=== PATIENT | female | born 1970 | race Caucasian/White ===

== ENCOUNTER 2018-07-26 13:31 | Emergency (ER) | payer MEDICARE, OTHER ==
[~2018-07-26] VITALS: Ht 154.9 cm; Wt 99.8 kg
[2018-07-26] MEDS ORDERED: FURO20TA4 (14:12)
[2018-07-26] MEDS ORDERED: DANT25CA (14:12)
[2018-07-26] MEDS ORDERED: GLYB2.5T4 (14:12)
[2018-07-26] MEDS ORDERED: CLOP75TA28 (14:12)
[2018-07-26] MEDS ORDERED: LEVO200T6 (14:12)
[2018-07-26] MEDS ORDERED: MIRA50TA (14:12)
[2018-07-26] MEDS ORDERED: AMIT25TA9 (14:12)
[2018-07-26] MEDS ORDERED: ATOR40TA70 (14:12)
[2018-07-26] MEDS ORDERED: DULO60CA58 (14:13)
[2018-07-26] MEDS ORDERED: METO-333 (14:13)
--- NOTE | 2018-07-26 14:15 | ED Cough/URI ---
General Chief Complaint: Cough/Cold/Flu Symptoms Stated Complaint: CONGESTION;COUGH Nursing Triage Note: ARRIVED VIA AMB TO ROOM 05. COMPLAINS OF COUGH AND CONGESTION X2 DAYS. STATES SHE HAS NOT TAKEN HER BP MEDS THIS AM. PT STATES SHE HAS THEM WITH HER ET VINCENT ENCOURAGED HER TO TAKE THEM. Source: patient Exam Limitations: no limitations History of Present Illness Date Seen by Provider: Jul 26, 2018 Time Seen by Provider: 14:13 Initial Comments Patient is a 48-year-old female who presents to the emergency room POV with complaints of cough and congestion for the past 2 days. She denies any fevers and reports only using Vicks vapor rub and cough drops for symptom treatment. She is also hypertensive on arrival to the emergency room and denies taking her blood pressure medications today but has been with her and I instructed her to take them. She reports that 2 of her roommates have also checked into the ER with her for similar complaints of URI. Timing/Duration: other (2 days) Severity/Quality: mild, dry cough Associated Symptoms: cough, nasal congestion Allergies and Home Medications Patient Home Medication List Home Medication List Reviewed: Yes Review of Systems Review of Systems Constitutional: see HPI; No chills, No fever EENTM: see HPI, nose congestion, other (sinus drainage) Respiratory: see HPI, cough Past Ywybzvd-Vsfoql-Lsnndu Hx Past Med/Social Hx: Reviewed Nursing Past Med/Soc Hx Patient Social History Alcohol Use: Rarely Uses Recreational Drug Use: No Smoking Status: Current Everyday Smoker Recent Foreign Travel: No Contact w/Someone Who Travel: No Recent Infectious Disease Expo: No Recent Hopitalizations: No Past Medical History Surgeries: Yes (TRIPPLE BYPASS) Gallbladder Respiratory: No Cardiac: Yes Hypertension Neurological: No Gastrointestinal: No Musculoskeletal: No Endocrine: No HEENT: No Cancer: No Integumentary: No Family Medical History Reviewed Nursing Family Hx Physical Exam Vital Signs - First Documented 07/26/18 13:48 Temp 98.0 Pulse 101 Resp 16 B/P (MAP) 222/113 (149) Pulse Ox 97 O2 Delivery Room Air Capillary Refill : Less Than 3 Seconds Height: 5'1.00" Weight: 220lbs. oz. 99.465670oh; BMI Method:Stated General Appearance: WD/WN, no apparent distress Eyes: Bilateral Eye Normal Inspection, Bilateral Eye PERRL, Bilateral Eye EOMI HEENT: normal ENT inspection, TMs normal, pharynx normal Neck: non-tender, full range of motion, supple, normal inspection Respiratory: chest non-tender, lungs clear, normal breath sounds, no respiratory distress, no accessory muscle use Cardiovascular: normal peripheral pulses, regular rate, rhythm, no edema, no gallop, no JVD, no murmur Neurologic/Psychiatric: alert, normal mood/affect, oriented x 3 Skin: normal color, warm/dry Lymphatic: no adenopathy Progress/Results/Core Measures Suspected Sepsis Recent Fever Within 48 Hours: No Infection Criteria Present: Suspected New Infection New/Unexplained Altered Menta: No Sepsis Screen: No Definite Risk SIRS Temperature:98.0 Pulse: 101 Respiratory Rate: 16 Blood Pressure 222 /113 Mean: 149 Results/Orders Vital Signs/I&O 07/26/18 07/26/18 13:48 14:34 Temp 98.0 Pulse 101 81 Resp 16 16 B/P (MAP) 222/113 (149) 194/95 Pulse Ox 97 98 O2 Delivery Room Air Room Air Capillary Refill : Less Than 3 Seconds Blood Pressure Mean: 149 Progress Note : Time: 14:19 Progress Note I have seen and evaluated the patient. I have instructed her to continue over the counter medications for URI symptoms and the use of prescription cough syrup if needed that was provided. She did take her own blood pressure medications as prescribed. She agrees with plan of care, return precautions were given. Departure Impression Primary Impression: Upper respiratory infection Additional Impression: Viral illness Disposition: 01 HOME, SELF-CARE Condition: Stable/Unchanged Departure-Patient Inst. Decision time for Depature: 14:19 Patient Instructions: LOCAL PHYSICIAN LIST, Cough, Runny Nose, and the Common Cold (DC) Add. Discharge Instructions: Practice good hand hygiene by using hand sanitizers and handwashing. Use over- the-counter cough and cold medicine remedies as necessary. Tylenol Motrin if you have fever or malaise or body aches. Follow-up with your primary doctor if your symptoms are not improving by 5-7 days. Return back to the emergency room for any worsening symptoms or concerns as needed. All discharge instructions reviewed with patient and/or family. Voiced understanding. VINCENT SANTANA Jul 26, 2018 14:15
--- OUTSIDE RECORDS SUMMARY | 2018-07-26 14:27 | XMS REPORT ---
Author Author [facility] Organization [facility] Address [address] [place], [place] [address] Phone [phone] Summary purpose TRANSITION OF CARE AUTO GENERATION Chief Complaint and Reason for Visit No authorized Reason for Visit (Admitting Diagnosis) is available for this visit. Problem list No authorized problems tracked for continuity of care are available for this visit. Encounters No authorized problems tracked for encounter diagnoses are available for this visit. Medications No medications recorded for this patient visit Allergies, adverse reactions, alerts Allergen Category Ingredient Status Reaction Severity Onset Penicillins Drug Allergy Penicillins Confirmed or Verified Immunizations No immunizations recorded for this patient visit Relevant diagnostic tests and/or laboratory data RESULTS Radiology Results [id number]:03:00 DUP ILA UNILATERAL PACs Image DATE OF EXAM: Feb 18 2016 [id number] VENOUS DUPLEX-UNILATERAL- RIGHT: RADIOLOGY REPORT DATE OF SERVICE: 02/18/16 HISTORY: Right lower extremity pain, evaluate for deep venous thrombosis, history of CVA. RIGHT LOWER EXTREMITY VENOUS DOPPLER 1420 HOURS The lower extremity veins were evaluated with high resolution real time imaging, pulsed and color flow Doppler. There is normal spontaneous phasic flow in the common femoral, femoral, popliteal, posterior tibial, and greater saphenous veins. All deep vein segments are fully compressible. There is normal augmentation of flow with distal compression. No thrombi are evident. IMPRESSION: Normal bilateral lower extremity venous Doppler. MD BRANDON Sultana/pr02/18/2016 14:30:00 / 02/18/2016 14:54:03 cc:Kati Brown PA-C This document has been electronically Signed by: On: DATE OF EXAM: Feb 18 2016 [id number] VENOUS DUPLEX-UNILATERAL- RIGHT: RADIOLOGY REPORT DATE OF SERVICE: 02/18/16 HISTORY: Right lower extremity pain, evaluate for deep venous thrombosis, history of CVA. RIGHT LOWER EXTREMITY VENOUS DOPPLER 1420 HOURS The lower extremity veins were evaluated with high resolution real time imaging, pulsed and color flow Doppler. There is normal spontaneous phasic flow in the common femoral, femoral, popliteal, posterior tibial, and greater saphenous veins. All deep vein segments are fully compressible. There is normal augmentation of flow with distal compression. No thrombi are evident. IMPRESSION: Normal bilateral lower extremity venous Doppler. Herb Bob MD MWD/nh02/18/2016 14:30:00 / 02/18/2016 14:54:03 cc:Kati Brown PA-C This document has been electronically Signed by: HERB BOB MD On: Feb 18 20164:03P Result Amended on 2016-02-18 at 16:03:17. Previous status was MD. History of procedures No procedures recorded for this patient visit. Functional status No functional or cognitive status observations are available for this visit. Vital signs No authorized vital signs are available for this visit. Social history No Social History or smoking status observations were recorded for this visit. ( Unknown if ever smoked.) Treatment Plan No treatment plan text is available for this visit. Hospital discharge instructions No discharge instruction text is available for this visit.
--- OUTSIDE RECORDS SUMMARY | 2018-07-26 14:27 | XMS REPORT ---
Author Author [facility] [employer] [facility] Medical Staff Organization [facility] Address [address] [place], [place] [address] Phone [phone] Summary purpose TRANSITION OF CARE AUTO GENERATION [...] Relevant diagnostic tests and/or laboratory data RESULTS Chemistry [id number]:00:00 Result Normal Range Units Sodium 134 134-145 mEq/l Potassium 4.5 3.5-5.1 mEq/l Chloride L 97 98-107 mEq/l CO2 27.5 22-28 mEq/l Glucose H 199 70-105 mg/dl BUN H 29 7-18 mg/dl Creatinine H 1.33 0.6-1.0 mg/dl Calcium 8.9 8.4-10.2 mg/dl Magnesium L 1.5 1.7-2.8 mg/dl Osmolality L 279.7 280-300 mOsm/L Anion GAP 9.5 8-16 BUN/Creatinine Ratio H 21.8 10-20 Estimated GFR L 43 >=60 mL/min/1.7 History of procedures No procedures recorded for [...]
--- OUTSIDE RECORDS SUMMARY | 2018-07-26 14:28 | XMS REPORT ---
Author Author [facility] Organization [facility] Address [address] [place], [place] [address] Phone [phone] Care Team Providers Care Poundmaster Name Role Phone FAN SALCEDO PP [phone] Summary purpose TRANSITION OF CARE AUTO GENERATION [...] visit Relevant diagnostic tests and/or laboratory data No authorized results are available for this patient visit History of procedures Procedure Code Code Type Description Date Performed Performing Physician 20442 CPT-4 EMERGENCY DEPT VISIT 05-04-2016 NIMESH ANTONY 74906 CPT-4 EMERGENCY DEPT VISIT 05-04-2016 NIMESH ANTONY Functional status Functional Status Finding Observation Time Abdomen Appearance round :03 Abdomen non-tender :03 Cain no :03 Urination normal :03 Quality sym/unlabored :03 Cough absent :03 Secretions no :03 Breath Sounds RUL clear :03 Breath Sounds RML clear :03 Breath Sounds RLL clear :03 Breath Sounds KAYCEE clear :03 Breath Sounds LLL clear :03 Airway natural :03 Chest Tube no :03 Oxygen no :36 Temp >100.4 no :03 Temp <96.8 no :03 Chills with rigors no :03 HR > 90bpm no :03 Respirations > 20 no :03 Systolic <90 no :03 headache stiff neck no :03 WBC > 94911 no :03 Nursing Note Dismissed home per Dr Antony. Discharge instructions given and understood by pt who verbalized understanding. Wheeled to exit in stable condition. 05-04-2016 16:36 Vital signs Type Value Date Respiration Rate 18breaths per minute :36 Pulse 88beats per minute :36 Oxygen Saturation 99% :36 BP Systolic 128mmHg :36 BP Diastolic 84mmHg 62-69-210387:36 Temperature 99F 89-07-239071:36 Social history Type Value Smoking Status CURRENT EVERY DAY SMOKER Treatment Plan No treatment plan text is available for this visit. Hospital discharge instructions Flu 2014
--- OUTSIDE RECORDS SUMMARY | 2018-07-26 14:28 | XMS REPORT ---
Author Author [facility] Medical Staff Organization [facility] Address [address] [place], [place] [address] Phone [phone] Care Team Providers Care Traffic Control Operator Name Role Phone FAN SALCEDO PP [phone] Summary purpose TRANSITION OF CARE AUTO GENERATION [...] diagnostic tests and/or laboratory data RESULTS Chemistry [id number]:29:00 Result Normal Range Units Sodium 138 134-145 mEq/l Potassium 4.1 3.5-5.1 mEq/l Chloride L 97 98-107 mEq/l CO2 H 32.4 22-28 mEq/l Glucose H 172 70-105 mg/dl BUN H 21 7-18 mg/dl Creatinine H 1.43 0.6-1.0 mg/dl Calcium 9.0 8.4-10.2 mg/dl Osmolality 282.7 280-300 mOsm/L Anion GAP 8.6 8-16 BUN/Creatinine Ratio 14.7 10-20 Estimated GFR L 40 >=60 mL/min/1.7 History of procedures No procedures [...]
--- OUTSIDE RECORDS SUMMARY | 2018-07-26 14:28 | XMS REPORT ---
Author Author [facility] Medical Staff Organization [facility] Address [address] [place], [place] [address] Phone [phone] Care Team Providers Care Quality Assurance Name Role Phone FAN SALCEDO PP [phone] Summary purpose TRANSITION OF CARE AUTO GENERATION [...] for this patient visit History of procedures No procedures recorded for [...]
--- OUTSIDE RECORDS SUMMARY | 2018-07-26 14:28 | XMS REPORT ---
Author Author [facility] Medical Staff Organization [facility] Address [address] [place], [place] [address] Phone [phone] Care Team Providers Care Java Web Engineer Name Role Phone FAN SALCEDO PP [phone] Summary purpose TRANSITION OF CARE AUTO GENERATION [...] Code Type Description Date Performed Performing Physician 58592 CPT-4 PT EVALUATION 10-02-2015 FAN PAL 73275 CPT-4 THERAPEUTIC EXERCISES 10-15-2015 FAN PAL 88515 CPT-4 THERAPEUTIC EXERCISES 10-17-2015 FAN PAL Functional status No functional or cognitive status [...]
--- OUTSIDE RECORDS SUMMARY | 2018-07-26 14:28 | XMS REPORT ---
Author Author [facility] [employer] [facility] Medical Staff Organization [facility] Address [address] [place], [place] [address] Phone [phone] Care Team Providers Care Advance Seal Delivery System Maintainer Name Role Phone FAN SALCEDO PP [phone] Summary purpose TRANSITION OF CARE AUTO GENERATION [...]
--- OUTSIDE RECORDS SUMMARY | 2018-07-26 14:28 | XMS REPORT ---
Author [facility] Organization [facility] Address [address] [place], [place] [address] Phone [phone] Care Team Providers Care Drier Unloader Name Role Phone FAN SALCEDO PP [phone] FAN SALCEDO PP [phone] FAN SALCEDO PP [phone] Summary purpose TRANSITION OF CARE AUTO GENERATION Chief Complaint and Reason for Visit Admit Diagnosis 1 UTI VOMITING Problem list No authorized problems tracked for continuity of care are available for this visit. Encounters The following conditions tracked for encounter diagnoses were recorded for this visit: Finding or Diagnosis Status Certainty Chronicity Onset *URINARY TRACT INFECTION Active Medications No medications recorded for this patient visit Allergies, adverse reactions, alerts Allergen Category Ingredient Status Reaction Severity Onset Penicillins Drug Allergy Penicillins Confirmed or Verified Immunizations No immunizations recorded for this patient visit Relevant diagnostic tests and/or laboratory data RESULTS Blood Cultures 35-01-439984:30:00 Blood Culture Plate Date and Time 04/03/2015 13:35 SourceBLOOD CULTURE REPORT NoGrowth at 1 day. Unless otherwise notified. Final report in 5 Days. Release Date/Time: 04/04/2015 07:40 Chemistry [id number]:17:00 Result Normal Range Units Sodium 138 134-145 mEq/l Potassium 3.9 3.5-5.1 mEq/l Chloride 101 98-107 mEq/l CO2 22.9 22-28 mEq/l Glucose H 178 70-105 mg/dl BUN 18 7-18 mg/dl Creatinine H 1.27 0.6-1.0 mg/dl Calcium 8.5 8.4-10.2 mg/dl TP - Total Protein 6.6 6.0-8.3 g/dl Albumin L 3.1 3.5-5 g/dl Bilirubin - Total 0.3 0.1-1.0 mg/dl AST 12 10-42 IU/L ALT 17 12-65 IU/L ALP H 106 25-72 IU/L Osmolality 282.0 280-300 mOsm/L Albumin/Globulin Ratio 0.9 0-8 Anion GAP 14.1 8-16 BUN/Creatinine Ratio 14.2 10-20 Estimated GFR L 46 >=60 mL/min/1.7 :30:00 Result Normal Range Units Sodium 135 134-145 mEq/l Potassium 3.6 3.5-5.1 mEq/l Chloride 98 98-107 mEq/l CO2 24.0 22-28 mEq/l Glucose H 244 70-105 mg/dl BUN H 24 7-18 mg/dl Creatinine H 1.90 0.6-1.0 mg/dl Calcium 8.7 8.4-10.2 mg/dl Osmolality 282.2 280-300 mOsm/L Anion GAP 13.0 8-16 BUN/Creatinine Ratio 12.6 10-20 Estimated GFR L 29 >=60 mL/min/1.7 Hematology :17:00 Result Normal Range Units WBC H 14.9 4.8-10.8 103/uL RBC L 3.4 4.2-5.4 106/uL HGB L 11.2 12.0-16.0 g/dl HCT L 32.2 36.9-47.0 % MCV 94.2 81-99 FL MCH H 32.7 27-31 pg MCHC 34.8 33-37 g/dl RDW 13.0 11.5-15.5 % PLT 245 130-400 103/uL MPV 10.1 7.3-10.4 FL Neutro % H 73.1 40-70 % Lymph % L 15.7 20-40 % [place] % 9.4 0-10.0 % Eos % 1.6 0-7.0 % Baso % 0.2 0-2 % Neutro # H 10.9 1.5-7.5 103/uL Lymph # 2.3 0.9-4.0 103/uL [place] # H 1.4 0-0.8 103/uL Eos # 0.2 0-0.6 103/uL Baso # 0.0 0-0.1 103/uL :30:00 Result Normal Range Units WBC H 23.0 4.8-10.8 103/uL RBC L 3.5 4.2-5.4 106/uL HGB L 11.6 12.0-16.0 g/dl HCT L 33.3 36.9-47.0 % MCV 94.1 81-99 FL MCH H 32.8 27-31 pg MCHC 34.8 33-37 g/dl RDW 13.1 11.5-15.5 % PLT 268 130-400 103/uL MPV 10.2 7.3-10.4 FL Segs H 76.0 40-70 % Bands H 10.0 0-5 % Lymphs L 6.0 20-40 % [place] 7.0 0-10 % Eos 1.0 0-7 % Radiology Results :17:00 Result Normal Range Units MPV 10.1 7.3-10.4 FL :30:00 Result Normal Range Units MPV 10.2 7.3-10.4 FL History of procedures No procedures recorded for this patient visit. Functional status Functional Status Finding Observation Time Hearing Prob Loc none 17-42-795765:50 Vision Problems no 08-60-825729:50 Ambulation Asst Dev other (specify) Comment: leg brace 05-81-736526:50 Range of Motion full 97-79-115243:06 Muscle Strength RUE 2 passive ROM 75-95-374084:06 Muscle Strength RLE 2 passive ROM 00-99-932079:06 Muscle Strength LUE 5 ROM full resist 10-26-543305:06 Muscle Strength LLE 5 ROM full resist 74-45-549290:06 Transfers assist x 1 16-33-848728:06 Ambulation in room 58-39-775902:06 Balance unsteady 75-31-995923:06 Bathing Assistance minimal 63-72-037719:50 Eating Assistance minimal 46-76-168156:50 Dressing Assistance minimal 70-68-472372:50 Toileting Assistance minimal 00-94-023613:50 Transfer Assistance minimal 39-49-896498:50 Decline Slf Care/Mob no 12-96-731140:50 Phys Cond Stable yes 56-30-049687:50 Nutrition nausea/vomiting 60-73-471595:06 Diet ADA specify calorie 61-56-374863:34 Oral Cavity moist and intact : Teeth intact 21-25-705176:06 Dental Hygiene good 97-00-147238:06 Abdomen Appearance obese 37-49-118767:06 Abdomen soft 32-79-368300:06 Bowel Sounds present 87-64-279673:06 NG Tube no :06 Feeding Tube none 87-89-286723:06 Acin no 39-90-056295:06 Cont Bladder Irr no 46-86-355292:06 Ostomy no 26-87-970840:06 Stool normal :06 Color normal :00 Consistency loose :00 Urination normal 40-85-101206:06 Urine Clarity clear 48-87-517220:06 Urine Color yellow 37-09-289184:06 Quality sym/unlabored 58-36-370861:06 Cough absent :06 Secretions no :06 Breath Sounds RUL diminished :32 Breath Sounds RML diminished :32 Breath Sounds RLL diminished :32 Breath Sounds KAYCEE diminished :32 Breath Sounds LLL diminished 78-99-011827:32 Airway natural :06 Chest Tube no :06 Oxygen no :06 Oxygen Flow Rate ra 16-19-024548:32 C-PAP no 66-08-862263:06 BI-PAP no 90-77-026102:06 New Infection urinary tract infect 63-52-791488:06 Temp >100.4 no 99-45-813886:06 Temp <96.8 no :06 Chills with rigors no :06 HR > 90bpm yes 73-31-324480:06 Respirations > 20 no :06 Systolic <90 no 73-99-745319:06 headache stiff neck no 71-35-083064:06 WBC > 20136 yes 30-52-505959:06 WBC < 4000 no 46-09-608723:06 Rapid Resp no 95-77-745349:06 IV Site Location Rt forearm 35-78-782583:07 IV Type peripheral :07 IV Site Information existing :07 IV Site Start Attmpt 1 times :05 IV Site Benedict 22 :07 IV Site Appearance WNL :07 IV Site Color clear :07 IV Site Patent yes :07 Dressing Changed yes :05 Dressing Type occlusive :07 Nursing Note Pt off unit tp personal w/c to POV in good conditio with belongings in hand 82-89-162797:45 Cognitive Status Finding Observation Time Oriented To Date 5 Yes :[address] 5 Yes :50 Name 3 Objects 3 Yes :50 Name Object in Rm 2 Yes :50 Recall 3 Objects 3 Yes 77-53-964086:50 Repeats a Phrase 1 Yes :50 Follows Verbal Direc 3 Yes 29-65-661101:50 Follows Written Dire 1 Yes 97-87-085609:50 Write a Sentance 1 Yes :50 Draw an Object 1 Yes :50 Mini Mental Total 25 points :50 Less than 20 Phys not applicable 17-43-707277:50 Learning Ability comprehends well :00 Neurological yes :00 Psychological no :00 Physical yes :00 Hearing no :00 Printing Sales Representative Needed no :00 Sign Language no :00 Emotional no :00 Vision no :00 Laguage no :00 Financial no :00 Vital signs Type Value Date Respiration Rate 20breaths per minute :32 Pulse 103beats per minute :32 Oxygen Saturation 95% :32 BP Systolic 143mmHg :22 BP Diastolic 71mmHg :22 Temperature 98.7F 82-76-506086:22 Height 62inches 61-84-098338:45 Weight 217LB 77-29-999833:45 Social history Type Value Smoking Status FORMER SMOKER Treatment Plan No treatment plan text is available for this visit. Hospital discharge instructions Discharge Date/Time 04/04/2015 14:45 Accompanied By Spouse Relationship spouse/signif other Dismissal Condition good Disposition on DC home Valuables yes Valuable Type other (specify) Comment: clothes/brace Valuables Returned T patient DC Inst/Educ Give yes Exit Care Educ Given yes Med/Side Effects Rev yes DC Med Rec Rev yes Immun Indicated no PNE Vac refused Flu Vac refused Tetanus Vac current Diet Explained yes Follow up appt already scheduled Follow Up Appt D/T 04/12/2015 14:00
--- OUTSIDE RECORDS SUMMARY | 2018-07-26 14:28 | XMS REPORT ---
Author Author [facility] [employer] [facility] Medical Staff Organization [facility] [employer] [facility] Address [address] [place], [place] [address] Phone [phone] Care Team Providers Care Cut Pressman Name Role Phone FAN SALCEDO PP [phone] Summary purpose TRANSITION OF CARE AUTO GENERATION [...] tests and/or laboratory data RESULTS Radiology Results 34-31-940608:29:00 FOOT XRAY - 3 VIEW PACs Image DATE OF EXAM: Mar 25 2016 RAD 0649-FOOT XRAY-3 VIEW- RIGHT: RADIOLOGY REPORT DATE OF SERVICE: 03/25/16 HISTORY: Patient has right foot pain after trauma with a power chair running over the foot. RIGHT FOOT 3 VIEWS 1955 HOURS The bony structures and joints appear intact. No fracture or subluxation is seen. Soft tissues are swollen over the dorsum of foot. IMPRESSION: Soft tissue swelling. No fracture. Marlena Mckeon DO /lisa 03/26/2016 08:45:00 / 03/26/2016 09:32:09 cc:Fan Brown PA-C This document has been electronically Signed by: On: DATE OF EXAM: Mar 25 2016 RAD 0649-FOOT XRAY-3 VIEW- RIGHT: RADIOLOGY REPORT DATE OF SERVICE: 03/25/16 HISTORY: Patient has right foot pain after trauma with a power chair running over the foot. RIGHT FOOT 3 VIEWS 1955 HOURS The bony structures and joints appear intact. No fracture or subluxation is seen. Soft tissues are swollen over the dorsum of foot. IMPRESSION: Soft tissue swelling. No fracture. Marlena Mckeon DO MW/nh 03/26/2016 08:45:00 / 03/26/2016 09:32:09 cc:Fan Brown PA-C This document has been electronically Signed by: MARLENA MCKEON DO On: Mar 26 20163:29P Result Amended on 2016-03-26 at 15:29:33. Previous status was TN. History of procedures Procedure Code Code Type Description Date Performed Performing Physician 11815 CPT-4 X-RAY EXAM OF FOOT 03-25-2016 ROGELIO WAITELES 50318 CPT-4 EMERGENCY DEPT VISIT 03-25-2016 ROGELIO CANDELARIO 86037 CPT-4 EMERGENCY DEPT VISIT 03-25-2016 ROGELIO PALOMINO L1902 CPT-4 AFO ANKLE GAUNTLET 03-25-2016 ROGELIO PALOMINO Functional status Functional Status Finding Observation Time Abdomen Appearance round 13-36-829304:31 Abdomen non-tender :31 Cain no 18-58-498368:31 Urination normal 79-96-758778:31 Quality sym/unlabored :31 Cough absent :31 Secretions no :31 Airway natural :31 Chest Tube no :31 Oxygen no :10 Temp >100.4 no : Temp <96.8 no :31 Chills with rigors no :31 HR > 90bpm no :31 Respirations > 20 no :31 Systolic <90 no :31 headache stiff neck no :31 WBC > 37237 no :15 Nursing Note Pt exited ER with discharge instructions in personal power wheelchair in good condition. :21 Vital signs Type Value Date Respiration Rate 18breaths per minute :10 Pulse 94beats per minute :10 Oxygen Saturation 98% :10 BP Systolic 156mmHg 39-57-236727:10 BP Diastolic 90mmHg :10 Temperature 96.9F :10 Height 61inches :15 Weight 198LB :15 Social history Type Value Smoking Status CURRENT EVERY DAY SMOKER Treatment Plan No treatment plan text is available for this visit. Hospital discharge instructions Dismissal Condition good Disposition on DC home DC Inst/Educ Give yes Med/Side Effects Rev no (explain) Comment: no meds Flu Vac 2014
--- OUTSIDE RECORDS SUMMARY | 2018-07-26 14:28 | XMS REPORT ---
Author Author [facility] Medical Staff Organization [facility] Address [address] [place], [place] [address] Phone [phone] Care Team Providers Care Hospice Nurse Name Role Phone FAN SALCEDO PP [phone] Summary purpose TRANSITION OF CARE AUTO GENERATION Chief Complaint and Reason for Visit Admit Diagnosis 1 PAIN IN LIMB Problem list No authorized problems tracked for [...] Code Type Description Date Performed Performing Physician A9270 CPT-4 NON-COVERED ITEM OR SERVICE 04-20-2015 MARLENA JACQUELINE 24585 CPT-4 EMERGENCY DEPT VISIT 04-20-2015 MARLENA JACQUELINE 71666 CPT-4 EMERGENCY DEPT VISIT 04-20-2015 MARLENA PHILLIPS Functional status Functional Status Finding Observation Time Diet ADA specify calorie 22-74-014209:45 Abdomen Appearance round 23-91-781837:45 Abdomen non-tender 95-80-242858:45 Bowel Sounds present 53-79-651686:45 Urination normal 06-96-994415:45 Quality sym/unlabored 65-87-720199:45 Cough absent 24-50-815374:45 Secretions no :45 Breath Sounds RUL clear :45 Breath Sounds RML clear :45 Breath Sounds RLL clear :45 Breath Sounds KAYCEE clear :45 Breath Sounds LLL clear 63-68-052046:45 Airway natural :45 Oxygen no :45 Oxygen Flow Rate RA :40 Temp >100.4 no :45 Temp <96.8 no :45 Chills with rigors no :45 HR > 90bpm no :45 Respirations > 20 no :45 Systolic <90 no : headache stiff neck no :45 Nursing Note dc inst discussed with pt. dcd to home with scripts in good condition :15 Vital signs Type Value Date Respiration Rate 16breaths per minute :40 Pulse 97beats per minute : Oxygen Saturation 98% :40 BP Systolic 154mmHg :40 BP Diastolic 85mmHg :40 Temperature 97.4F :40 Social history No Social History or smoking status observations were recorded for this visit. ( Unknown if ever smoked.) Treatment Plan No treatment plan text is available for this visit. Hospital discharge instructions Dismissal Condition good Disposition on DC home DC Inst/Educ Give yes Med/Side Effects Rev yes Flu Vac no
--- OUTSIDE RECORDS SUMMARY | 2018-07-26 14:28 | XMS REPORT ---
Author [facility] Organization [facility] Address [address] [place] [address] Phone [phone] Care Team Providers Care Deburrer Name Role Phone FAN SALCEDO PP [phone] Summary purpose TRANSITION OF CARE AUTO GENERATION Chief Complaint and Reason for Visit Admit Diagnosis 1 CHEST PAIN NOS Problem list No authorized problems tracked for continuity of care are available for this visit. Encounters No authorized problems tracked for encounter diagnoses are available for this visit. Medications Home Medications Medication Directions Started Status Source Xanax 0.5 mg Tab 0.5 mg Oral PRN 3 Times A Day for anxiety Current Rx Discharge Report aspirin 81 mg Cap, delayed release 81 mg Oral 1 Daily Current Patient recall naproxen Oral 500 mg Oral Daily If Needed for pain with food Discont Rx Discharge Report levothyroxine 75 mcg tablet 1 tablet oral 1 Daily Current Family recall from memory escitalopram 20 mg tablet 1 tablet oral 1 Daily Discont Family recall from memory Novolog Mix 70-30 FlexPen 100 unit/mL subcutaneous pen 18 units subQ 2 Times Daily 15 minutes before breakfast and supper Current Family recall from memory furosemide 20 mg tablet 1 tablet oral Wednesday, Wednesday, Wednesday Current Family recall from memory Lipitor 20 mg tablet 1 tablet oral At Bed Time Current Patient medication list Reglan 5 mg tablet 0.5 tablet oral 3 Times Daily Before meals Current Patient medication list Miralax 17 gram oral powder packet 1 other oral 1 Daily Mix in 8 oz of water Current Patient medication list quetiapine 25 mg tablet 1 tablet oral At Bed Time Current Patient medication list baclofen 10 mg tablet 0.5 tablet oral 1 Daily This is given at noon in addition to the PRN order Current Patient medication list baclofen 10 mg tablet 0.25 tablet oral PRN Every 8 Hours Current Patient medication list Dulcolax (bisacodyl) 5 mg tablet,delayed release 2 tablet oral As Needed Current Patient medication list omeprazole 20 mg tablet,delayed release 1 tablet oral 2 Times Daily Current Patient medication list metoprolol succinate ER 25 mg tablet,extended release 24 hr 1 tablet oral 2 Times Daily Current Patient medication list Plavix 75 mg tablet 1 tablet oral 1 Daily Current Patient medication list DuoNeb 0.5 mg-3 mg(2.5 mg base)/3 mL solution for nebulization 1 inhalation inhl PRN Every 4 Hours Current Patient medication list lisinopril 5 mg tablet 1 tablet oral 1 Daily Current Patient medication list Lovenox 40 mg/0.4 mL subcutaneous syringe 1 other subQ 1 Daily Sub Q daily Current Patient medication list acetaminophen 325 mg tablet 2 tablet oral As Needed Current Patient medication list ibuprofen 200 mg capsule 3 tablet oral PRN Every 8 Hours Current Patient medication list Allergies, adverse reactions, alerts Allergen Category Ingredient Status Reaction Severity Onset Penicillins Drug Allergy Penicillins Confirmed or Verified Immunizations No immunizations recorded for this patient visit Relevant diagnostic tests and/or laboratory data RESULTS Radiology Results [id number]:44:00 MYOCARDIAL SPECT MULT PACs Image DATE OF EXAM: 2014 [id number] SPECT MULTIPLE : RADIOLOGY REPORT DATE OF SERVICE:02/05/2015 HISTORY: Chest pain, abnormal EKG, history of stroke PHARMACOLOGICAL STRESS AND RESTING MYOCARDIAL PERFUSION STUDY (LEXISCAN CARDIOLITE STUDY) 1000 HOURS The patient initially is given 9.2 mCi of technetium 99m labeled Cardiolite intravenously. After a 70-minute delay, resting SPECT perfusion images are obtained. The patient is given a pharmacological stress agent by the referring clinician. At maximal stress, the patient is given 35.0 mCi of technetium 99m labeled Cardiolite intravenously. After an 84-minute delay, gated stress SPECT perfusion images are obtained. On both the gated and nongated images on the stress study, there is a perfusion defect involving the anterior wall of the left ventricle. The anterior wall perfuses normally on the resting images. This, therefore, represents an area of reversible ischemia. When evaluating the report from the patient's previous study performed on 05/28/2011, this has apparently appeared in the interval. No additional perfusion defects are present. The computer suggests this involves 3% of the myocardium. On the gated study, the left ventricular ejection fraction is calculated at 51% which is normal. There is essentially normal segmental left ventricular cardiac wall motion and thickening present. The end-systolic volume is 47 cc with the end-diastolic volume being 95 cc. IMPRESSION: 1. There is an area of reversible ischemia involving the anterior wall of the left ventricle. This area is abnormal on the stress images and normal on the resting images and, therefore, represents an area of reversible ischemia. 2. There are no additional abnormalities on the stress study. 3. The gated images have a left ventricular ejection fraction calculated at 51% which is normal. There is normal segmental left ventricular cardiac wall motion and thickening present. MD BRANDON AlvaradoP/cc02/05/2015 16:27:00 / 02/05/2015 20:12:42 cc:Dr. Tania Brown PA-C This document has been electronically Signed by: On: History of procedures Procedure Code Code Type Description Date Performed Performing Physician 47446 CPT-4 CARDIOVASCULAR STRESS TEST 02-05-2015 GILBERT SYLVESTER 77801 CPT-4 HT MUSCLE IMAGE SPECT, MULT 02-05-2015 GILBERT SYLVESTER A9500 CPT-4 TC99M SESTAMIBI 02-05-2015 GILBERT SYLVESTER J2785 CPT-4 REGADENOSON INJECTION 02-05-2015 GILBERT SYLVESTER Functional status Functional Status Finding Observation Time IV Site Location Left wrist 88-33-104044:40 IV Type peripheral 69-05-902539:40 IV Site Information discontinued 55-51-708973:41 IV Site Start Attmpt 2 times :40 IV Site Benedict 22 79-92-180912:40 IV Site Appearance WNL 80-16-496528:41 IV Site Color clear 68-08-837807:41 IV Site Patent yes 46-00-942759:41 Dressing Type gauze 51-89-602852:41 Nursing Note Second set of scans are completed. Patient given verbal and written discharge instructions. Patient also given a to go bag with juice and a cereal bar. Patient placed in waiting room in good condition to wait for [facility] staff to come and pick her up. alf contacted that patient is ready. 201410:15 Vital signs Type Value Date Height 62inches :50 Weight 228LB 55-31-813023:50 Social history No Social History or smoking status observations were recorded for this visit. ( Unknown if ever smoked.) Treatment Plan No treatment plan text is available for this visit. Hospital discharge instructions Discharge Date/Time 02/05/2015 10:15 Dismissal Condition good Disposition on DC home
--- OUTSIDE RECORDS SUMMARY | 2018-07-26 14:28 | XMS REPORT ---
Author [facility] Organization [facility] Address [address] [id number] Phone [phone] Care Team Providers Care Nude Model Name Role Phone FAN SALCEDO PP [phone] Summary purpose TRANSITION OF CARE AUTO GENERATION [...] Observation Time IV Site Location Left wrist :40 IV Type peripheral :40 IV Site Information discontinued 05-25-428786:41 IV Site Start Attmpt 2 times :40 IV Site Benedict 22 :40 IV Site Appearance WNL 81-93-960413:41 IV Site Color clear :41 IV Site Patent yes :41 Dressing Type gauze 04-82-093106:41 Nursing Note Second set of scans are completed. Patient given verbal and written discharge instructions. Patient also given a to go bag with juice and a cereal bar. Patient placed in waiting room in good condition to wait for senior care staff to come and pick her up. [facility] contacted that patient is ready. 201410:15 Vital signs Type Value Date Height 62inches :50 Weight 228LB 68-68-871209:50 Social history No Social History or smoking status observations were recorded for this visit. ( Unknown if ever smoked.) Treatment Plan No treatment plan text is available for this visit. Hospital discharge instructions Discharge Date/Time 02/05/2015 10:15 Dismissal Condition good Disposition on OR home
--- OUTSIDE RECORDS SUMMARY | 2018-07-26 14:29 | XMS REPORT ---
Author [facility] Organization [facility] Address [address] [place], [place] [address] Phone [phone] Care Team Providers Care Patient Account Specialist Name Role Phone FAN SALCEDO PP [phone] Summary purpose TRANSITION OF CARE AUTO GENERATION [...] Relevant diagnostic tests and/or laboratory data RESULTS Coagulation :00:00 Result Normal Range Units PT 10.0 9.1-12.0 Seconds INR 1.0 0.8-1.2 APTT 26.2 22-35.4 Seconds Chemistry [id number]:00:00 Result Normal Range Units Sodium 136 134-145 mEq/l Potassium 4.0 3.5-5.1 mEq/l Chloride L 97 98-107 mEq/l CO2 H 29.4 22-28 mEq/l Glucose H 174 70-105 mg/dl BUN 16 7-18 mg/dl Creatinine H 1.10 0.6-1.0 mg/dl Calcium 8.6 8.4-10.2 mg/dl Magnesium L 1.1 1.7-2.8 mg/dl Osmolality L 277.3 280-300 mOsm/L Anion GAP 9.6 8-16 BUN/Creatinine Ratio 14.5 10-20 Estimated GFR L 54 >=60 mL/min/1.7 Hematology :00:00 Result Normal Range Units WBC H 16.6 4.8-10.8 103/uL RBC 4.3 4.2-5.4 106/uL HGB 13.6 12.0-16.0 g/dl HCT 40.2 36.9-47.0 % MCV 94.6 81-99 FL MCH H 32.0 27-31 pg MCHC 33.8 33-37 g/dl RDW 12.8 11.5-15.5 % PLT 302 130-400 103/uL MPV H 10.6 7.3-10.4 FL Reference Lab (Sendout) [id number]:00:00 Result Normal Range Units D-Dimer 126 0-400 ng/ml Radiology Results [id number]:00:00 Result Normal Range Units MPV H 10.6 7.3-10.4 FL History of procedures Procedure Code Code Type Description Date Performed Performing Physician 24934 CPT-4 ROUTINE VENIPUNCTURE 02-10-2016 JOSSY VILLA 47503 CPT-4 METABOLIC PANEL TOTAL CA 02-10-2016 JOSSY VILLA 58451 CPT-4 ASSAY OF MAGNESIUM 02-10-2016 JOSSY VILLA 52874 CPT-4 COMPLETE CBC, AUTOMATED 02-10-2016 JOSSY VILLA 31706 CPT-4 FIBRIN DEGRADATION, QUANT 02-10-2016 JOSSY VILLA 06739 CPT-4 PROTHROMBIN TIME 02-10-2016 JOSSY VILLA 39668 CPT-4 THROMBOPLASTIN TIME, PARTIAL 02-10-2016 JOSSY VILLA A9270 CPT-4 NON-COVERED ITEM OR SERVICE 02-10-2016 JOSSY VILLA 91135 CPT-4 EMERGENCY DEPT VISIT 02-09-2016 JOSSY VILLA 85042 CPT-4 EMERGENCY DEPT VISIT 02-09-2016 JOSSY VILLA Functional status Functional Status Finding Observation Time Abdomen Appearance round 98-54-877037:30 Abdomen non-tender 22-80-341784:30 Cain no 01-04-068694:30 Urination normal 73-82-648119:30 Quality sym/unlabored :30 Cough absent :30 Secretions no :30 Airway natural :30 Chest Tube no :30 Oxygen no 55-39-454720:08 Temp >100.4 no : Temp <96.8 no :30 Chills with rigors no : HR > 90bpm no : Respirations > 20 no : Systolic <90 no : headache stiff neck no :30 IV Site Location no iv access :50 Nursing Note pt dc'd to home at this time in good condition and with all known belongings. pt exited per personal wc in care of friend. rx for mag oxide in hand. 02-10-2016 01:08 Vital signs Type Value Date Respiration Rate 18breaths per minute 69-01-163824:08 Pulse 103beats per minute :08 Oxygen Saturation 94% 95-96-780493:08 BP Systolic 126mmHg 03-57-100761:08 BP Diastolic 70mmHg 80-25-558009:08 Temperature 97.1F 15-72-249797:08 Social history Type Value Smoking Status CURRENT EVERY DAY SMOKER Treatment Plan No treatment plan text is available for this visit. Hospital discharge instructions Dismissal Condition good Disposition on DC home DC Inst/Educ Give yes Med/Side Effects Rev yes Flu Vac no
--- OUTSIDE RECORDS SUMMARY | 2018-07-26 14:29 | XMS REPORT ---
Author Author [facility] Medical [facility] Organization [facility] Address [address], [place] [address] Phone [phone] Care Team Providers Care Floor Cleaner Name Role Phone FAN SALCEDO PP [phone] Summary purpose TRANSITION OF CARE AUTO GENERATION [...] tests and/or laboratory data RESULTS Radiology Results [id number]:02:00 Ankle 3 View PACs Image DATE OF EXAM: 2015 RAD 0094-ANKLE 3 VIEW- RIGHT: RADIOLOGY REPORT DATE OF SERVICE: 04/07/2016 HISTORY: Trauma, pain. RIGHT ANKLE X-RAY - 3 VIEWS 1645 HOURS There is mild soft tissue swelling about the ankle. The ankle mortise appears intact. Joint effusion is not seen. The ankle bones appear intact. IMPRESSION: 1. Mild soft tissue swelling. 2. No evidence of fracture. DO CORINA Rojas/cdj04/08/2016 07:55:00 / 04/08/2016 10:08:38 cc:Fan Brown This document has been electronically Signed by: On: DATE OF EXAM: 2015 RAD 0094-ANKLE 3 VIEW- RIGHT: RADIOLOGY REPORT DATE OF SERVICE: 04/07/2016 HISTORY: Trauma, pain. RIGHT ANKLE X-RAY - 3 VIEWS 1645 HOURS There is mild soft tissue swelling about the ankle. The ankle mortise appears intact. Joint effusion is not seen. The ankle bones appear intact. IMPRESSION: 1. Mild soft tissue swelling. 2. No evidence of fracture. DO CORINA Rojas/cdj04/08/2016 07:55:04/08/2016 10:08:38 cc:Fan Brown This document has been electronically Signed by: NICOLA TIERNEY DO On: 2015 12:02P Result Amended on 2016-04-08 at 12:03:03. Previous status was [place]. FOOT XRAY - 3 VIEW PACs Image DATE OF EXAM: 2015 RAD 0649-FOOT XRAY-3 VIEW- RIGHT: RADIOLOGY REPORT DATE OF SERVICE: 04/07/2016 HISTORY: Right foot pain on lateral side, wheelchair trauma 2 weeks ago. RIGHT FOOT X-RAY - 3 VIEWS 1645 HOURS Evidence of acute fracture injury is not identified. There is mild flexion deformity of the toes. Soft tissue swelling is mild. Fracture is not identified. IMPRESSION: 1. No active or acute bony pathology. 2. Mild soft tissue swelling. Nicola Tierney DO WP/cdj04/08/2016 07:55:04/08/2016 10:06:27 cc:Fan Brown This document has been electronically Signed by: On: DATE OF EXAM: 2015 RAD 0649-FOOT XRAY-3 VIEW- RIGHT: RADIOLOGY REPORT DATE OF SERVICE: 04/07/2016 HISTORY: Right foot pain on lateral side, wheelchair trauma 2 weeks ago. RIGHT FOOT X-RAY - 3 VIEWS 1645 HOURS Evidence of acute fracture injury is not identified. There is mild flexion deformity of the toes. Soft tissue swelling is mild. Fracture is not identified. IMPRESSION: 1. No active or acute bony pathology. 2. Mild soft tissue swelling. DO CORINA Rojas/cdj04/08/2016 07:55:04/08/2016 10:06:27 cc:Fan Brown This document has been electronically Signed by: NICOLA TIERNEY DO On: 2015 12:02P Result Amended on 2016-04-08 at 12:02:56. Previous status was [place]. History of procedures Procedure Code Code Type Description Date Performed Performing Physician 81721 CPT-4 X-RAY EXAM OF FOOT 04-07-2016 FAN BROWN 09096 CPT-4 X-RAY EXAM OF ANKLE 04-07-2016 FAN BROWN Functional status No functional or cognitive status [...]
--- OUTSIDE RECORDS SUMMARY | 2018-07-26 14:29 | XMS REPORT ---
Author Author [facility] Medical Staff Organization [facility] Address [address] [place], [place] [address] Phone [phone] Care Team Providers Care Continuous Improvement Director Name Role Phone FAN SALCEDO PP [phone] Summary purpose TRANSITION OF CARE AUTO GENERATION [...] headache stiff neck no :03 WBC > 38299 no :03 Nursing Note Dismissed home per Dr Antoyn. Discharge instructions given and understood by pt who verbalized understanding. Wheeled to exit in stable condition. 05-04-2016 16:36 Vital signs Type Value Date Respiration Rate 18breaths per minute :36 Pulse 88beats per minute :36 Oxygen Saturation 99% :36 BP Systolic 128mmHg :36 BP Diastolic 84mmHg :36 Temperature 99F :36 Social history Type Value Smoking Status CURRENT EVERY DAY SMOKER Treatment Plan No treatment plan text is available for this visit. Hospital discharge instructions Flu 2014
--- OUTSIDE RECORDS SUMMARY | 2018-07-26 14:29 | XMS REPORT ---
Author Author [facility] Medical Staff Organization [facility] Address [address] [place], [place] [address] Phone [phone] Care Team Providers Care Director Patient Accounting Name Role Phone FAN SALCEDO PP [phone] Summary purpose TRANSITION OF CARE AUTO GENERATION [...] Finding Observation Time Diet ADA specify calorie 23-17-397987:45 Abdomen Appearance round 02-49-586143:45 Abdomen non-tender 17-12-760033:45 Bowel Sounds present :45 Urination normal :45 Quality sym/unlabored :45 Cough absent :45 Secretions no :45 Breath Sounds RUL clear :45 Breath Sounds RML clear :45 Breath Sounds RLL clear :45 Breath Sounds KAYCEE clear :45 Breath Sounds LLL clear :45 Airway natural :45 Oxygen no :45 Oxygen Flow Rate RA :40 Temp >100.4 no :45 Temp <96.8 no :45 Chills with rigors no :45 HR > 90bpm no :45 Respirations > 20 no : Systolic <90 no :45 headache stiff neck no :45 Nursing Note dc inst discussed with pt. dcd to home with scripts in good condition :15 Vital signs Type Value Date Respiration Rate 16breaths per minute :40 Pulse 97beats per minute :40 Oxygen Saturation 98% :40 BP Systolic 154mmHg [...]
--- OUTSIDE RECORDS SUMMARY | 2018-07-26 14:29 | XMS REPORT ---
Author Author [facility] [employer] [facility] Medical Staff Organization [facility] [employer] [facility] Address [address] [place], [place] [address] Phone [phone] Summary purpose TRANSITION OF CARE AUTO GENERATION [...] diagnostic tests and/or laboratory data RESULTS Chemistry [id number]:36:00 Result Normal Range Units Triglycerides H 256 35-160 mg/dl Cholesterol 143 120-200 mg/dl HDL Cholesterol L 33 39-96 mg/dl VLDL Cholesterol H 51 5-40 mg/dl LDL Cholesterol 69 30-100 mg/dl History of procedures No procedures recorded for [...]
--- OUTSIDE RECORDS SUMMARY | 2018-07-26 14:29 | XMS REPORT ---
Author Author [facility] Medical Staff Organization [facility] Address [address] [place], [place] [address] Phone [phone] Summary purpose TRANSITION OF CARE AUTO GENERATION [...] diagnostic tests and/or laboratory data RESULTS Chemistry 90-06-192310:30:00 Result Normal Range Units Sodium 135 134-145 mEq/l Potassium 4.4 3.5-5.1 mEq/l Chloride L 97 98-107 mEq/l CO2 27.9 22-28 mEq/l Glucose H 221 70-105 mg/dl BUN 17 7-18 mg/dl Creatinine H 1.62 0.6-1.0 mg/dl Calcium 9.0 8.4-10.2 mg/dl Osmolality L 278.4 280-300 mOsm/L Anion GAP 10.1 8-16 BUN/Creatinine Ratio 10.5 10-20 Estimated GFR L 35 >=60 mL/min/1.7 History of procedures No procedures [...]
--- OUTSIDE RECORDS SUMMARY | 2018-07-26 14:29 | XMS REPORT ---
Author Author [facility] Medical Staff Organization [facility] [employer] [facility] Address [address] [place], [place] [address] Phone [phone] Care Team Providers Care Freight Car Cleaner [employer] System Name Role Phone FAN SALCEDO PP [phone] Summary purpose TRANSITION OF CARE AUTO GENERATION [...] Status Finding Observation Time Abdomen Appearance round :31 Abdomen non-tender :31 Cain no 70-64-421635:31 Urination normal :31 Quality sym/unlabored :31 Cough absent :31 Secretions no :31 Airway natural :31 Chest Tube no :31 Oxygen no :10 Temp >100.4 no : Temp <96.8 no :31 Chills with rigors no :31 HR > 90bpm no :31 Respirations > 20 no :31 Systolic <90 no :31 headache stiff neck no :31 WBC > 43309 no :15 Nursing Note Pt exited ER with discharge instructions in personal power wheelchair in good condition. :21 Vital signs Type Value Date Respiration Rate 18breaths per minute :10 Pulse 94beats per minute :10 Oxygen Saturation 98% :10 BP Systolic 156mmHg :10 BP Diastolic 90mmHg :10 Temperature 96.9F :10 [...]
--- OUTSIDE RECORDS SUMMARY | 2018-07-26 14:29 | XMS REPORT ---
Author Author [facility] Medical Staff Organization [facility] Address [address] [place], [place] [address] Phone [phone] Care Team Providers Care Novelty Maker Name Role Phone FAN SALCEDO PP [phone] Summary purpose TRANSITION OF CARE AUTO GENERATION Chief Complaint and Reason for Visit Admit Diagnosis 1 PERIPH VASCULAR DIS NOS Problem list No authorized problems tracked [...] diagnostic tests and/or laboratory data RESULTS Chemistry [id number]:29:00 Result Normal Range Units Sodium 138 134-145 mEq/l Potassium 4.1 3.5-5.1 mEq/l Chloride L 97 98-107 mEq/l CO2 H 32.4 22-28 mEq/l Glucose H 172 70-105 mg/dl BUN H 21 7-18 mg/dl Creatinine H 1.43 0.6-1.0 mg/dl Calcium 9.0 8.4-10.2 mg/dl Osmolality 282.7 280-300 mOsm/L Anion GAP 8.6 8-16 BUN/Creatinine Ratio 14.7 10-20 Estimated GFR L 40 >=60 mL/min/1.7 History of procedures Procedure Code Code Type Description Date Performed Performing Physician 09532 CPT-4 METABOLIC PANEL TOTAL CA 06-12-2015 FAN PAL Functional status No functional or [...]
--- OUTSIDE RECORDS SUMMARY | 2018-07-26 14:29 | XMS REPORT ---
Author Author [facility] Medical Staff Organization [facility] Address [address] [place], [place] [address] Phone [phone] Care Team Providers Care Turkey Egg Gatherer Name Role Phone FAN SALCEDO PP [phone] FAN SALCEDO PP [phone] Summary purpose TRANSITION OF CARE AUTO GENERATION Chief Complaint and Reason for Visit Admit Diagnosis 1 NAUSEA ALONE Problem list No authorized problems tracked for [...] Relevant diagnostic tests and/or laboratory data RESULTS Routine Urinalysis 19-62-051917:14:00 Result Normal Range Units Color YELLOW Clarity Turbid Specific Helena 1.025 1.003-1.035 pH 5.5 4.5-8.0 Glucose NEGATIVE Bilirubin NEGATIVE Ketones NEGATIVE Protein 2+ Urobilinogen 0.2 0-0.2 E.U./dL Nitrites POSITIVE Blood 3+ Leukocytes 2+ WBCs Too numerous to count RBCs 20-30 Squamous Epithelial Few Bacteria 2+ Blood Cultures 29-45-300149:25:00 Blood Culture Plate Date and Time 04/03/2015 02:33 SourceBLOOD CULTURE REPORT NoGrowth at 1 day. Unless otherwise notified. Final report in 5 Days. Release Date/Time: 04/04/2015 07:37 CULTURE REPORT No growth in 5 days. Release Date/Time: 04/08/2015 07:37 Routine Cultures [id number]:22:00 Urine Culture Plate Date and Time 04/03/2015 03:22 SourceURINE CULTURE REPORT >100,000 colonies/ml Gram Negative Rods ID & Sensitivity to follow Release Date/Time: 04/04/2015 07:38 ORGID #1:>100,000 colonies/ml ESCHERICHIA COLI Release Date/Time: 04/05/2015 07:14 Sensitivity #1: ESCCOL AMPICILLIN <=8S AMOX CLAV<=8/4 S AZTREONAM<=8S CEFTRIAXONE<=8S CEFTAZIDIME<=1S CEFOTAXIME <=2S CEFOXITIN<=8S CEFAZOLIN<=8S CIPROFLOXACIN<=1S CEFEPIME <=8S CEFUROXIME <=4S ERTAPENEM<=2S NITROFURANTOIN <=32 S GENTAMICIN <=4S AMPICILLIN SULBACTAM <=8/4 S IMIPENEM <=4S LEVOFLOXACIN <=2S MEROPENEM<=4S TRIMETHSULFA <=2/38S TETRACYCLINE <=4S PIPTAZO<=16 S Chemistry 36-01-173797:25:00 Result Normal Range Units Lactic Acid 1.5 0.4-2.0 mmol/L 93-03-991595:50:00 Result Normal Range Units Sodium 137 134-145 mEq/l Potassium 4.0 3.5-5.1 mEq/l Chloride 99 98-107 mEq/l CO2 25.3 22-28 mEq/l Glucose H 206 70-105 mg/dl BUN H 23 7-18 mg/dl Creatinine H 1.38 0.6-1.0 mg/dl Calcium 9.2 8.4-10.2 mg/dl TP - Total Protein 7.6 6.0-8.3 g/dl Albumin 3.6 3.5-5 g/dl Bilirubin - Total 0.4 0.1-1.0 mg/dl AST 13 10-42 IU/L ALT 20 12-65 IU/L ALP H 122 25-72 IU/L Osmolality 283.5 280-300 mOsm/L Albumin/Globulin Ratio 0.9 0-8 Anion GAP 12.7 8-16 BUN/Creatinine Ratio 16.7 10-20 BNP- Brain Natriuretic Peptide H 503 0-450 pg/ml Estimated GFR L 42 >=60 mL/min/1.7 Hematology 71-28-757906:25:00 Result Normal Range Units Segs H 84.0 40-70 % Bands 4.0 0-5 % Lymphs L 10.0 20-40 % Harlan 2.0 0-10 % 03-86-215194:50:00 Result Normal Range Units WBC H 20.4 4.8-10.8 103/uL RBC L 3.8 4.2-5.4 106/uL HGB 12.5 12.0-16.0 g/dl HCT L 35.3 36.9-47.0 % MCV 91.9 81-99 FL MCH H 32.6 27-31 pg MCHC 35.4 33-37 g/dl RDW 12.9 11.5-15.5 % PLT 282 130-400 103/uL MPV 10.0 7.3-10.4 FL Body Fluid 09-54-543696:14:00 Result Normal Range Units pH 5.5 4.5-8.0 Cardiac 16-41-329828:50:00 Result Normal Range Units CK 52 26-192 IU/L CKMB 1.1 0-3.6 ng/ml Patient samples may contain heterophilic antibodies that could react with immunoassays to give falsely elevated or depressed results. This Dimension assay has been designed to minimize interference from heterophilic antibodies. Nevertheless, complete elimination of this interference from all patient specimens cannot be guaranteed. A test result that is inconsistent with the clinical picture and patient history should be interpreted with caution. Troponin I < 0.04 0.0-0.4 ng/ml Patient samples may contain heterophilic antibodies that could react in immunoassays to give falsely elevated or depressed results. This Dimension assay has been designed to minimize interference from heterophilic antibodies. Nevertheless, complete elimination of this interference from all patient specimens cannot be guaranteed. A test result that is inconsistent with the clinical picture and patient history should be interpreted with caution. Radiology Results [id number]:29:00 Chest XRay - Port - 1 View PACs Image DATE OF EXAM: 2014 RAD 0292-CHEST 1 VIEW PORT : RADIOLOGY REPORT DATE OF SERVICE: 04/03/15 HISTORY: Weakness, nausea, coronary artery surgery one month ago PORTABLE AP CHEST 0150 HOURS Comparison is made with 03/13/2015. There are changes of prior coronary artery surgery. Heart size and pulmonary vessels are normal. There is no pneumothorax or pleural effusion. Prominence of the upper mediastinal soft tissues is probably a combination of fatty infiltration and postoperative change. IMPRESSION: No acute abnormality. MD BRANDON Sultana/nh04/03/2015 08:02:00 / 04/03/2015 08:50:54 cc:Fan Brown PA-C This document has been electronically Signed by: On: DATE OF EXAM: 2014 RAD 0292-CHEST 1 VIEW PORT : RADIOLOGY REPORT DATE OF SERVICE: 04/03/15 HISTORY: Weakness, nausea, coronary artery surgery one month ago PORTABLE AP CHEST 0150 HOURS Comparison is made with 03/13/2015. There are changes of prior coronary artery surgery. Heart size and pulmonary vessels are normal. There is no pneumothorax or pleural effusion. Prominence of the upper mediastinal soft tissues is probably a combination of fatty infiltration and postoperative change. IMPRESSION: No acute abnormality. MD BRANDON Sultana/hi04/03/2015 08:02:00 / 04/03/2015 08:50:54 cc:Fan Brown PA-C This document has been electronically Signed by: LUISA RIVERA On: 2014 10:29A Result Amended on 2015-04-03 at 10:29:36. Previous status was MS. [id number]:50:00 Result Normal Range Units MPV 10.0 7.3-10.4 FL History of procedures Procedure Code Code Type Description Date Performed Performing Physician 54754 CPT-4 ROUTINE VENIPUNCTURE 04-03-2015 MARLENA WENTWORTH 99737 CPT-4 ROUTINE VENIPUNCTURE 04-03-2015 MARLENA WENTWORTH 87510 CPT-4 CHEST X-RAY 04-03-2015 MARLENA LUIS 81329 CPT-4 COMPREHEN METABOLIC PANEL 04-03-2015 MARLENA MIGUEL 61319 CPT-4 URINALYSIS, AUTO W/SCOPE 04-03-2015 MARLENA MIGUEL 67942 CPT-4 ASSAY OF CK (CPK) 04-03-2015 MARLENA MIGUEL 28814 CPT-4 CREATINE, MB FRACTION 04-03-2015 MARLENA MIGUEL 48639 CPT-4 ASSAY OF LACTIC ACID 04-03-2015 MARLENA WENTWORTH 71598 CPT-4 NATRIURETIC PEPTIDE 04-03-2015 MARLENA WENTWORTH 68760 CPT-4 ASSAY OF TROPONIN, QUANT 04-03-2015 MARLENA MIGUEL 14311 CPT-4 BL SMEAR W/DIFF WBC COUNT 04-03-2015 MARLENA MIGUEL 62330 CPT-4 COMPLETE CBC, AUTOMATED 04-03-2015 MARLENA MIGUEL 15450 CPT-4 BLOOD CULTURE FOR BACTERIA 04-03-2015 MARLENA LUSI 27696 CPT-4 CULTURE AEROBIC IDENTIFY 04-03-2015 MARLENA LUIS 76004 CPT-4 URINE CULTURE/COLONY COUNT 04-03-2015 MARLENA LUIS 89346 CPT-4 MICROBE SUSCEPTIBLE, THADDEUS 04-03-2015 MARLENA LUIS 74686 CPT-4 ELECTROCARDIOGRAM, TRACING 04-03-2015 MARLENA LUIS 53178 CPT-4 EMERGENCY DEPT VISIT 04-03-2015 MARLENA LUIS 84557 CPT-4 EMERGENCY DEPT VISIT 04-03-2015 MARLENA LUIS A9270 CPT-4 NON-COVERED ITEM OR SERVICE 04-03-2015 MARLENA LUIS A9270 CPT-4 NON-COVERED ITEM OR SERVICE 04-03-2015 MARLENA LUIS Functional status Functional Status Finding Observation Time Diet ADA specify calorie 41-08-751872:25 Abdomen Appearance round 06-93-279616:25 Abdomen non-tender 47-03-461899:25 Bowel Sounds present 96-39-653253:25 Urination normal 81-94-151719:25 Quality sym/unlabored 13-10-586035:25 Cough absent 31-60-812769:25 Secretions no :25 Breath Sounds RUL clear 35-69-667710:25 Breath Sounds RML clear 12-72-204620:25 Breath Sounds RLL clear 86-34-191331:25 Breath Sounds KAYCEE clear :25 Breath Sounds LLL clear 80-45-609894:25 Airway natural 61-97-783712:25 Oxygen no 37-43-135356:40 Temp >100.4 no :25 Temp <96.8 no :25 Chills with rigors no 35-16-584317:25 HR > 90bpm yes 93-91-550870:25 Respirations > 20 no 15-93-982826:25 Systolic <90 no 76-85-415054:25 headache stiff neck no :25 WBC > 97824 yes :25 Rapid Resp yes 91-39-089360:25 Nursing Note Dismissed home per Cortez Luis PA-C. Discharge instructions given and understood by pt and spouse who verbalized understanding. Wheeled to exit via w/c in stable condition. 61-07-369592:40 Vital signs Type Value Date Respiration Rate 18breaths per minute 04-53-184374:40 Pulse 113beats per minute :40 Oxygen Saturation 98% :40 BP Systolic 112mmHg 84-22-872964:40 BP Diastolic 67mmHg :40 Temperature 98.9F 72-70-400014:40 Social history Type Value Smoking Status CURRENT EVERY DAY SMOKER Treatment Plan No treatment plan text is available for this visit. Hospital discharge instructions Dismissal Condition good Disposition on DC home DC Inst/Educ Give yes Med/Side Effects Rev yes Flu Vac no
--- OUTSIDE RECORDS SUMMARY | 2018-07-26 14:29 | XMS REPORT ---
Author [facility] Medical Staff Organization [facility] Address [address], [place] [address] Phone [phone] Summary purpose TRANSITION OF CARE AUTO GENERATION [...]
--- OUTSIDE RECORDS SUMMARY | 2018-07-26 14:29 | XMS REPORT ---
Author Author KEATONAirside Mobile [facility] Medical Staff Organization [facility] [employer] [facility] Address [address], [place] [address] Phone [phone] Care Team Providers Care Thermoplastic Technician Name Role Phone FAN SALCEDO PP [phone] Summary purpose TRANSITION OF CARE AUTO GENERATION [...] tests and/or laboratory data RESULTS Radiology Results [id number]:23:00 CT LOW EXT W/CONT PACs Image DATE OF EXAM: Jun 14 2015 [id number] LOWER EXT W CONTRAST- RIGHT: RADIOLOGY REPORT DATE OF SERVICE: 06/14/15 HISTORY: Lower extremity pain/claudication, abnormal Doppler exam CT ANGIOGRAPHY OF THE ABDOMINAL AORTA WITH BILATERAL LOWER EXTREMITY CTA RUNOFF 1225 HOURS 125 mL Isovue-[address] was performed. Axial reconstructions were obtained. 3-D reconstructions were performed on the independent workstation. The abdominal aorta shows moderate atherosclerotic plaquing without high-grade stenosis. No areas of stenosis greater than 20% are evident in the infrarenal abdominal aorta. Note is made of several large right renal calculi. The right common iliac artery and external iliac artery show minimal plaque with no measurable stenosis. There is focal atherosclerotic stenosis of the right common femoral artery just distal to the inguinal ligament where there is a 40% stenosis. There is mild focal stenosis at the origin of the right superficial femoral artery measuring no greater than 40%. The mid and distal superficial femoral artery appear normal. There is mild stenosis in the right popliteal artery measuring 40%. The trifurcation is widely patent. The posterior tibial artery remains patent. It becomes attenuated at the level of the ankle. The peroneal artery terminates just above the level of the ankle. The anterior tibial artery shows gradual diffuse tapering and high-grade narrowing just distal to the ankle joint. In the left lower extremity, the left common iliac and left external iliac arteries are widely patent. There is mild plaquing in the left common femoral artery measuring no greater than 30%. The proximal and mid left superficial femoral artery are widely patent. There is minimal plaquing in the distal left superficial femoral artery and popliteal artery origin with no greater than 30% stenosis. The distal popliteal artery is patent. The trifurcation is patent. The left posterior tibial artery is patent throughout the leg, ankle, and foot region. The peroneal artery extends to the level of the ankle. The anterior tibial artery shows tapered narrowing that is fairly high-grade at the level of the ankle. IMPRESSION: 1. Focal mild stenoses involving the common femoral arteries, right popliteal artery, and distal left superficial femoral artery without high-grade stenosis in these regions. 2. Patent trifurcation vessels proximally. Gradual tapered narrowing of the distal anterior tibial arteries with poor visualization of the dorsalis pedis arteries. Distal stenosis of the right posterior tibial artery at the level of the ankle and hindfoot. Herb Bob MD MWJoão/or06/14/2015 13:50:00 / 06/14/2015 13:59:40 cc:Fan Brown PA-C This document has been electronically Signed by: On: DATE OF EXAM: Jun 14 2015 [id number] LOWER EXT W CONTRAST- RIGHT: RADIOLOGY REPORT DATE OF SERVICE: 06/14/15 HISTORY: Lower extremity pain/claudication, abnormal Doppler exam CT ANGIOGRAPHY OF THE ABDOMINAL AORTA WITH BILATERAL LOWER EXTREMITY CTA RUNOFF 1225 HOURS 125 mL Isovue-370 was administered. Helical mult[address] CT was performed. Axial reconstructions were obtained. 3-D reconstructions were performed on the independent workstation. The abdominal aorta shows moderate atherosclerotic plaquing without high-grade stenosis. No areas of stenosis greater than 20% are evident in the infrarenal abdominal aorta. Note is made of several large right renal calculi. The right common iliac artery and external iliac artery show minimal plaque with no measurable stenosis. There is focal atherosclerotic stenosis of the right common femoral artery just distal to the inguinal ligament where there is a 40% stenosis. There is mild focal stenosis at the origin of the right superficial femoral artery measuring no greater than 40%. The mid and distal superficial femoral artery appear normal. There is mild stenosis in the right popliteal artery measuring 40%. The trifurcation is widely patent. The posterior tibial artery remains patent. It becomes attenuated at the level of the ankle. The peroneal artery terminates just above the level of the ankle. The anterior tibial artery shows gradual diffuse tapering and high-grade narrowing just distal to the ankle joint. In the left lower extremity, the left common iliac and left external iliac arteries are widely patent. There is mild plaquing in the left common femoral artery measuring no greater than 30%. The proximal and mid left superficial femoral artery are widely patent. There is minimal plaquing in the distal left superficial femoral artery and popliteal artery origin with no greater than 30% stenosis. The distal popliteal artery is patent. The trifurcation is patent. The left posterior tibial artery is patent throughout the leg, ankle, and foot region. The peroneal artery extends to the level of the ankle. The anterior tibial artery shows tapered narrowing that is fairly high-grade at the level of the ankle. IMPRESSION: 1. Focal mild stenoses involving the common femoral arteries, right popliteal artery, and distal left superficial femoral artery without high-grade stenosis in these regions. 2. Patent trifurcation vessels proximally. Gradual tapered narrowing of the distal anterior tibial arteries with poor visualization of the dorsalis pedis arteries. Distal stenosis of the right posterior tibial artery at the level of the ankle and hindfoot. Herb Bob MD MWJoão/or06/14/2015 13:50:00 / 06/14/2015 13:59:40 cc:Fan Brown PA-C This document has been electronically Signed by: HERB BOB On: Jun 14 20152:23P Result Amended on 2015-06-14 at 14:23:17. Previous status was [place]. History of procedures Procedure Code Code Type Description Date Performed Performing Physician Q9967 CPT-4 LOCM 300-399MG/ML IODINE,1ML 06-14-2015 FAN BROWN 22102 CPT-4 CT LOWER EXTREMITY W/DYE 06-14-2015 FAN BROWN Functional status No functional or [...]
--- OUTSIDE RECORDS SUMMARY | 2018-07-26 14:29 | XMS REPORT ---
Author Author [facility] Medical Staff Organization [facility] Address [address], [place] [address] Phone [phone] Care Team Providers Care Tack Coverer Name Role Phone FAN SALCEDO PP [phone] Summary purpose TRANSITION OF CARE AUTO GENERATION [...] diagnostic tests and/or laboratory data RESULTS Chemistry 29-81-919869:16:00 Result Normal Range Units Sodium 138 134-145 mEq/l Potassium 4.5 3.5-5.1 mEq/l Chloride 102 98-107 mEq/l CO2 H 29.7 22-28 mEq/l Glucose H 140 70-105 mg/dl BUN H 22 7-18 mg/dl Creatinine 0.97 0.6-1.0 mg/dl Calcium 8.9 8.4-10.2 mg/dl Magnesium L 1.4 1.7-2.8 mg/dl Osmolality 281.3 280-300 mOsm/L Anion GAP L 6.3 8-16 BUN/Creatinine Ratio H 22.7 10-20 Estimated GFR 62 >=60 mL/min/1.7 History of procedures Procedure Code Code Type Description Date Performed Performing Physician 91081 CPT-4 METABOLIC PANEL TOTAL CA 02-28-2016 FAN PAL 81298 CPT-4 ASSAY OF MAGNESIUM 02-28-2016 FAN PAL Functional status No functional or [...]
--- OUTSIDE RECORDS SUMMARY | 2018-07-26 14:30 | XMS REPORT ---
Author Author [facility] Medical Staff Organization [facility] Address [address], [place] [address] Phone [phone] Care Team Providers Care Parish Worker Name Role Phone FAN SALCEDO PP [phone] Summary purpose TRANSITION OF CARE AUTO GENERATION [...] Code Type Description Date Performed Performing Physician 95366 CPT-4 PT EVALUATION 10-02-2015 FAN PAL 95290 CPT-4 THERAPEUTIC EXERCISES 10-15-2015 FAN PAL 66464 CPT-4 THERAPEUTIC EXERCISES 10-17-2015 FAN PAL Functional [...]
--- OUTSIDE RECORDS SUMMARY | 2018-07-26 14:30 | XMS REPORT ---
Author Author [facility] [employer] [facility] Medical Staff Organization [facility] Address [address] [place], [place] [address] Phone [phone] Care Team Providers Care Java Tech Name Role Phone FAN SALCEDO PP [phone] Summary purpose TRANSITION OF CARE AUTO GENERATION [...] tests and/or laboratory data RESULTS Radiology Results 12-64-338330:40:00 Bilateral Screen Digital Mammo DATE OF EXAM: 2015 [facility] 0845-BILAT SCREEN DIG MAMMO : RADIOLOGY REPORT ADDENDED REPORT: DATE OF SERVICE: 02/05/16 HISTORY: Screening exam BILATERAL DIGITAL SCREENING MAMMOGRAM 1350 HOURS There are fatty involutional changes. There are no masses or microcalculi. Benign calcifications are present. There is no distortion or asymmetry. IMPRESSION: Negative mammograms BI-RADS I. MD BRANDON Sultana/ok02/05/2016 14:30:00 / 02/05/2016 14:58:12 cc:Dr. Star Howell This document has been electronically Signed by: LUISA RIVERA MD On: Feb 14 20164:40P History of procedures Procedure Code Code Type Description Date Performed Performing Physician 62015 CPT-4 MAMMOGRAM, SCREENING 02-05-2016 FAN PAL 89644 CPT-4 COMP SCREEN MAMMOGRAM ADD-ON 02-05-2016 FAN PAL Functional status No functional or [...]
--- OUTSIDE RECORDS SUMMARY | 2018-07-26 14:30 | XMS REPORT ---
Author Author [facility] Medical [facility] Organization [facility] Address [address], [place] [address] Phone [phone] Care Team Providers Care Engineer Station Mainline Name Role Phone FAN SALCEDO PP [phone] Summary purpose TRANSITION OF CARE AUTO GENERATION Chief Complaint and Reason for Visit Admit Diagnosis 1 VOMITING ALONE Problem list No authorized problems tracked [...] tests and/or laboratory data RESULTS Routine Urinalysis 72-50-583549:45:00 Result Normal Range Units Color YELLOW Clarity Cloudy Specific [place] 1.015 1.003-1.035 pH 6.0 4.5-8.0 Glucose NEGATIVE Bilirubin 1+ Ketones TRACE Protein 2+ Urobilinogen H 1.0 0-0.2 E.U./dL Nitrites NEGATIVE Blood 2+ Leukocytes 3+ WBCs Too numerous to count RBCs 20-30 Squamous Epithelial 1+ Amorphous Crystals 1+ Bacteria 4+ Routine Cultures 28-82-695882:45:00 Urine Culture Plate Date and Time 05/17/2015 23:03 SourceURINE CULTURE REPORT >100,000 colonies/ml Gram Negative Rods ID & Sensitivity to follow Release Date/Time: 05/18/2015 07:16 ORGID #1:>100,000 colonies/ml ESCHERICHIA COLI Release Date/Time: 05/19/2015 07:57 Sensitivity #1: ESCCOL AMPICILLIN <=8S AMOX CLAV<=8/4 S AZTREONAM<=8S CEFTRIAXONE<=8S CEFTAZIDIME<=1S CEFOTAXIME <=2S CEFOXITIN<=8S CEFAZOLIN<=8S CIPROFLOXACIN<=1S CEFEPIME <=8S CEFUROXIME <=4S ERTAPENEM<=2S NITROFURANTOIN <=32 S GENTAMICIN <=4S AMPICILLIN SULBACTAM <=8/4 S IMIPENEM <=4S LEVOFLOXACIN <=2S MEROPENEM<=4S TRIMETHSULFA <=2/38S TETRACYCLINE <=4S PIPTAZO<=16 S Chemistry :45:00 Result Normal Range Units Sodium 136 134-145 mEq/l Potassium L 3.2 3.5-5.1 mEq/l Chloride L 95 98-107 mEq/l CO2 27.1 22-28 mEq/l Glucose H 151 70-105 mg/dl BUN 16 7-18 mg/dl Creatinine H 1.53 0.6-1.0 mg/dl Calcium 8.5 8.4-10.2 mg/dl TP - Total Protein 7.9 6.0-8.3 g/dl Albumin L 3.2 3.5-5 g/dl Bilirubin - Total 0.6 0.1-1.0 mg/dl AST 21 10-42 IU/L ALT 30 12-65 IU/L ALP H 133 25-72 IU/L Osmolality L 276.1 280-300 mOsm/L Albumin/Globulin Ratio 0.7 0-8 Anion GAP 13.9 8-16 BUN/Creatinine Ratio 10.5 10-20 Estimated GFR L 37 >=60 mL/min/1.7 Hematology :45:00 Result Normal Range Units WBC H 16.1 4.8-10.8 103/uL RBC L 3.7 4.2-5.4 106/uL HGB L 11.7 12.0-16.0 g/dl HCT L 34.1 36.9-47.0 % MCV 92.7 81-99 FL MCH H 31.8 27-31 pg MCHC 34.3 33-37 g/dl RDW 12.3 11.5-15.5 % PLT 196 130-400 103/uL MPV H 10.6 7.3-10.4 FL Neutro % H 78.4 40-70 % Lymph % L 11.3 20-40 % Sheridan % 9.6 0-10.0 % Eos % 0.1 0-7.0 % Baso % 0.1 0-2 % Neutro # H 12.6 1.5-7.5 103/uL Lymph # 1.8 0.9-4.0 103/uL Sheridan # H 1.5 0-0.8 103/uL Eos # 0.0 0-0.6 103/uL Baso # 0.0 0-0.1 103/uL Body Fluid :45:00 Result Normal Range Units pH 6.0 4.5-8.0 Radiology Results :45:00 Result Normal Range Units MPV H 10.6 7.3-10.4 FL History of procedures Procedure Code Code Type Description Date Performed Performing Physician 56335 CPT-4 COMPLETE CBC W/AUTO DIFF WBC 05-17-2015 MARLENA RIVERA 59281 CPT-4 COMPREHEN METABOLIC PANEL 05-17-2015 MARLENA RIVERA 20183 CPT-4 URINALYSIS, AUTO W/SCOPE 05-17-2015 MARLENA RIVERA 09640 CPT-4 URINE CULTURE/COLONY COUNT 05-17-2015 MARLENA RIVERA 96459 CPT-4 ROUTINE VENIPUNCTURE 05-17-2015 MARLENA RIVERA J7030 CPT-4 NORMAL SALINE SOLUTION INFUS 05-17-2015 MARLENA RIVERA A9270 CPT-4 NON-COVERED ITEM OR SERVICE 05-17-2015 MARLENA RIVERA 72605 CPT-4 CULTURE AEROBIC IDENTIFY 05-17-2015 MARLENA RIVERA 17271 CPT-4 MICROBE SUSCEPTIBLE, THADDEUS 05-17-2015 MARLENA RIVERA 03911 CPT-4 EMERGENCY DEPT VISIT 05-17-2015 MARLENA RIVERA 29880 CPT-4 EMERGENCY DEPT VISIT 05-17-2015 MARLENA RIVERA Functional status Functional Status Finding Observation Time Diet ADA specify calorie 31-54-667109:18 Abdomen Appearance round :18 Abdomen non-tender :18 Bowel Sounds present :18 Urination normal :18 Quality sym/unlabored :18 Cough absent :18 Secretions no :18 Breath Sounds RUL clear :18 Breath Sounds RML clear :18 Breath Sounds RLL clear :18 Breath Sounds KAYCEE clear :18 Breath Sounds LLL clear :18 Airway natural :18 Oxygen no :45 Oxygen Flow Rate RA :45 Temp >100.4 no : Temp <96.8 no : Chills with rigors no : HR > 90bpm no :18 Respirations > 20 no : Systolic <90 no : headache stiff neck no :18 IV Site Location RAC :10 IV Type peripheral :10 IV Site Information discontinued :45 IV Site Start Attmpt 1 times :10 IV Site Benedict 22 :10 IV Site Appearance WNL :10 IV Site Color clear :45 IV Site Patent yes :10 Dressing Type occlusive :10 Nursing Note dc inst discussed with pt. dcd to home in good condition with script :50 Vital signs Type Value Date Respiration Rate 18breaths per minute :45 Pulse 111beats per minute :45 Oxygen Saturation 98% :45 BP Systolic 138mmHg :45 BP Diastolic 77mmHg :45 Temperature 98.9F :45 Social history Type Value Smoking Status CURRENT EVERY DAY SMOKER Treatment Plan No treatment plan text is available for this visit. Hospital discharge instructions Dismissal Condition good Disposition on DC home DC Inst/Educ Give yes Med/Side Effects Rev yes Flu Vac no
--- OUTSIDE RECORDS SUMMARY | 2018-07-26 14:30 | XMS REPORT ---
Author Author [facility] Medical Staff Organization [facility] [employer] [facility] Address [address] [place], [place] [address] Phone [phone] Care Team Providers Care Welding Lead Burner Name Role Phone FAN SALCEDO PP [phone] Summary purpose TRANSITION OF CARE AUTO GENERATION [...] tests and/or laboratory data RESULTS Radiology Results [id number]:13:00 Chest X-Ray - 2 View PACs Image DATE OF EXAM: Mar 13 2015 RAD 0300-CHEST XRAY 2 VIEW : RADIOLOGY REPORT DATE OF SERVICE: 03/13/15 HISTORY: Patient has shortness of breath. CHEST 2 VIEWS 1420 HOURS Patient has undergone coronary artery bypass surgery. The heart size is upper normal. The lungs are clear and vascularity is normal. There is no effusion. IMPRESSION: Negative study of the chest. DO SABRINA Ward/lisa 03/13/2015 15:19:03/13/2015 15:25:02 cc:Fan Brown PA-C This document has been electronically Signed by: On: DATE OF EXAM: Mar 13 2015 RAD 0300-CHEST XRAY 2 VIEW : RADIOLOGY REPORT DATE OF SERVICE: 03/13/15 HISTORY: Patient has shortness of breath. CHEST 2 VIEWS 1420 HOURS Patient has undergone coronary artery bypass surgery. The heart size is upper normal. The lungs are clear and vascularity is normal. There is no effusion. IMPRESSION: Negative study of the chest. DO SABRINA Ward/lisa 03/13/2015 15:19:00 / 03/13/2015 15:25:02 cc:Fan Brown PA-C This document has been electronically Signed by: MARLENA MCKEON DO On: March 13:13P Result Amended on 2015-03-13 at 16:14:15. Previous status was [place]. History of procedures No procedures recorded for [...]
--- OUTSIDE RECORDS SUMMARY | 2018-07-26 14:30 | XMS REPORT ---
Author Author [facility] Medical Staff Organization [facility] Address [address], [place] [address] Phone [phone] Care Team Providers Care Machine Former Name Role Phone FAN SALCEDO PP [phone] Summary purpose TRANSITION OF CARE AUTO GENERATION [...]
--- OUTSIDE RECORDS SUMMARY | 2018-07-26 14:30 | XMS REPORT ---
Author Author [facility] Medical Staff Organization [facility] Address [address] [place], [place] [address] Phone [phone] Care Team Providers Care Abstract Checker Name Role Phone FAN SALCEDO PP [phone] Summary purpose TRANSITION OF CARE AUTO GENERATION [...]
--- OUTSIDE RECORDS SUMMARY | 2018-07-26 14:30 | XMS REPORT ---
Author Author [employer] [facility] [employer] [facility] Medical Staff Organization [facility] Address [address], [place] [address] Phone [phone] Summary purpose TRANSITION OF CARE AUTO GENERATION [...]
--- OUTSIDE RECORDS SUMMARY | 2018-07-26 14:30 | XMS REPORT ---
Author Author [facility] Medical Staff Organization [facility] Address [address] [place], [place] [address] Phone [phone] Summary purpose TRANSITION OF CARE AUTO GENERATION [...] tests and/or laboratory data RESULTS Radiology Results [id number]:03:00 DUP ILA UNILATERAL PACs Image DATE OF EXAM: Feb 18 2016 [id number] VENOUS DUPLEX-UNILATERAL- RIGHT: RADIOLOGY REPORT DATE OF [...] bilateral lower extremity venous Doppler. MD BRANDON Sultana/wv02/18/2016 14:30:00 / 02/18/2016 14:54:03 cc:Fan Brown PA-C This document has been electronically Signed by: On: DATE OF EXAM: Feb 18 2016 [id number] VENOUS DUPLEX-UNILATERAL- RIGHT: RADIOLOGY REPORT DATE OF [...] Bob MD MWD/nh02/18/2016 14:30:00 / 02/18/2016 14:54:03 cc:Fan Brown PA-C This document has been electronically Signed by: HERB BOB MD On: Feb 18 20164:03P Result Amended on 2016-02-18 at 16:03:17. Previous status was [place]. History of procedures Procedure Code Code Type Description Date Performed Performing Physician 02294 CPT-4 EXTREMITY STUDY 02-18-2016 FAN BROWN Functional status No functional or [...]
--- OUTSIDE RECORDS SUMMARY | 2018-07-26 14:30 | XMS REPORT ---
Author Author [facility] Medical Staff Organization [facility] Address [address] [place], [place] [address] Phone [phone] Care Team Providers Care Drapery Cutter Name Role Phone FAN SALCEDO PP [phone] FAN SALCEDO PP [phone] Summary purpose TRANSITION OF CARE AUTO GENERATION [...] tests and/or laboratory data RESULTS Routine Urinalysis [id number]:14:00 Result Normal Range Units Color YELLOW Clarity Turbid Specific [place] 1.025 1.003-1.035 pH 5.5 4.5-8.0 Glucose NEGATIVE Bilirubin NEGATIVE Ketones NEGATIVE Protein 2+ Urobilinogen 0.2 0-0.2 E.U./dL Nitrites POSITIVE Blood 3+ Leukocytes 2+ WBCs Too numerous to count RBCs 20-30 Squamous Epithelial Few Bacteria 2+ Chemistry [id number]:25:00 Result Normal Range Units Lactic Acid 1.5 0.4-2.0 mmol/L 48-55-841808:50:00 Result Normal Range Units Sodium 137 134-145 [...] Estimated GFR L 42 >=60 mL/min/1.7 Hematology 38-82-481488:25:00 Result Normal Range Units Segs H 84.0 40-70 % Bands 4.0 0-5 % Lymphs L 10.0 20-40 % Giles 2.0 0-10 % 70-54-035140:50:00 Result Normal Range Units WBC H 20.4 4.8-10.8 103/uL RBC L 3.8 4.2-5.4 106/uL HGB 12.5 12.0-16.0 g/dl HCT L 35.3 36.9-47.0 % MCV 91.9 81-99 FL MCH H 32.6 27-31 pg MCHC 35.4 33-37 g/dl RDW 12.9 11.5-15.5 % PLT 282 130-400 103/uL MPV 10.0 7.3-10.4 FL Body Fluid 35-80-074321:14:00 Result Normal Range Units pH 5.5 4.5-8.0 Cardiac [id number]:50:00 Result Normal Range Units CK 52 26-192 [...] should be interpreted with caution. Radiology Results [id number]:29:00 Chest XRay - Port - 1 View [...] change. IMPRESSION: No acute abnormality. MD BRANDON Sultana/sc04/03/2015 08:02:00 / 04/03/2015 08:50:54 cc:Fan Brown PA-C [...] change. IMPRESSION: No acute abnormality. MD BRANDON Sultana/lisa04/03/2015 08:02: / 04/03/2015 08:50:54 cc:Fan Brown PA-C This document has been electronically Signed by: LUISA RIVERA On: 2014 10:29A Result Amended on 2015-04-03 at 10:29:36. Previous status was [place]. [id number]:50:00 Result Normal Range Units MPV 10.0 7.3-10.4 FL History of procedures No procedures recorded for this patient visit. Functional status Functional Status Finding Observation Time Diet ADA specify calorie 69-80-645926:25 Abdomen Appearance round 26-59-145747:25 Abdomen non-tender 03-53-277248:25 Bowel Sounds present 43-62-001814:25 Urination normal 81-15-055531:25 Quality sym/unlabored :25 Cough absent :25 Secretions no :25 Breath Sounds RUL clear :25 Breath Sounds RML clear :25 Breath Sounds RLL clear :25 Breath Sounds KAYCEE clear :25 Breath Sounds LLL clear :25 Airway natural :25 Oxygen no :40 Temp >100.4 no :25 Temp <96.8 no :25 Chills with rigors no : HR > 90bpm yes :25 Respirations > 20 no :25 Systolic <90 no :25 headache stiff neck no :25 WBC > 75828 yes :25 Rapid Resp yes :25 Nursing Note Dismissed home per Cortez Luis PA-C. Discharge instructions given and understood by pt and spouse who verbalized understanding. Wheeled to exit via w/c in stable condition. :40 Vital signs Type Value Date Respiration Rate 18breaths per minute :40 Pulse 113beats per minute :40 Oxygen Saturation 98% :40 BP Systolic 112mmHg :40 BP Diastolic 67mmHg 48-30-097010:40 Temperature 98.9F 25-22-306041:40 Social history Type Value Smoking Status CURRENT EVERY DAY SMOKER Treatment Plan No treatment plan text is available for this visit. Hospital discharge instructions Dismissal Condition good Disposition on DC home DC Inst/Educ Give yes Med/Side Effects Rev yes Flu Vac no
--- OUTSIDE RECORDS SUMMARY | 2018-07-26 14:30 | XMS REPORT ---
Author Author [facility] Medical Staff Organization [facility] Address [address] [place], [place] [address] Phone [phone] Care Team Providers Care Flight Superintendent Name Role Phone FAN SALCEDO PP [phone] Summary purpose TRANSITION OF CARE AUTO GENERATION [...] diagnostic tests and/or laboratory data RESULTS Chemistry [id number]:39:00 Result Normal Range Units Magnesium L 1.5 1.7-2.8 mg/dl History of procedures Procedure Code Code Type Description Date Performed Performing Physician 38995 CPT-4 ASSAY OF MAGNESIUM 02-17-2016 FAN PLA Functional status No functional or cognitive status [...]
--- OUTSIDE RECORDS SUMMARY | 2018-07-26 14:30 | XMS REPORT ---
Author Author [facility] Medical Staff Organization [facility] Address [address] [place], [place] [address] Phone [phone] Care Team Providers Care Drywall Foreman Name Role Phone FAN SALCEDO PP [phone] Summary purpose TRANSITION OF CARE AUTO GENERATION [...]
--- OUTSIDE RECORDS SUMMARY | 2018-07-26 14:31 | XMS REPORT ---
Author Author [facility] Medical Staff Organization [facility] Address [address], [place] [address] Phone [phone] Care Team Providers Care Retail Salesperson Name Role Phone FAN SALCEDO PP [phone] Summary purpose TRANSITION OF CARE AUTO GENERATION [...] diagnostic tests and/or laboratory data RESULTS Chemistry [id number]:58:00 Result Normal Range Units Sodium 137 134-145 mEq/l Potassium 4.0 3.5-5.1 mEq/l Chloride L 97 98-107 mEq/l CO2 H 31.8 22-28 mEq/l Glucose H 200 70-105 mg/dl BUN H 19 7-18 mg/dl Creatinine H 1.09 0.6-1.0 mg/dl Calcium 9.1 8.4-10.2 mg/dl Magnesium L 1.1 1.7-2.8 mg/dl Osmolality 281.7 280-300 mOsm/L Anion GAP 8.2 8-16 BUN/Creatinine Ratio 17.4 10-20 Estimated GFR L 55 >=60 mL/min/1.7 Special Chemistry [id number]:58:00 Result Normal Range Units Hemoglobin A1C H 7.5 4.5-6.2 % History of procedures Procedure Code Code Type Description Date Performed Performing Physician 59874 CPT-4 METABOLIC PANEL TOTAL CA 05-06-2016 FAN PAL 83319 CPT-4 GLYCOSYLATED HEMOGLOBIN TEST 05-06-2016 FAN PAL 06266 CPT-4 ASSAY OF MAGNESIUM 05-06-2016 FAN PAL Functional status No functional or [...]
--- OUTSIDE RECORDS SUMMARY | 2018-07-26 14:31 | XMS REPORT ---
Author Author [facility] Medical Staff Organization [facility] Address [address] [place], [place] [address] Phone [phone] Summary purpose TRANSITION OF CARE AUTO GENERATION [...] diagnostic tests and/or laboratory data RESULTS Chemistry [id number]:40:00 Result Normal Range Units Sodium 136 134-145 mEq/l Potassium 4.0 3.5-5.1 mEq/l Chloride L 96 98-107 mEq/l CO2 27.6 22-28 mEq/l Glucose H 195 70-105 mg/dl BUN H 20 7-18 mg/dl Creatinine H 1.48 0.6-1.0 mg/dl Calcium 9.4 8.4-10.2 mg/dl Osmolality L 279.9 280-300 mOsm/L Anion GAP 12.4 8-16 BUN/Creatinine Ratio 13.5 10-20 Estimated GFR L 38 >=60 mL/min/1.7 History of procedures No procedures [...]
--- OUTSIDE RECORDS SUMMARY | 2018-07-26 14:31 | XMS REPORT ---
Author Author [facility] Medical Staff Organization [facility] Address [address] [place], [place] [address] Phone [phone] Care Team Providers Care Hospital Medical Assistant Name Role Phone FAN SALCEDO PP [phone] Summary purpose TRANSITION OF CARE AUTO GENERATION [...] 1.0 0.8-1.2 APTT 26.2 22-35.4 Seconds Chemistry [id number]:00:00 Result Normal Range Units Sodium 136 134-145 [...] H 10.6 7.3-10.4 FL Reference Lab (Sendout) :00:00 Result Normal Range Units D-Dimer 126 0-400 ng/ml Radiology Results :00:00 Result Normal Range Units MPV H 10.6 7.3-10.4 FL History of procedures No procedures recorded for this patient visit. Functional status Functional Status Finding Observation Time Abdomen Appearance round :30 Abdomen non-tender :30 Cain no :30 Urination normal :30 Quality sym/unlabored : Cough absent :30 Secretions no :30 Airway natural :30 Chest Tube no :30 Oxygen no :08 Temp >100.4 no : Temp <96.8 no [...] Value Date Respiration Rate 18breaths per minute :08 Pulse 103beats per minute :08 Oxygen Saturation 94% :08 BP Systolic 126mmHg :08 BP Diastolic 70mmHg :08 Temperature 97.1F :08 Social history Type Value Smoking Status CURRENT EVERY DAY SMOKER Treatment Plan No treatment plan text is available for this visit. Hospital discharge instructions Dismissal Condition good Disposition on DC home DC Inst/Educ Give yes Med/Side Effects Rev yes Flu Vac no
--- OUTSIDE RECORDS SUMMARY | 2018-07-26 14:31 | XMS REPORT ---
Author Author [facility] Medical Staff Organization [facility] Address [address], [place] [address] Phone [phone] Care Team Providers Care Monitor Car Operator Name Role Phone FAN SALCEDO PP [phone] Summary purpose TRANSITION OF CARE AUTO GENERATION [...]
--- OUTSIDE RECORDS SUMMARY | 2018-07-26 14:31 | XMS REPORT ---
Author Author [facility] Medical Staff Organization [facility] Address [address] [place], [place] [address] Phone [phone] Care Team Providers Care Medical Terminologist Name Role Phone FAN SALCEDO PP [phone] Summary purpose TRANSITION OF CARE AUTO GENERATION [...] tests and/or laboratory data RESULTS Radiology Results [id number]:23:00 CT LOW EXT W/CONT PACs Image DATE OF EXAM: Jun 14 2015 [id number] LOWER EXT W CONTRAST- RIGHT: RADIOLOGY REPORT [...] the ankle and hindfoot. Herb Bob MD MWD/nv06/14/2015 13:50:00 / 06/14/2015 13:59:40 cc:Fan Brown PA-C This document has been electronically Signed by: On: DATE OF EXAM: Jun 14 2015 [id number] LOWER EXT W CONTRAST- RIGHT: RADIOLOGY REPORT [...] the ankle and hindfoot. Herb Bob MD MWD/nh06/14/2015 13:50:00 / 06/14/2015 13:59:40 cc:Fan Brown PA-C This document has been electronically Signed by: HERB BOB On: Jun 14 20152:23P Result Amended on 2015-06-14 at 14:23:17. Previous status was [place]. History of procedures No procedures recorded for [...]
--- OUTSIDE RECORDS SUMMARY | 2018-07-26 14:31 | XMS REPORT ---
Author Author [facility] [employer] [facility] Medical Staff Organization [facility] Address [address] [place], [place] [address] Phone [phone] Summary purpose TRANSITION OF CARE AUTO GENERATION [...] tests and/or laboratory data RESULTS Radiology Results [id number]:06:00 Bilateral Screen Digital Mammo PACs Image DATE OF EXAM: 2015 [facility] 0845-BILAT SCREEN DIG MAMMO : RADIOLOGY REPORT DATE OF SERVICE: 02/05/16 HISTORY: Screening exam BILATERAL DIGITAL SCREENING MAMMOGRAM WITH iCAD SecondLook 7.2-H+ 1350 HOURS There are fatty involutional changes. There are no masses or microcalculi. Benign calcifications are present. There is no distortion or asymmetry. IMPRESSION: Negative mammograms BI-RADS I. Herb Bob MD MWJoão/ar02/05/2016 14:30:00 / 02/05/2016 14:58:12 cc:Dr. Star Howell This document has been electronically Signed by: On: History of procedures No procedures recorded for [...]
--- OUTSIDE RECORDS SUMMARY | 2018-07-26 14:31 | XMS REPORT ---
Author Author [facility] [facility] Medical Staff Organization [facility] Address [address] [place], [place] [address] Phone [phone] Care Team Providers Care Clerical Grader Name Role Phone FAN SALCEDO PP [phone] Summary purpose TRANSITION OF CARE AUTO GENERATION Chief Complaint and Reason for Visit Admit Diagnosis 1 SHORTNESS OF BREATH Problem list No authorized problems tracked for [...] tests and/or laboratory data RESULTS Radiology Results [id number]:13:00 Chest X-Ray - 2 View PACs Image [...] IMPRESSION: Negative study of the chest. DO Marilou Ward 03/13/2015 15:19:00 / 03/13/2015 15:25:02 cc:Fan Brown PA-C This document has been electronically Signed by: MARLENA MCKEON DO On: March 13:13P Result Amended on 2015-03-13 at 16:14:15. Previous status was [place]. History of procedures Procedure Code Code Type Description Date Performed Performing Physician 00540 CPT-4 CHEST X-RAY 03-13-2015 GILBERT SYLVESTER Functional status No functional or cognitive status [...]
--- OUTSIDE RECORDS SUMMARY | 2018-07-26 14:31 | XMS REPORT ---
Author Author [facility] [employer] [facility] Medical Staff Organization [facility] Address [address] [place], [place] [address] Phone [phone] Summary purpose TRANSITION OF CARE AUTO GENERATION [...] diagnostic tests and/or laboratory data RESULTS Chemistry [id number]:44:00 Result Normal Range Units Sodium 139 134-145 mEq/l Potassium 4.4 3.5-5.1 mEq/l Chloride 98 98-107 mEq/l CO2 H 30.4 22-28 mEq/l Glucose H 163 70-105 mg/dl BUN 16 7-18 mg/dl Creatinine H 1.04 0.6-1.0 mg/dl Calcium 9.1 8.4-10.2 mg/dl TP - Total Protein 7.4 6.0-8.3 g/dl Albumin 3.9 3.5-5 g/dl Bilirubin - Total 0.3 0.1-1.0 mg/dl AST 12 10-42 IU/L ALT 23 12-65 IU/L ALP H 145 25-72 IU/L Osmolality 282.3 280-300 mOsm/L Albumin/Globulin Ratio 1.1 0-8 Anion GAP 10.6 8-16 BUN/Creatinine Ratio 15.4 10-20 BNP- Brain Natriuretic Peptide 280 0-450 pg/ml Estimated GFR L 58 >=60 mL/min/1.7 Hematology [id number]:44:00 Result Normal Range Units WBC H 14.5 4.8-10.8 103/uL RBC 4.4 4.2-5.4 106/uL HGB 13.8 12.0-16.0 g/dl HCT 41.7 36.9-47.0 % MCV 95.6 81-99 FL MCH H 31.7 27-31 pg MCHC 33.1 33-37 g/dl RDW 12.6 11.5-15.5 % PLT 294 130-400 103/uL MPV H 10.8 7.3-10.4 FL Neutro % H 75.5 40-70 % Lymph % L 17.7 20-40 % [place] % 5.1 0-10.0 % Eos % 1.0 0-7.0 % Baso % 0.3 0-2 % Neutro # H 10.9 1.5-7.5 103/uL Lymph # 2.6 0.9-4.0 103/uL [place] # 0.7 0-0.8 103/uL Eos # 0.2 0-0.6 103/uL Baso # 0.0 0-0.1 103/uL Special Chemistry [id number]:44:00 Result Normal Range Units Hemoglobin A1C H 7.8 4.5-6.2 % Thyroid Testing [id number]:44:00 Result Normal Range Units TSH H 3.91 0.36-3.74 uIU/mL Radiology Results [id number]:44:00 Result Normal Range Units MPV H 10.8 7.3-10.4 FL History of procedures Procedure Code Code Type Description Date Performed Performing Physician 88159 CPT-4 COMPLETE CBC W/AUTO DIFF WBC 01-29-2016 FAN PAL 10796 CPT-4 COMPREHEN METABOLIC PANEL 01-29-2016 FAN PAL 86018 CPT-4 GLYCOSYLATED HEMOGLOBIN TEST 01-29-2016 FAN PAL 92284 CPT-4 NATRIURETIC PEPTIDE 01-29-2016 FAN PAL 43997 CPT-4 ASSAY THYROID STIM HORMONE 01-29-2016 FAN PAL Functional status No functional or [...]
--- OUTSIDE RECORDS SUMMARY | 2018-07-26 14:31 | XMS REPORT ---
Author Author [facility] Medical Staff Organization [facility] Address [address] [place], [place] [address] Phone [phone] Care Team Providers Care Diamond Setter Apprentice Name Role Phone FAN SALCEDO PP [phone] Summary purpose TRANSITION OF CARE AUTO GENERATION [...] diagnostic tests and/or laboratory data RESULTS Chemistry :58:00 Result Normal Range Units Sodium 137 134-145 [...] GFR L 55 >=60 mL/min/1.7 Special Chemistry [id number]:58:00 Result Normal Range Units Hemoglobin A1C H 7.5 4.5-6.2 % History of procedures No procedures recorded for [...]
--- OUTSIDE RECORDS SUMMARY | 2018-07-26 14:31 | XMS REPORT ---
Author Author [facility] Medical Staff Organization [facility] Address [address], [place] [address] Phone [phone] Care Team Providers Care Machine Operator Cane Cutter Name Role Phone FAN SALCEDO PP [phone] Summary purpose TRANSITION OF CARE AUTO GENERATION [...]
--- OUTSIDE RECORDS SUMMARY | 2018-07-26 14:31 | XMS REPORT ---
Author Author [facility] Medical Staff Organization [facility] Address [address] [address] Phone [phone] Summary purpose TRANSITION OF CARE AUTO GENERATION [...] diagnostic tests and/or laboratory data RESULTS Chemistry [id number]:00:00 Result Normal Range Units Sodium 134 134-145 [...] L 43 >=60 mL/min/1.7 History of procedures Procedure Code Code Type Description Date Performed Performing Physician 14237 CPT-4 METABOLIC PANEL TOTAL CA 03-18-2016 FAN PAL 05976 CPT-4 ASSAY OF MAGNESIUM 03-18-2016 FAN PAL Functional status No functional or [...]
--- OUTSIDE RECORDS SUMMARY | 2018-07-26 14:31 | XMS REPORT ---
Author Author [facility] Medical Staff Organization [facility] Address [address] [place], [place] [address] Phone [phone] Summary purpose TRANSITION OF CARE AUTO GENERATION [...] diagnostic tests and/or laboratory data RESULTS Chemistry [id number]:44:00 Result Normal Range Units Sodium 139 134-145 [...] Estimated GFR L 58 >=60 mL/min/1.7 Hematology [id number]:44:00 Result Normal Range Units WBC H 14.5 4.8-10.8 103/uL RBC 4.4 4.2-5.4 106/uL HGB 13.8 12.0-16.0 g/dl HCT 41.7 36.9-47.0 % MCV 95.6 81-99 FL MCH H 31.7 27-31 pg MCHC 33.1 33-37 g/dl RDW 12.6 11.5-15.5 % PLT 294 130-400 103/uL MPV H 10.8 7.3-10.4 FL Neutro % H 75.5 40-70 % Lymph % L 17.7 20-40 % [place] % 5.1 0-10.0 % Eos % 1.0 0-7.0 % Baso % 0.3 0-2 % Neutro # H 10.9 1.5-7.5 103/uL Lymph # 2.6 0.9-4.0 103/uL [place] # 0.7 0-0.8 103/uL Eos # 0.2 0-0.6 103/uL Baso # 0.0 0-0.1 103/uL Special Chemistry :44:00 Result Normal Range Units Hemoglobin A1C H 7.8 4.5-6.2 % Thyroid Testing :44:00 Result Normal Range Units TSH H 3.91 0.36-3.74 uIU/mL Radiology Results :44:00 Result Normal Range Units MPV H 10.8 7.3-10.4 FL History of procedures No procedures [...]
--- OUTSIDE RECORDS SUMMARY | 2018-07-26 14:32 | XMS REPORT ---
Author Author [facility] [employer] [facility] CTR Medical Staff Organization [facility] Address [address] [place], [place] [address] Phone [phone] Care Team Providers Care Academic Affairs Vice President Name Role Phone FAN SALCEDO PP [phone] Summary purpose TRANSITION OF CARE AUTO GENERATION [...]
--- OUTSIDE RECORDS SUMMARY | 2018-07-26 14:32 | XMS REPORT ---
Author Author [facility] Medical Staff Organization [facility] Address [address] [place], [place] [address] Phone [phone] Care Team Providers Care Seamless Tube Mill Operator Name Role Phone FAN SALCEOD PP [phone] Summary purpose TRANSITION OF CARE AUTO GENERATION [...] tests and/or laboratory data RESULTS Radiology Results [id number]:53:00 DUP ART DOPPLER EXT PACs Image DATE OF EXAM: 2014 [id number] ARTERIAL DUPLEX LOWER EXT : HISTORY: \ IMPRESSION: \ DATE OF EXAM: 2014 [id number] ART BILAT LIMITED 1-2 LEVELS : RADIOLOGY REPORT DATE OF SERVICE:06/07/15 HISTORY:Lower extremity pain and swelling. BILATERAL ANKLE-BRACHIAL INDICES: 1624 HOURS The right ankle-brachial index is 0.86. The left ankle-brachial index is 0.83. IMPRESSION:Abnormal ankle brachial indices. Complete Doppler will be performed. Herb Bob MD MWJoão/jt06/08/2015 11:29:00 / 06/08/2015 13:21:07 cc:Fna Brown PA-C This document has been electronically Signed by: On: DATE OF EXAM: 2014 [id number] ARTERIAL DUPLEX LOWER EXT : RADIOLOGY REPORT DATE OF SERVICE:06/07/15 HISTORY:Bilateral extremity swelling no acute distress pain. BILATERAL EXTREMITY ARTERIAL DOPPLER: 1624 HOURS The lower extremity arteries were evaluated with high resolution Realtime imaging, pulsed and color flow Doppler. Normal triphasic waveforms are evident in the right common femoral, superficial femoral, popliteal and anterior tibial arteries. The right dorsalis pedis artery shows spectral broadening and a minimally biphasic nearly monophasic appearance. The right posterior tibial artery shows spectral broadening with normal flow speed but maintains a triphasic appearance. The left common femoral, superficial femoral, popliteal and posterior tibial arteries show normal triphasic appearance with normal flow speed. The left anterior tibial artery shows reduced flow speed biphasic appearance and spectral broadening. The left dorsalis pedis artery shows markedly reduced flow with a monophasic appearance. 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 Consider CT angiography for further evaluation. MD BRANDON Sultana/aleisha06/08/2015 11:29:06/08/2015 13:22:59 cc:Fan Brown PA-C This document has been electronically Signed by: On: DATE OF EXAM: 2014 [id number] ARTERIAL DUPLEX LOWER EXT : RADIOLOGY REPORT DATE OF SERVICE:06/07/15 HISTORY:Bilateral extremity swelling no acute distress pain. BILATERAL EXTREMITY ARTERIAL DOPPLER: 1624 HOURS The lower extremity arteries were evaluated with high resolution Realtime imaging, pulsed and color flow Doppler. Normal triphasic waveforms are evident in the right common femoral, superficial femoral, popliteal and anterior tibial arteries. The right dorsalis pedis artery shows spectral broadening and a minimally biphasic nearly monophasic appearance. The right posterior tibial artery shows spectral broadening with normal flow speed but maintains a triphasic appearance. The left common femoral, superficial femoral, popliteal and posterior tibial arteries show normal triphasic appearance with normal flow speed. The left anterior tibial artery shows reduced flow speed biphasic appearance and spectral broadening. The left dorsalis pedis artery shows markedly reduced flow with a monophasic appearance. 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 Consider CT angiography for further evaluation. MD BRANDON Sultana/aleisha06/08/2015 11:29: / 06/08/2015 13:22:59 cc:Fan Brown PA-C This document has been electronically Signed by: HERB BOB On: Jun 10 2015 11:53A Result Amended on 2015-06-10 at 08:09:52. Previous status was IL. Result Amended on 2015-06-10 at 11:53:49. Previous status was IL. History of procedures Procedure Code Code Type Description Date Performed Performing Physician 64736 CPT-4 LOWER EXTREMITY STUDY 06-07-2015 FAN BROWN 55269 CPT-4 EXTREMITY STUDY 06-07-2015 FAN BROWN Functional status No functional or [...]
--- OUTSIDE RECORDS SUMMARY | 2018-07-26 14:32 | XMS REPORT ---
Author Author [facility] Medical Staff Organization [facility] Address [address] [place], [place] [address] Phone [phone] Care Team Providers Care Director Supplier Quality Name Role Phone FAN SALCEDO PP [phone] Summary purpose TRANSITION OF CARE AUTO GENERATION [...] diagnostic tests and/or laboratory data RESULTS Chemistry [id number]:39:00 Result Normal Range Units Magnesium L 1.5 1.7-2.8 mg/dl History of procedures No procedures recorded [...]
--- OUTSIDE RECORDS SUMMARY | 2018-07-26 14:32 | XMS REPORT ---
Author Author Melisa Luo Organization [facility] Address [address] [place], [place] [address] Care Team Providers Care Mortgage Analyst Name Role Phone Melisa Luo PCP Unavailable Allergies and Adverse Reactions Name Reaction Notes PENICILLINS Plan of Treatment Not available. Medications Active Name Start Date Estimated Completion Date SIG Comments levothyroxine 137 mcg oral tablet take 1 tablet (137 mcg) by oral route once daily omeprazole 20 mg oral capsule,delayed release(DR/EC) take 1 capsule (20 mg) by oral route once daily before a meal metoprolol tartrate 25 mg oral tablet take 1 tablet (25 mg) by oral route once daily lisinopril 5 mg oral tablet take 1 tablet (5 mg) by oral route once daily duloxetine 30 mg oral capsule,delayed release(DR/EC) take 2 capsules ( 60 mg) by oral route once daily clopidogrel 75 mg oral tablet take 1 tablet (75 mg) by oral route once daily aspirin 81 mg oral tablet,chewable chew 1 tablet by oral route daily furosemide 20 mg oral tablet take 1 tablet (20 mg) by oral route 2 times per day Humalog 100 unit/mL subcutaneous cartridge atorvastatin 20 mg oral tablet take 1 tablet (20 mg) by oral route once daily hydrocodone-acetaminophen 5-325 mg oral tablet take 1 tablet by oral route every 6 hours as needed for pain baclofen 10 mg oral tablet alprazolam 0.5 mg oral tablet take 1 tablet (0.5 mg) by oral route 3 times per day quetiapine 25 mg oral tablet take 1 tablet by oral route daily bisacodyl 5 mg oral tablet,delayed release (DR/EC) take 1 tablet (5 mg) by oral route once daily temazepam 15 mg oral capsule take 1 capsule (15 mg) by oral route once daily at bedtime as needed Tylenol 325 mg oral tablet take 1 tablet (325 mg) by oral route every 4 hours as needed Dantrium 25 mg oral capsule 05/30/2015 10/27/2015 take 1 capsule by oral route 4 times a day for 30 days titrate according to caledner given to patient dantrolene 25 mg oral capsule 07/02/2015 TAKE 1 CAPSULE FOUR TIMES DAILY FOR 30 DAYS AYS TITRATE ACCORDING TO CALENDER GIVEN TO PATIENT nitrofurantoin 25 mg/5 mL oral suspension Take 1 tab daily (100mg) Myrbetriq 50 mg oral tablet extended release 24 hr take 1 tablet (50 mg ) by oral route once daily swallowing whole with water. Do not crush, chew and/ or divide. Problem List Not available. Vital Signs Date Time BP-Sys(mm[Hg] BP-Erika(mm[Hg]) HR(bpm) RR(rpm) Temp WT HT HC BMI BSA BMI Percentile O2 Sat(%) 07/16/2015 10:11:00 AM 140 mmHg 82 mmHg 69 bpm 18 rpm 96.6 F 209 lbs 62 in 38.23 kg/m2 2.04 m2 05/30/2015 9:33:00 AM 136 mmHg 84 mmHg 71 bpm 18 rpm 97.4 F 216 lbs 62 in 39.5065 kg/m 2.0702 m Social History Not available. History of Procedures Date Ordered Description Order Status 05/30/2015 12:00 AM BL SMEAR W/DIFF WBC COUNT Returned 05/30/2015 12:00 AM COMPLETE CBC AUTOMATED Returned 05/30/2015 12:00 AM COMPREHEN METABOLIC PANEL Returned Results Summary Not available. History Of Immunizations Not available. History of Past Illness Name Date of Onset Comments Hypertension Hyperlipemia Hypothyroidism Diabetes mellitus type 2 in obese GERD Anxiety Depression Constipation Insomnia CVA (cerebral infarction) May 30 2015 9:38AM Spasticity May 30 2015 9:38AM Recurrent Urinary tract infection May 30 2015 9:38AM Gait disturbance, post-stroke May 30 2015 9:38AM Mood disorder due to cerebrovascular accident May 30 2015 9:38AM CVA (cerebral infarction) Jul 16 2015 10:14AM Spasticity Jul 16 2015 10:14AM Recurrent Urinary tract infection Jul 16 2015 10:14AM Gait disturbance, post-stroke Jul 16 2015 10:14AM Mood disorder due to cerebrovascular accident Jul 16 2015 10:14AM Payers Insurance Name Company Name Plan Name Plan Number Policy Number Policy Group Number Start Date Medicare Part B Medicare [place] [id number] [place] [employer] [place] [employer] [place] [id number] N/A History of Encounters Visit Date Visit Type Provider 07/16/2015 Office visit Melisa Luo MD 05/30/2015 Office visit Melisa Luo MD 11/07/2014 [facility] Vale Lassiter MD 11/05/2014 [facility] Rimma Alejandro MD 11/02/2014 [facility] Melisa Luo MD
--- OUTSIDE RECORDS SUMMARY | 2018-07-26 14:32 | XMS REPORT ---
Author Author [facility] Medical Staff Organization [facility] Address [address] [place], [place] [address] Phone [phone] Care Team Providers Care Coding Clerk Name Role Phone FAN SALCEDO PP [phone] FAN SALCEDO PP [phone] FAN SALCEDO PP [phone] Summary purpose TRANSITION OF CARE AUTO GENERATION Chief Complaint and Reason for Visit Admit Diagnosis 1 URIN TRACT INFECTION NOS Problem list No authorized problems tracked [...] tests and/or laboratory data RESULTS Blood Cultures 27-68-252728:30:00 Blood Culture Plate Date and Time 04/03/2015 13:35 SourceBLOOD CULTURE REPORT NoGrowth at 1 day. Unless otherwise notified. Final report in 5 Days. Release Date/Time: 04/04/2015 07:40 CULTURE REPORT No growth in 5 days. Release Date/Time: 04/08/2015 14:31 Chemistry [id number]:17:00 Result Normal Range Units Sodium 138 134-145 [...] Estimated GFR L 29 >=60 mL/min/1.7 Hematology 99-80-286348:17:00 Result Normal Range Units WBC H 14.9 4.8-10.8 103/uL RBC L 3.4 4.2-5.4 106/uL HGB L 11.2 12.0-16.0 g/dl HCT L 32.2 36.9-47.0 % MCV 94.2 81-99 FL MCH H 32.7 27-31 pg MCHC 34.8 33-37 g/dl RDW 13.0 11.5-15.5 % PLT 245 130-400 103/uL MPV 10.1 7.3-10.4 FL Neutro % H 73.1 40-70 % Lymph % L 15.7 20-40 % Trigg % 9.4 0-10.0 % Eos % 1.6 0-7.0 % Baso % 0.2 0-2 % Neutro # H 10.9 1.5-7.5 103/uL Lymph # 2.3 0.9-4.0 103/uL Trigg # H 1.4 0-0.8 103/uL Eos # 0.2 0-0.6 103/uL Baso # 0.0 0-0.1 103/uL [id number]:30:00 Result Normal Range Units WBC H 23.0 [...] 0-5 % Lymphs L 6.0 20-40 % Trigg 7.0 0-10 % Eos 1.0 0-7 % Radiology Results [id number]:17:00 Result Normal Range Units MPV 10.1 7.3-10.4 FL 58-04-745690:30:00 Result Normal Range Units MPV 10.2 7.3-10.4 FL History of procedures Procedure Code Code Type Description Date Performed Performing Physician 50292 CPT-4 ROUTINE VENIPUNCTURE 04-03-2015 JUAN CARLOS JOEL 48158 CPT-4 ROUTINE VENIPUNCTURE 04-03-2015 FAN PAL 55100 CPT-4 ROUTINE VENIPUNCTURE 04-04-2015 JUAN CARLOS JOEL 01223 CPT-4 METABOLIC PANEL TOTAL CA 04-03-2015 GILBERT SYLVESTER 30537 CPT-4 COMPREHEN METABOLIC PANEL 04-04-2015 GILBERT SYLVESTER 23984 CPT-4 BL SMEAR W/DIFF WBC COUNT 04-03-2015 FAN PAL 23907 CPT-4 COMPLETE CBC W/AUTO DIFF WBC 04-04-2015 GILBERT SYLVESTER 96212 CPT-4 COMPLETE CBC, AUTOMATED 04-03-2015 FAN PAL 72228 CPT-4 BLOOD CULTURE FOR BACTERIA 04-03-2015 GILBERT SYLVESTER 82891 CPT-4 ELECTROCARDIOGRAM, TRACING 04-03-2015 GILBERT SYLVESTER 27185 CPT-4 AIRWAY INHALATION TREATMENT 04-03-2015 GILBERT SYLVESTER 11822 CPT-4 AIRWAY INHALATION TREATMENT 04-03-2015 GILBERT SYLVESTER 58588 CPT-4 AIRWAY INHALATION TREATMENT 04-04-2015 GILBERT SYLVESTER 08416 CPT-4 AIRWAY INHALATION TREATMENT 04-04-2015 GILBERT SYLVESTER 43797 CPT-4 AIRWAY INHALATION TREATMENT 04-04-2015 GILBERT SYLVESTER 01213 CPT-4 HYDRATE IV INFUSION, ADD-ON 04-03-2015 GILBERT SYLVESTER 87379 CPT-4 HYDRATE IV INFUSION, ADD-ON 04-04-2015 GILBERT SYLVESTER 61425 CPT-4 THER/PROPH/DIAG IV INF, INIT 04-03-2015 GILBERT SYLVESTER 07252 CPT-4 TX/PRO/DX INJ NEW DRUG ADDON 04-03-2015 GILBERT SYLVESTER A9270 CPT-4 NON-COVERED ITEM OR SERVICE 04-03-2015 JUAN CARLOS JOEL A9270 CPT-4 NON-COVERED ITEM OR SERVICE 04-03-2015 JUAN CARLOS JOEL A9270 CPT-4 NON-COVERED ITEM OR SERVICE 04-03-2015 JUAN CARLOS JOEL A9270 CPT-4 NON-COVERED ITEM OR SERVICE 04-03-2015 FAN PAL A9270 CPT-4 NON-COVERED ITEM OR SERVICE 04-03-2015 FAN PAL A9270 CPT-4 NON-COVERED ITEM OR SERVICE 04-03-2015 FAN PAL A9270 CPT-4 NON-COVERED ITEM OR SERVICE 04-04-2015 JUAN CARLOS JOEL A9270 CPT-4 NON-COVERED ITEM OR SERVICE 04-04-2015 JUAN CARLOS JOEL A9270 CPT-4 NON-COVERED ITEM OR SERVICE 04-04-2015 JUAN CARLOS JOEL A9270 CPT-4 NON-COVERED ITEM OR SERVICE 04-04-2015 JUAN CARLOS JOEL A9270 CPT-4 NON-COVERED ITEM OR SERVICE 04-04-2015 JUAN CARLOS JOEL A9270 CPT-4 NON-COVERED ITEM OR SERVICE 04-04-2015 FAN PAL G0378 CPT-4 HOSPITAL OBSERVATION PER HR 04-03-2015 GILBERT SYLVESTER G0378 CPT-4 HOSPITAL OBSERVATION PER HR 04-03-2015 GLIBERT SYLVESTER G0378 CPT-4 HOSPITAL OBSERVATION PER HR 04-04-2015 GILBERT SYLVESTER G0379 CPT-4 DIRECT ADMIT HOSPITAL OBSERV 04-03-2015 GILBERT SYLVESTER J0696 CPT-4 CEFTRIAXONE SODM 250MG INJ 04-03-2015 JUAN CARLOS JOEL J0696 CPT-4 CEFTRIAXONE SODM 250MG INJ 04-04-2015 JUAN CARLOS JOEL J2550 CPT-4 PROMETHAZIEN 25MG/ML 04-03-2015 JUAN CARLOS JOEL J7030 CPT-4 NORMAL SALINE SOLUTION INFUS 04-03-2015 JUAN CARLOS JOEL J7030 CPT-4 NORMAL SALINE SOLUTION INFUS 04-04-2015 JUAN CARLOS JOEL J7030 CPT-4 NORMAL SALINE SOLUTION INFUS 04-04-2015 JUAN CARLOS J7620 CPT-4 ALBUTEROL IPRATROP NON-COMP 04-03-2015 JUAN CARLOS JOEL J7620 CPT-4 ALBUTEROL IPRATROP NON-COMP 04-03-2015 JUAN CARLOS JOEL J7620 CPT-4 ALBUTEROL IPRATROP NON-COMP 04-04-2015 JUAN CARLOS JOEL J7620 CPT-4 ALBUTEROL IPRATROP NON-COMP 04-04-2015 JUAN CARLOS JOEL J7620 CPT-4 ALBUTEROL IPRATROP NON-COMP 04-04-2015 JUAN CARLOS JOEL Functional status Functional Status Finding Observation Time Hearing Prob Loc none 91-54-201917:50 Vision Problems no 23-76-961382:50 Ambulation Asst Dev other (specify) Comment: leg brace 42-21-287306:50 Range of Motion full 77-67-013377:06 Muscle Strength RUE 2 passive ROM 19-08-461889:06 Muscle Strength RLE 2 passive ROM 05-78-784067:06 Muscle Strength LUE 5 ROM full resist 32-43-137258:06 Muscle Strength LLE 5 ROM full resist 76-00-418737:06 Transfers assist x 1 37-80-061478:06 Ambulation in room 13-92-527392:06 Balance unsteady 81-81-749967:06 Bathing Assistance minimal 73-70-385312:50 Eating Assistance minimal 84-55-257365:50 Dressing Assistance minimal 99-23-349860:50 Toileting Assistance minimal 43-38-727126:50 Transfer Assistance minimal 49-95-817882:50 Decline Slf Care/Mob no 75-07-184711:50 Phys Cond Stable yes 30-60-924744:50 Nutrition nausea/vomiting 14-04-359480:06 Diet ADA specify calorie 41-13-609944:34 Oral Cavity moist and intact 67-28-111235:06 Teeth intact 34-95-724181:06 Dental Hygiene good 03-46-781194:06 Abdomen Appearance obese 41-30-153550:06 Abdomen soft :06 Bowel Sounds present 76-14-542813:06 NG Tube no :06 Feeding Tube none :06 Cain no :06 Cont Bladder Irr no 19-79-089837:06 Ostomy no 91-25-914231:06 Stool normal :06 Color normal :00 Consistency loose :00 Urination normal 12-07-680217:06 Urine Clarity clear 65-31-555812:06 Urine Color yellow 07-02-440227:06 Quality sym/unlabored :06 Cough absent :06 Secretions no :06 Breath Sounds RUL diminished :32 Breath Sounds RML diminished :32 Breath Sounds RLL diminished :32 Breath Sounds KAYCEE diminished :32 Breath Sounds LLL diminished 51-88-661393:32 Airway natural :06 Chest Tube no :06 Oxygen no :06 Oxygen Flow Rate ra 22-01-946031:32 C-PAP no 38-96-768927:06 BI-PAP no 00-83-035102:06 New Infection urinary tract infect 27-50-035693:06 Temp >100.4 no :06 Temp <96.8 no :06 Chills with rigors no :06 HR > 90bpm yes 41-25-924100:06 Respirations > 20 no :06 Systolic <90 no 10-39-304974:06 headache stiff neck no 47-53-710842:06 WBC > 05747 yes :06 WBC < 4000 no 78-05-453080:06 Rapid Resp no 73-04-136660:06 IV Site Location Rt forearm 72-73-181873:07 IV Type peripheral 29-23-272983:07 IV Site Information existing 07-53-458789:07 IV Site Start Attmpt 1 times 43-64-424683:05 IV Site Benedict 22 :07 IV Site Appearance WNL :07 IV Site Color clear :07 IV Site Patent yes :07 Dressing Changed yes :05 Dressing Type occlusive :07 Nursing Note pt here 04/05/15 for infusion. Pt states feeling better and stay was good. :01 Cognitive Status Finding Observation Time Oriented To Date 5 Yes 38-36-213415:[address] 5 Yes :50 Name 3 Objects 3 Yes :50 Name Object in Rm 2 Yes :50 Recall 3 Objects 3 Yes :50 Repeats a Phrase 1 Yes :50 Follows Verbal Direc 3 Yes :50 Follows Written Dire 1 Yes :50 Write a Sentance 1 Yes :50 Draw an Object 1 Yes :50 Mini Mental Total 25 points :50 Less than 20 Phys not applicable 76-81-567347:50 Learning Ability comprehends well :00 Neurological yes :00 Psychological no :00 Physical yes :00 Hearing no :00 Undercollar Maker Needed no :00 Sign Language no :00 Emotional no :00 Vision no :00 Laguage no :00 Financial no :00 Vital signs Type Value Date Respiration Rate 20breaths per minute :32 Pulse 103beats per minute :32 Oxygen Saturation 95% :32 BP Systolic 143mmHg :22 BP Diastolic 71mmHg :22 Temperature 98.7F :22 Height 62inches :45 Weight 217LB :45 Social history Type Value Smoking Status FORMER [...]
--- OUTSIDE RECORDS SUMMARY | 2018-07-26 14:32 | XMS REPORT ---
Author Author [facility] Medical Staff Organization [facility] Address [address] [place], [place] [address] Phone [phone] Care Team Providers Care Material Controller Name Role Phone FAN SALCEDO PP [phone] Summary purpose TRANSITION OF CARE AUTO GENERATION [...] diagnostic tests and/or laboratory data RESULTS Chemistry [id number]:36:00 Result Normal Range Units Triglycerides H 256 35-160 mg/dl Cholesterol 143 120-200 mg/dl HDL Cholesterol L 33 39-96 mg/dl VLDL Cholesterol H 51 5-40 mg/dl LDL Cholesterol 69 30-100 mg/dl History of procedures Procedure Code Code Type Description Date Performed Performing Physician 62709 CPT-4 LIPID PANEL 02-05-2016 FAN PAL Functional status No functional [...]
--- OUTSIDE RECORDS SUMMARY | 2018-07-26 14:32 | XMS REPORT ---
Author Author [employer] [facility] Medical Staff Organization [facility] [employer] [facility] Address [address] [place], [place] [address] Phone [phone] Summary purpose TRANSITION OF CARE AUTO GENERATION Chief Complaint and Reason for Visit Admit Diagnosis 1 CELLULITIS NOS Problem list No authorized problems tracked [...] diagnostic tests and/or laboratory data RESULTS Chemistry [id number]:30:00 Result Normal Range Units Sodium 135 134-145 mEq/l Potassium 4.4 3.5-5.1 mEq/l Chloride L 97 98-107 mEq/l CO2 27.9 22-28 mEq/l Glucose H 221 70-105 mg/dl BUN 17 7-18 mg/dl Creatinine H 1.62 0.6-1.0 mg/dl Calcium 9.0 8.4-10.2 mg/dl Osmolality L 278.4 280-300 mOsm/L Anion GAP 10.1 8-16 BUN/Creatinine Ratio 10.5 10-20 Estimated GFR L 35 >=60 mL/min/1.7 History of procedures Procedure Code Code Type Description Date Performed Performing Physician 78527 CPT-4 METABOLIC PANEL T[facility] Functional status No functional or cognitive status [...]
--- OUTSIDE RECORDS SUMMARY | 2018-07-26 14:33 | XMS REPORT ---
Author Author MARTHA WEBB [employer] Address Unknown Phone Unavailable Care Team Providers Care Safety Scientist Name Role Phone MARTHA WEBB CP Unavailable Allergies No Known Allergies Problems Problem Type Condition ICD-9 Code Onset Dates Condition Status Problem Diabetes mellitus without mention of complication, type II or unspecified type, not stated as uncontrolled 250.00 Active Problem Essential hypertension, benign 401.1 Active Problem Edema 782.3 Active Assessment Dental examination V72.2 Active Medications No Known Medications Procedures Procedure Coding System Code Date INTRAORL-PERIAPICAL 1 FILM 98800 CPT-4 D0220 Jul 02, 2015 INTRAORL-PERIAPICAL EA ADD FILM CPT-4 D0230 Jul 02, 2015 COMP ORAL EVALUATION - NEW/EST PT CPT-4 D0150 Jul 02, 2015 BITEWINGS - TWO FILMS CPT-4 D0272 Jul 02, 2015 INTRAORL-PERIAPICAL EA ADD FILM CPT-4 D0230 Jul 02, 2015 PROPHYLAXIS - ADULT CPT-4 D1110 Jul 02, 2015 Results No Known Results Summary Purpose [employer] Submission
--- OUTSIDE RECORDS SUMMARY | 2018-07-26 14:33 | XMS REPORT | Clinical Summary ---
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 Miguel Cardoso MD Urinary tract infection, site not specified Medication List Medication Instructions Start Date Stop Date Generic Name NDC Status Provider Patient Instruction XANAX 0.25 MG TABS 1 po TID PRN Anxiety ALPRAZOLAM 63603239726 Active Asha Elder Active PROVERA 10 MG TAB 1 tab by moth daily MEDROXYPROGESTERONE ACETATE 91106292981 Active Asha Elder Active PLAVIX 75 MG TABS 1 tablet by mouth daily CLOPIDOGREL BISULFATE 61190441834 Active Asha Elder Active NYSTATIN-TRIAMCINOLONE 272674-8.1 UNIT/GM-% OINT Apply to affected area three times daily prn NYSTATIN-TRIAMCINOLONE 87108667450 Active Asha Elder Active MYRBETRIQ 50 MG ORAL [id number] 1 tab by mouth daily MIRABEGRON 19880311748 Active Asha Elder Active METOPROLOL SUCCINATE 25 MG [id number] 1 pill by mouth daily for blood pressure METOPROLOL SUCCINATE 26080465694 Active Asha Elder Active LISINOPRIL 5 MG TABS 1 po qd LISINOPRIL 78283230465 Active Asha Elder Active LEVOTHYROXINE SODIUM 200 MCG ORAL TABS 1 po q a.m. LEVOTHYROXINE SODIUM 46885176126 Active Asha Elder Active HYDROCORTISONE 1 % EXT CREA Apply to affected area HYDROCORTISONE 76679536568 Active Asha Elder Active FUROSEMIDE 20 MG TAB 1 tablet by mouth daily FUROSEMIDE 38912032044 Active Asha Elder Active DULOXETINE HCL 30 MG ORAL CPEP 1 tab by mouth daily DULOXETINE HCL 70108364323 Active Asha Elder Active DULOXETINE HCL 60 MG CPEP 1 pill daily, for depression DULOXETINE HCL 51252983983 Active Asha Elder Active DANTROLENE SODIUM 25 MG ORAL CAPS use as directed DANTROLENE SODIUM 10309353497 Active Asha Elder Active CVS BISACODYL 5 MG ORAL TBEC 1 tab by mouth twice daily prn BISACODYL 61007448597 Active Asha Elder Active ATORVASTATIN CALCIUM 40 MG TABS 1 nightly, for cholesterol ATORVASTATIN CALCIUM 91506118394 Active Asha Elder Active ASPIRIN 81 MG ORAL TBEC 1 po qd ASPIRIN 44515034000 Active Asha Elder Active AMITRIPTYLINE HCL 25 MG TAB 1 tab by mouth daily at bedtime AMITRIPTYLINE HCL 48813874558 Active Asha Elder Active HYDROCODONE-ACETAMINOPHEN 5-325 MG ORAL TABS 1 tab by mouth three times daily prn pain HYDROCODONE-ACETAMINOPHEN 11612122331 Active Asha Elder Active ALBUTEROL SULFATE 0.083 % NEBU SOLN 1 vial in nebulizer qid prn ALBUTEROL SULFATE 74880235252 Active Asha Elder Active ACETAMINOPHEN EXTRA STRENGTH 500 MG ORAL TABS 1 tab by mouth twice daily prn pain ACETAMINOPHEN 81257152440 Active Asha Elder Active MACROBID 100 MG CAP Take one by mouth daily NITROFURANTOIN MONOHYD MACRO 28953988991 No Longer Active Asha Elder Active MYRBETRIQ 50 MG [id number] 1 tablet daily MIRABEGRON 82723900830 No Longer Active Miguel Cardoso MD Active MACROBID 100 MG CAP Take one by mouth daily MACROBID 100 MG CAP 3826747 NITROFURANTOIN MONOHYD MACRO Inactive MYRBETRIQ 50 MG [id number] 1 tablet daily MYRBETRIQ 50 MG [id number] MIRABEGRON Inactive Advance Directives Directive Description Start Date PERMISSION TO SHARE Encounters Code Encounter Date Provider Facility [id number] Level 2 Est. Patient 13:11:25 CLINICAL LAB TECHNOLOGIST Miguel Cardoso MD [facility] CPT-15808 Level 3 New Patient 15:58:17 CDT Miguel Cardoso MD [facility] Procedures Code Procedure Name Date Entry Date Standard Description CPT-89430 Urine Dip (Floor Use Only) 15:58:18 CDT CPT-88153 Bladder Scan 15:58:17 CDT
--- OUTSIDE RECORDS SUMMARY | 2018-07-26 14:33 | XMS REPORT ---
Author Author Melisa Luo Organization [facility] Address [address] [place], [place] [id number] Care Team Providers Care Sausage Grinder Name Role Phone Melisa Luo PCP Unavailable [...] day for 30 days titrate according to angelikaner given to patient Problem List Not available. Vital Signs Date Time BP-Sys(mm[Hg] BP-Erika(mm[Hg]) HR(bpm) RR(rpm) Temp WT HT HC BMI BSA BMI Percentile O2 Sat(%) 05/30/2015 9:33:00 AM 136 mmHg 84 mmHg 71 bpm 18 rpm 97.4 F 216 lbs 62 in 39.51 kg/m2 2.07 m2 Social History Not available. History of Procedures [...] to cerebrovascular accident May 30 2015 9:38AM Payers Insurance Name Company Name Plan Name Plan Number Policy Number Policy Group Number Start Date Medicare Part B [place] [id number] N/[place] [employer] [place] [employer] [place] [id number] N/A History of Encounters Visit Date Visit Type Provider 05/30/2015 Office visit Melisa Luo MD 11/07/2014 [facility] Vale Lassiter MD 11/05/2014 [facility] Rimma Alejandro MD 11/02/2014 [facility] Melisa Luo MD
[2018-07-26 14:34] VITALS: BP 194/95
--- OUTSIDE RECORDS SUMMARY | 2018-07-26 14:34 | XMS REPORT ---
Author Author [facility] Medical Staff Organization [facility] Address [address] [place], [place] [id number] Phone [phone] Care Team Providers Care Reactor Kettle Operator Name Role Phone FAN SALCEDO PP [phone] Summary purpose TRANSITION OF CARE AUTO GENERATION Chief Complaint and Reason for Visit Admit Diagnosis 1 URIN TRACT INFECTION NOS Admit Diagnosis 2 HYPERTENSIVE CRISIS Problem list No authorized problems tracked for continuity of care are available for this visit. Encounters The following conditions tracked for encounter diagnoses were recorded for this visit: Finding or Diagnosis Status Certainty Chronicity Onset *URINARY TRACT INFECTION Active *HYPONATREMIA Resolved *TRANSIENT ISCHEMIC ATTACK Inactive *MALAISE AND FATIGUE Active *ABNORMAL BLOOD PRESSURE; Hypertension Active *LEUKOCYTOSIS Active *DIABETES MELLITUS TYPE 2 Active *STROKE CVA DUE TO CEREBRAL ARTERY OCCLUSION Active Medications Home Medications Medication Directions Started Status Source Xanax 0.5 mg Tab 0.5 mg Oral PRN 3 Times A Day for anxiety Current Rx Discharge Report Zoloft 50 mg Tab 50 mg Oral 1 Daily Discont Patient recall aspirin 81 mg Cap, delayed release 81 mg Oral 1 Daily Current Patient recall naproxen Oral 500 mg Oral Daily If Needed for pain with food Current Rx Discharge Report levothyroxine 25 mcg Tab 1 tablet Oral 1 Daily for thyroid Discont Rx Discharge Report meclizine 25 mg Tab 1 tablet Oral PRN 4 Times A Day for dizziness Discont Rx Discharge Report glimepiride 1 mg Tab 1 tablet Oral 1 Daily for diabetes Discont Rx Discharge Report lisinopril-hydrochlorothiazide 10 mg-12.5 mg Tab 1 tablet Oral 1 Daily for blood pressure Discont Rx Discharge Report Cipro 250 mg Tab 250 mg Oral 2 Times Daily for infection Discont Rx Discharge Report levothyroxine 75 mcg tablet 1 tablet oral 1 Daily Current Family recall from memory escitalopram 20 mg tablet 1 tablet oral 1 Daily Current Family recall from memory Novolog Mix 70-30 FlexPen 100 unit/mL subcutaneous pen 18 units subQ 2 Times Daily 15 minutes before breakfast and supper Current Family recall from memory furosemide 20 mg tablet 1 tablet oral Wednesday, Wednesday, Wednesday Current Family recall from memory Allergies, adverse reactions, alerts Allergen Category Ingredient Status Reaction Severity Onset Penicillins Drug Allergy Penicillins Confirmed or Verified Immunizations No immunizations recorded for this patient visit Relevant diagnostic tests and/or laboratory data RESULTS [id number]:35:00 Discharge Summary DISCHARGE SUMMARY DIAGNOSES: 1. 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 2. Type 2 diabetes. 3. Hyperlipidemia. 4. Hypertension. 5. Hypothyroidism. HISTORY:This 44-year-old female presented to the emergency room with the complaints of feeling blocked, sinus congestion, having some complaints of not being able to walk without feeling weak and had to hold onto the furniture. The patient has been having high blood sugars. She notes there is some slurring to her speech which was common when her blood sugars were high.On evaluation in the emergency room. She was found to have high blood pressure, and her white count was elevated at 20,800. PHYSICAL EXAMINATION ON ADMISSION:VITAL SIGNS: Temperature 98.5, pulse 99, blood pressure 170/100 initially and then 156/75, respirations 18, and oxygen saturation on 100% on room air. HEENT: Clear. LUNGS: Clear. HEART: Normal sinus rhythm. LUNGS: Clear without rales, rhonchi, or wheezes. HEART: Normal sinus rhythm without gallops or murmurs. ABDOMEN: Soft and nontender. EXTREMITIES: Without edema. LABORATORY/X-RAY/EKG DATA:Serial complete blood count showed white count 20,800 on admission. As noted, differential showed 68% segmented neutrophils, 28% bands, 2% monocytes. White count had dropped to 13,300 on the day of admission and remained essentially stable throughout the duration of her hospital stay. Chemistries on admission showed a sodium of 129, potassium 4.1, chloride of 94, glucose 296, BUN 8, creatinine 1.28. Chemistries were essentially normal otherwise. Lactic acid was 1.9. Hemoglobin A1c is 8.3. Thyroid stimulating hormone was 38.77. Serial chemistries showed gradual improvement in the sodium. Her lipid profile on the showed triglycerides of 239, cholesterol 312, HDL of 51, LDL of 239. Electrolytes continued to be essentially normal. BUN renuka to 31 with a creatinine of 3.135 on the 18 of October. Estimated GFR was 43. Blood culture on admission showed no growth. A urine culture showed greater than 100,000 colonies ofmixed gram-positive james. A follow up urine culture on the howed no growth. Rapid Mycoplasma and rapid mono and rapid influenza were negative. Urinalysis on admission showed too numerous to count white blood cells, 3+ leukocytes. Followup complete blood count showed improvement in the white count at 20 to 30 per high power field. Trichomonas was noted in the initial UAs. Chest x-ray on admission were negative. Followup chest x-rays were likewise clear. CT head of the was normal. Carotid Doppler studies showed 60 to 70% stenosis on the right in the proximal internal carotid artery with less than 40% on the left.MRI of the head showed evidence of acute or subacute infarct in the left chris. 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 HOSPITAL COURSE:Following admission, the patient was started on intravenous fluids, sliding scale insulin. She was started on Cipro for treatment of suspected urinary tract infection with the finding of Pseudomonas. She was also started on oral metronidazole. On the morning of the , the patient was found to be having some trouble with her speech, feeling weak on the right side with difficulty walking without assistance. CT of the head was performed that which was normal. It was felt this probably represented a transient ischemic attack or mild stroke. She did have some weakness to the right arm with mild arm drop when the hands are extended.The wax room supervisor strength was equal bilaterally. Gait was slow.[id number] was difficult for her to do on the right hand. The patient was started on an aspirin. Echocardiogram and carotid Doppler studies were obtained, results of which are noted. On the firer watertender hours of the , the patient started having elevated blood pressure readings of192/126. She was given initially lisinopril and Norvasc by mouth. Blood pressures continued to be elevated. She was having some mild right-sided headache. She continued to have problems with right-sided weakness. Because of her blood pressure elevation, she was transferred to the intensive care unit. Examination at that time was essentially unremarkable except for mild, continued right-sided weakness. The patient later in the morning started having problems with increased slurring of the speech, decreased usage of the right arm compared to earlier in the morning. MRI of the head at that time showed evidence of cerebrovascular accident of the left chris. A telephone consultation was obtained with neurologist at the [facility] with regards to the situation.They felt there was little else to be offered at this point in time and that her treatment and management seemed to be appropriate. Patient continued to have problems with right-sided facial weakness. She developed complete paralysis of the right arm with weakness of the right leg. She was seen in consultation by physical and occupational therapy and speech therapy. Blood pressures remained well controlled through her hospital stay. Early on, it was recommended that the patient and family consider transferring to a rehabilitation facility. However, they expressed no desire to do so, and they wished to take the patient home directly. However, as time progressed and the paralysis was very minimal, they were much more receptive to more aggressive therapy at a rehabilitation facility. The patient has a history of noncompliance with medication with regards to her diabetes, hyperlipidemia and hypothyroidism medication.We started to address these issues while in the hospital. She has been strongly advised to quit smoking as well.The patient had essentially no improvement in the right arm functionality. However, the right leg functionality did improve, and she was able to walk with the assistance of the use of a walker. Subsequently, the patient was evaluated by rehabilitation center at [place] who agreed to accept the patient in transfer.The patient was transferred on the to [facility] rehabilitation facility for continued therapy of right-sided paralysis. Star Howell MD LAUNDRY ATTENDANT/cc 10/25/2014 10:35:58/10/26/2014 11:35:28 [facility] [address] [place] [address] <END HEADER> Routine Urinalysis [id number]:40:00 Result Normal Range Units Color YELLOW Clarity Slighty cloudy Specific [place] 1.025 1.003-1.035 pH 5.5 4.5-8.0 Glucose NEGATIVE Bilirubin NEGATIVE Ketones NEGATIVE Protein NEGATIVE Urobilinogen 0.2 0-0.2 E.U./dL Nitrites NEGATIVE Blood NEGATIVE Leukocytes TRACE WBCs 20-30 RBCs 0-5 Squamous Epithelial Few Bacteria 1+ Hyaline Casts 1+ [id number]:50:00 Result Normal Range Units Color YELLOW Clarity Slighty cloudy Specific [place] 1.010 1.003-1.035 pH 7.5 4.5-8.0 Glucose NEGATIVE Bilirubin NEGATIVE Ketones NEGATIVE Protein NEGATIVE Urobilinogen 0.2 0-0.2 E.U./dL Nitrites NEGATIVE Blood NEGATIVE Leukocytes 3+ WBCs 20-30 RBCs No RBC's Seen. Squamous Epithelial 2+ Bacteria 2+ Trichomonas 2+ [id number]:40:00 Result Normal Range Units Color YELLOW Clarity Hazy Specific [place] 1.010 1.003-1.035 pH 6.5 4.5-8.0 Glucose NEGATIVE Bilirubin NEGATIVE Ketones NEGATIVE Protein TRACE Urobilinogen 0.2 0-0.2 E.U./dL Nitrites NEGATIVE Blood TRACE Leukocytes 3+ WBCs Too numerous to count RBCs 0-5 Squamous Epithelial 1+ Bacteria 1+ Trichomonas Occasional Culture Set Blood Cultures [id number]:20:00 Blood Culture Plate Date and Time 10/07/2014 13:25 SourceBLOOD CULTURE REPORT NoGrowth at 1 day. Unless otherwise notified. Final report in 5 Days. Release Date/Time: 10/08/2014 11:22 CULTURE REPORT No growth in 5 days. Release Date/Time: 10/13/2014 07:38 [id number]:04:00 Blood Culture Plate Date and Time 10/07/2014 13:25 SourceBLOOD CULTURE REPORT NoGrowth at 1 day. Unless otherwise notified. Final report in 5 Days. Release Date/Time: 10/08/2014 11:21 CULTURE REPORT No growth in 5 days. Release Date/Time: 10/13/2014 07:37 Routine Cultures [id number]:00 Urine Culture Plate Date and Time 10/17/2014 13:47 SourceURINE CULTURE REPORT No Growth After 24 Hours Release Date/Time: 10/18/2014 07:22 CULTURE REPORT No Growth After 48 Hours Release Date/Time: 10/19/2014 07:39 [id number]:50:00 Urine Culture Plate Date and Time 10/11/2014 21:55 SourceURINE CULTURE REPORT Large Amount Possible Contamination No Further Work Up Release Date/Time: 10/13/2014 08:29 [id number]:00 Urine Culture Plate Date and Time 10/07/2014 12:56 SourceURINE CULTURE REPORT >100,000 colonies/ml Mixed Gram Pos James Release Date/Time: 10/08/2014 07:36 CULTURE REPORT >100,000 colonies/ml Mixed Gram Pos James Release Date/Time: 10/09/2014 07:39 Chemistry [id number]:00:00 Result Normal Range Units Sodium L 132 134-145 mEq/l Potassium 3.7 3.5-5.1 mEq/l Chloride L 96 98-107 mEq/l CO2 25.7 22-28 mEq/l Glucose H 123 70-105 mg/dl BUN H 31 7-18 mg/dl Creatinine H 1.35 0.6-1.0 mg/dl Calcium 9.5 8.4-10.2 mg/dl Magnesium 1.7 1.7-2.8 mg/dl Osmolality L 272.4 280-300 mOsm/L Anion GAP 10.3 8-16 BUN/Creatinine Ratio H 23.0 10-20 Estimated GFR L 43 >=60 mL/min/1.7 [id number]:50:00 Result Normal Range Units Sodium L 133 134-145 mEq/l Potassium 3.9 3.5-5.1 mEq/l Chloride L 96 98-107 mEq/l CO2 26.7 22-28 mEq/l Glucose H 147 70-105 mg/dl BUN H 27 7-18 mg/dl Creatinine H 1.45 0.6-1.0 mg/dl Calcium 9.3 8.4-10.2 mg/dl TP - Total Protein 7.9 6.0-8.3 g/dl Albumin 3.5 3.5-5 g/dl Bilirubin - Total 0.3 0.1-1.0 mg/dl AST 32 10-42 IU/L ALT 32 12-65 IU/L ALP H 123 25-72 IU/L Osmolality L 274.2 280-300 mOsm/L Albumin/Globulin Ratio 0.8 0-8 Anion GAP 10.3 8-16 BUN/Creatinine Ratio 18.6 10-20 Estimated GFR L 39 >=60 mL/min/1.7 [id number]:55:00 Result Normal Range Units Sodium L 132 134-145 mEq/l Potassium 3.8 3.5-5.1 mEq/l Chloride L 95 98-107 mEq/l CO2 27.8 22-28 mEq/l Glucose H 140 70-105 mg/dl BUN H 21 7-18 mg/dl Creatinine H 1.38 0.6-1.0 mg/dl Calcium 9.4 8.4-10.2 mg/dl Osmolality L 269.8 280-300 mOsm/L Anion GAP 9.2 8-16 BUN/Creatinine Ratio 15.2 10-20 Estimated GFR L 42 >=60 mL/min/1.7 :35:00 Result Normal Range Units Sodium 134 134-145 mEq/l Potassium 3.7 3.5-5.1 mEq/l Chloride L 97 98-107 mEq/l CO2 H 29.5 22-28 mEq/l Glucose 97 70-105 mg/dl BUN 16 7-18 mg/dl Creatinine H 1.32 0.6-1.0 mg/dl Calcium 9.5 8.4-10.2 mg/dl Osmolality L 269.3 280-300 mOsm/L Anion GAP L 7.5 8-16 BUN/Creatinine Ratio 12.1 10-20 Estimated GFR L 44 >=60 mL/min/1.7 :00:00 Result Normal Range Units Sodium L 133 134-145 mEq/l Potassium 4.0 3.5-5.1 mEq/l Chloride L 95 98-107 mEq/l CO2 H 29.4 22-28 mEq/l Glucose H 134 70-105 mg/dl BUN 9 7-18 mg/dl Creatinine H 1.13 0.6-1.0 mg/dl Calcium 9.6 8.4-10.2 mg/dl TP - Total Protein 7.5 6.0-8.3 g/dl Albumin 3.5 3.5-5 g/dl Bilirubin - Total 0.3 0.1-1.0 mg/dl AST 37 10-42 IU/L ALT 35 12-65 IU/L ALP H 117 25-72 IU/L Osmolality L 267.0 280-300 mOsm/L Albumin/Globulin Ratio 0.9 0-8 Anion GAP 8.6 8-16 BUN/Creatinine Ratio L 8.0 10-20 Estimated GFR L 53 >=60 mL/min/1.7 :42:00 Result Normal Range Units Sodium 137 134-145 mEq/l Potassium 4.0 3.5-5.1 mEq/l Chloride 99 98-107 mEq/l CO2 H 28.6 22-28 mEq/l Glucose H 124 70-105 mg/dl BUN 7 7-18 mg/dl Creatinine H 1.04 0.6-1.0 mg/dl Calcium 9.3 8.4-10.2 mg/dl Osmolality L 273.2 280-300 mOsm/L Anion GAP 9.4 8-16 BUN/Creatinine Ratio L 6.7 10-20 Estimated GFR L 58 >=60 mL/min/1.7 :45:00 Result Normal Range Units Sodium 135 134-145 mEq/l Potassium 3.7 3.5-5.1 mEq/l Chloride 99 98-107 mEq/l CO2 H 28.1 22-28 mEq/l Glucose 99 70-105 mg/dl BUN 7 7-18 mg/dl Creatinine H 1.07 0.6-1.0 mg/dl Triglycerides H 239 35-160 mg/dl Cholesterol H 320 120-200 mg/dl HDL Cholesterol 51 39-96 mg/dl VLDL Cholesterol H 48 5-40 mg/dl LDL Cholesterol H 239 30-100 mg/dl Calcium 9.0 8.4-10.2 mg/dl TP - Total Protein 6.9 6.0-8.3 g/dl Albumin L 3.1 3.5-5 g/dl Bilirubin - Total 0.2 0.1-1.0 mg/dl AST 40 10-42 IU/L ALT 35 12-65 IU/L ALP H 103 25-72 IU/L Osmolality L 268.1 280-300 mOsm/L Albumin/Globulin Ratio 0.8 0-8 Anion GAP L 7.9 8-16 BUN/Creatinine Ratio L 6.5 10-20 Estimated GFR L 56 >=60 mL/min/1.7 [id number]:10:00 Result Normal Range Units Sodium L 133 134-145 mEq/l Potassium 3.8 3.5-5.1 mEq/l Chloride L 97 98-107 mEq/l CO2 25.8 22-28 mEq/l Glucose H 210 70-105 mg/dl BUN 11 7-18 mg/dl Creatinine H 1.20 0.6-1.0 mg/dl Calcium 8.9 8.4-10.2 mg/dl TP - Total Protein 7.6 6.0-8.3 g/dl Albumin L 3.2 3.5-5 g/dl Bilirubin - Total 0.3 0.1-1.0 mg/dl AST H 43 10-42 IU/L ALT 41 12-65 IU/L ALP H 109 25-72 IU/L Osmolality L 272.0 280-300 mOsm/L Albumin/Globulin Ratio 0.7 0-8 Anion GAP 10.2 8-16 BUN/Creatinine Ratio L 9.2 10-20 Estimated GFR L 49 >=60 mL/min/1.7 [id number]:45:00 Result Normal Range Units Sodium L 130 134-145 mEq/l Potassium 3.6 3.5-5.1 mEq/l Chloride L 94 98-107 mEq/l CO2 24.9 22-28 mEq/l Glucose H 260 70-105 mg/dl BUN 10 7-18 mg/dl Creatinine H 1.33 0.6-1.0 mg/dl Calcium 8.8 8.4-10.2 mg/dl TP - Total Protein 7.4 6.0-8.3 g/dl Albumin L 3.1 3.5-5 g/dl Bilirubin - Total 0.4 0.1-1.0 mg/dl AST H 43 10-42 IU/L ALT 42 12-65 IU/L ALP H 109 25-72 IU/L Osmolality L 268.8 280-300 mOsm/L Albumin/Globulin Ratio 0.7 0-8 Anion GAP 11.1 8-16 BUN/Creatinine Ratio L 7.5 10-20 Estimated GFR L 44 >=60 mL/min/1.7 [id number]:25:00 Result Normal Range Units Sodium L 129 134-145 mEq/l Potassium 4.1 3.5-5.1 mEq/l Chloride L 94 98-107 mEq/l CO2 25.1 22-28 mEq/l Glucose H 296 70-105 mg/dl BUN 8 7-18 mg/dl Creatinine H 1.28 0.6-1.0 mg/dl Calcium 9.5 8.4-10.2 mg/dl TP - Total Protein H 8.4 6.0-8.3 g/dl Albumin L 3.4 3.5-5 g/dl Bilirubin - Total 0.4 0.1-1.0 mg/dl AST 34 10-42 IU/L ALT 38 12-65 IU/L ALP H 136 25-72 IU/L Osmolality L 268.2 280-300 mOsm/L Albumin/Globulin Ratio 0.7 0-8 Anion GAP 9.9 8-16 BUN/Creatinine Ratio L 6.2 10-20 Estimated GFR L 46 >=60 mL/min/1.7 Lactic Acid 1.9 0.4-2.0 mmol/L Hematology [id number]:00:00 Result Normal Range Units WBC H 14.5 4.8-10.8 103/uL RBC 4.3 4.2-5.4 106/uL HGB 14.3 12.0-16.0 g/dl HCT 41.4 36.9-47.0 % MCV 96.5 81-99 FL MCH H 33.3 27-31 pg MCHC 34.5 33-37 g/dl RDW 14.9 11.5-15.5 % PLT 306 130-400 103/uL MPV 10.3 7.3-10.4 FL Segs 60.0 40-70 % Lymphs 29.0 20-40 % Dane 6.0 0-10 % Eos 3.0 0-7 % Baso 2.0 0-2 % [id number]:50:00 Result Normal Range Units WBC H 15.6 4.8-10.8 103/uL RBC 4.4 4.2-5.4 106/uL HGB 14.3 12.0-16.0 g/dl HCT 42.3 36.9-47.0 % MCV 97.0 81-99 FL MCH H 32.8 27-31 pg MCHC 33.8 33-37 g/dl RDW 15.0 11.5-15.5 % PLT 339 130-400 103/uL MPV 10.2 7.3-10.4 FL Segs 54.0 40-70 % Bands 2.0 0-5 % Lymphs 40.0 20-40 % Dane 2.0 0-10 % Eos 2.0 0-7 % [id number]:55:00 Result Normal Range Units WBC H 15.3 4.8-10.8 103/uL RBC 4.4 4.2-5.4 106/uL HGB 14.6 12.0-16.0 g/dl HCT 42.8 36.9-47.0 % MCV 96.6 81-99 FL MCH H 33.0 27-31 pg MCHC 34.1 33-37 g/dl RDW 14.9 11.5-15.5 % PLT 357 130-400 103/uL MPV 10.1 7.3-10.4 FL [id number]:00:00 Result Normal Range Units WBC H 13.5 4.8-10.8 103/uL RBC 4.4 4.2-5.4 106/uL HGB 14.2 12.0-16.0 g/dl HCT 42.1 36.9-47.0 % MCV 95.7 81-99 FL MCH H 32.3 27-31 pg MCHC 33.7 33-37 g/dl RDW 14.5 11.5-15.5 % PLT 337 130-400 103/uL MPV 10.0 7.3-10.4 FL Neutro % 56.9 40-70 % Lymph % 34.2 20-40 % Dane % 6.4 0-10.0 % Eos % 2.1 0-7.0 % Baso % 0.4 0-2 % Neutro # H 7.7 1.5-7.5 103/uL Lymph # H 4.6 0.9-4.0 103/uL Dane # H 0.9 0-0.8 103/uL Eos # 0.3 0-0.6 103/uL Baso # 0.1 0-0.1 103/uL [id number]:42:00 Result Normal Range Units WBC H 13.6 4.8-10.8 103/uL RBC 4.2 4.2-5.4 106/uL HGB 14.0 12.0-16.0 g/dl HCT 40.1 36.9-47.0 % MCV 95.0 81-99 FL MCH H 33.2 27-31 pg MCHC 34.9 33-37 g/dl RDW 14.5 11.5-15.5 % PLT 278 130-400 103/uL MPV H 10.6 7.3-10.4 FL [id number]:45:00 Result Normal Range Units WBC H 14.6 4.8-10.8 103/uL RBC L 4.1 4.2-5.4 106/uL HGB 13.2 12.0-16.0 g/dl HCT 37.8 36.9-47.0 % MCV 93.3 81-99 FL MCH H 32.6 27-31 pg MCHC 34.9 33-37 g/dl RDW 14.5 11.5-15.5 % PLT 250 130-400 103/uL MPV H 11.2 7.3-10.4 FL Segs 62.0 40-70 % Bands 1.0 0-5 % Lymphs 34.0 20-40 % Dane 3.0 0-10 % [id number]:10:00 Result Normal Range Units WBC H 13.2 4.8-10.8 103/uL RBC L 3.9 4.2-5.4 106/uL HGB 12.7 12.0-16.0 g/dl HCT L 36.5 36.9-47.0 % MCV 93.6 81-99 FL MCH H 32.6 27-31 pg MCHC 34.8 33-37 g/dl RDW 13.7 11.5-15.5 % PLT 288 130-400 103/uL MPV 10.4 7.3-10.4 FL Segs 56.0 40-70 % Bands 1.0 0-5 % Lymphs 38.0 20-40 % Dane 2.0 0-10 % Eos 2.0 0-7 % Baso 1.0 0-2 % [id number]:45:00 Result Normal Range Units WBC H 13.3 4.8-10.8 103/uL RBC L 3.8 4.2-5.4 106/uL HGB 12.5 12.0-16.0 g/dl HCT L 35.4 36.9-47.0 % MCV 93.9 81-99 FL MCH H 33.2 27-31 pg MCHC 35.3 33-37 g/dl RDW 13.6 11.5-15.5 % PLT 268 130-400 103/uL MPV 10.2 7.3-10.4 FL Segs 53.0 40-70 % Bands 1.0 0-5 % Lymphs H 41.0 20-40 % Dane 4.0 0-10 % Eos 1.0 0-7 % [id number]:25:00 Result Normal Range Units WBC H 20.8 4.8-10.8 103/uL RBC 4.5 4.2-5.4 106/uL HGB 14.9 12.0-16.0 g/dl HCT 41.8 36.9-47.0 % MCV 93.1 81-99 FL MCH H 33.2 27-31 pg MCHC 35.6 33-37 g/dl RDW 14.0 11.5-15.5 % PLT 338 130-400 103/uL MPV 10.2 7.3-10.4 FL Segs 68.0 40-70 % Lymphs 28.0 20-40 % Dane 2.0 0-10 % Eos 1.0 0-7 % Baso 1.0 0-2 % Microbiology [id number]:44:00 Result Normal Range Units MRSA Screen See Comments Plate Date and Time 10/09/2014 09:37 SourceNOSE CULTURE REPORT Negative - No MRSA Colonization Day 1 Release Date/Time: 10/13/2014 07:42 CULTURE REPORT Negative - No MRSA Colonization Day 2 Release Date/Time: 10/14/2014 07:32 Special Chemistry [id number]:20:00 Result Normal Range Units Hemoglobin A1C H 10.3 4.5-6.2 % Urine Chemistry [id number]:00:00 Result Normal Range Units Creatinine - Urine 131.54 15.0-327 mg/dl Microalbumin 160.2 mg/l Reference Range Not Established Results reported on diluted specimen Microalbumin Creatinine Ratio H 122 0-30 mcg/mg Cre Reference Lab ([facility]) [id number]:04:00 Result Normal Range Units Influenza A & B, Rapid Negative Negative Body Fluid [id number]:40:00 Result Normal Range Units pH 5.5 4.5-8.0 [id number]:50:00 Result Normal Range Units pH 7.5 4.5-8.0 [id number]:40:00 Result Normal Range Units pH 6.5 4.5-8.0 Cardiac [id number]:00:00 Result Normal Range Units CK 113 26-192 IU/L [id number]:04:00 Result Normal Range Units CK H 206 26-192 IU/L CKMB 2.5 0-3.6 ng/ml Patient samples may contain heterophilic [...] patient history should be interpreted with caution. Thyroid Testing [id number]:45:00 Result Normal Range Units TSH H 38.77 0.36-3.74 uIU/mL Radiology Results [id number]:00:00 Result Normal Range Units MPV 10.3 7.3-10.4 FL [id number]:50:00 Result Normal Range Units MPV 10.2 7.3-10.4 FL [id number]:48:00 Chest XRay - Port - 1 View PACs Image DATE OF EXAM: Oct 15 2014 RAD [id number] 1 VIEW PORT : RADIOLOGY REPORT DATE OF SERVICE: 10/15/14 HISTORY: Leukocytosis PORTABLE AP CHEST 1327 HOURS The lungs are clear. There are no infiltrates. Cardiac size is in the upper range of normal. The pulmonary vessels are normal. There is no pleural effusion. IMPRESSION: Cardiac size in the upper range of normal. No acute chest abnormality. MD BRANDON Sultana/ak10/15/2014 13:43:00 / 10/15/2014 13:52:47 cc:Fan Brown PA-C This document has been electronically Signed by: On: DATE OF EXAM: Oct 15 2014 RAD [id number] 1 VIEW PORT : RADIOLOGY REPORT DATE OF SERVICE: 10/15/14 HISTORY: Leukocytosis PORTABLE AP CHEST 1327 HOURS The lungs are clear. There are no infiltrates. Cardiac size is in the upper range of normal. The pulmonary vessels are normal. There is no pleural effusion. IMPRESSION: Cardiac size in the upper range of normal. No acute chest abnormality. MD BRANDON Sultana/ak10/15/2014 13:43:00 / 10/15/2014 13:52:47 cc:Fan Brown PA-C This document has been electronically Signed by: LUISA RIVERA On: Oct 15 20142:48P UTI HYPONATREMIA WEAKNESS HYPERTENSIVE CRISIS Result Amended on 2014-10-15 at 14:48:17. Previous status was MD. UTI HYPONATREMIA WEAKNESS HYPERTENSIVE CRISIS [id number]:55:00 Result Normal Range Units MPV 10.1 7.3-10.4 FL [id number]:00:00 Result Normal Range Units MPV 10.0 7.3-10.4 FL [id number]:42:00 Result Normal Range Units MPV H 10.6 7.3-10.4 FL [id number]:28:00 CAROTID DUPLEX PACs Image DATE OF EXAM: 2013 [id number] CAROTID DUPLEX SONO : RADIOLOGY REPORT DATE OF SERVICE: 10/09/14 HISTORY: Patient has right side weakness and aphasia with an infarct noted in the chris on the left on MRI study earlier the same day. CAROTID DOPPLER [id number] HOURS On the right there is apparent moderate plaque formation at the carotid bulb. There is some increased velocity of 160 cm/sec peak systolic velocity and 61 cm end-diastolic velocity in the proximal internal carotid. The ratio of internal carotid velocity divided by common carotid velocity is 2.43. These findings suggest 60 to 70% stenosis which may be hemodynamically significant. On the left there is mild plaque formation in the bulb and internal carotid origin. No significant increase velocities or velocity ratios are seen on the left. There is likely 40% or less stenosis on the left. Right vertebral artery shows antegrade flow. The left vertebral artery is not visualized and there may be occlusion. IMPRESSION: 60 to 70% stenosis suggested on the right at the proximal internal carotid location. Less than 40% stenosis on the left. Absent left vertebral artery. DO SABRINA Ward/lisa 10/09/2014 14:00:00 / 10/09/2014 14:13:21 cc:Fan Brown PA-C This document has been electronically Signed by: On: DATE OF EXAM: 2013 [id number] CAROTID DUPLEX SONO : RADIOLOGY REPORT DATE OF SERVICE: 10/09/14 HISTORY: Patient has right side weakness and aphasia with an infarct noted in the chris on the left on MRI study earlier the same day. CAROTID DOPPLER [id number] HOURS On the right there is apparent moderate plaque formation at the carotid bulb. There is some increased velocity of 160 cm/sec peak systolic velocity and 61 cm end-diastolic velocity in the proximal internal carotid. The ratio of internal carotid velocity divided by common carotid velocity is 2.43. These findings suggest 60 to 70% stenosis which may be hemodynamically significant. On the left there is mild plaque formation in the bulb and internal carotid origin. No significant increase velocities or velocity ratios are seen on the left. There is likely 40% or less stenosis on the left. Right vertebral artery shows antegrade flow. The left vertebral artery is not visualized and there may be occlusion. IMPRESSION: 60 to 70% stenosis suggested on the right at the proximal internal carotid location. Less than 40% stenosis on the left. Absent left vertebral artery. DO SABRINA Ward/lisa 10/09/2014 14:00: / 10/09/2014 14:13:21 cc:Fan Brown PA-C This document has been electronically Signed by: MARLENA MCKEON DO On: Oct 11 20148:28A UTI HYPONATREMIA WEAKNESS HYPERTENSIVE CRISIS Result Amended on 2014-10-11 at 08:28:29. Previous status was MD. UTI HYPONATREMIA WEAKNESS HYPERTENSIVE CRISIS MRA BRAIN W/O CONT PACs Image DATE OF EXAM: 2013 MRI 0242-MRA BRAIN WO CONTRAST : RADIOLOGY REPORT DATE OF SERVICE: 10/09/14 HISTORY: Right sided weakness and trouble, aphasia MRA OF THE BRAIN 1010 HOURS [id number] images were obtained. 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 The right anterior cerebral artery is supplied by the anterior communicating artery off of the anterior left cerebral artery. Otherwise, no vascular abnormality is seen. There is no evidence of aneurysm. No strictures are identified. 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 Otherwise negative study. DO SABRINA Ward/lisa 10/09/2014 11:51:00 / 10/09/2014 12:49:17 cc:Fan Brown PA-C This document has been electronically Signed by: On: DATE OF EXAM: 2013 MRI 0242-MRA BRAIN WO CONTRAST : RADIOLOGY REPORT DATE OF SERVICE: 10/09/14 HISTORY: Right sided weakness and trouble, aphasia MRA OF THE BRAIN 1010 HOURS Ujzr-pb-[id number] images were obtained. 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 The right anterior cerebral artery is supplied by the anterior communicating artery off of the anterior left cerebral artery. Otherwise, no vascular abnormality is seen. There is no evidence of aneurysm. No strictures are identified. 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 Otherwise negative study. DO SABRINA Ward/lisa 10/09/2014 11:51:00 / 10/09/2014 12:49:17 cc:Fan Brown PA-C This document has been electronically Signed by: MARLENA MCKEON DO On: Oct 11 20148:28A UTI HYPONATREMIA WEAKNESS HYPERTENSIVE CRISIS Result Amended on 2014-10-11 at 08:28:08. Previous status was MD. UTI HYPONATREMIA WEAKNESS HYPERTENSIVE CRISIS MRI BRAIN W/WO CONT PACs Image DATE OF EXAM: 2013 MRI 0036-MRI BRAIN W/WO CONTRAST : RADIOLOGY REPORT DATE OF SERVICE: 10/09/14 HISTORY: Patient has right side weakness and aphagia. MAGNETIC RESONANCE IMAGING BRAIN WITH AND WITHOUT CONTRAST 1010 HOURS There is abnormal fairly prominent signal in the left chris. This consists of mild increased signal on T2 weighted images, mild decreased signal on T1-weighted images and moderate to prominent increased signal on diffusion weighted images as well as FLAIR images. This is somewhat discoid being longer in the anterior-posterior plane than transverse plane. This area measures 2 cm maximum AP dimension approximately 9 to 10 mm maximum transverse dimension. Cephalocaudal measurement is approximately 1 cm. 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 The remainder of the brain has normal signal. No secondary areas of abnormal signal are seen. Flow voids of the major vessels are intact. There is no mass effect. Cranial nerves VII and VIII are symmetric bilaterally. No abnormal enhancement of the abnormal lesion in the chris is seen. The sinuses and orbits are normal. IMPRESSION: Abnormal study concerning the left chris with probable infarct of acute or subacute nature present as described in body of report. Remainder of brain is negative. These findings were telephoned to Shauna Brown at 1145 hours on 10/09/2014. DO SABRINA Ward/lisa 10/09/2014 11:51:00 / 10/09/2014 12:46:27 cc:Fan Brown PA-C This document has been electronically Signed by: On: DATE OF EXAM: 2013 MRI 0036-MRI BRAIN W/WO CONTRAST : RADIOLOGY REPORT DATE OF SERVICE: 10/09/14 HISTORY: Patient has right side weakness and aphagia. MAGNETIC RESONANCE IMAGING BRAIN WITH AND WITHOUT CONTRAST 1010 HOURS There is abnormal fairly prominent signal in the left hcris. This consists of mild increased signal on T2 weighted images, mild decreased signal on T1-weighted images and moderate to prominent increased signal on diffusion weighted images as well as FLAIR images. This is somewhat discoid being longer in the anterior-posterior plane than transverse plane. This area measures 2 cm maximum AP dimension approximately 9 to 10 mm maximum transverse dimension. Cephalocaudal measurement is approximately 1 cm. 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 The remainder of the brain has normal signal. No secondary areas of abnormal signal are seen. Flow voids of the major vessels are intact. There is no mass effect. Cranial nerves VII and VIII are symmetric bilaterally. No abnormal enhancement of the abnormal lesion in the chris is seen. The sinuses and orbits are normal. IMPRESSION: Abnormal study concerning the left chris with probable infarct of acute or subacute nature present as described in body of report. Remainder of brain is negative. These findings were telephoned to Shauna Brown at 1145 hours on 10/09/2014. DO SABRINA Ward/lisa 10/09/2014 11:51:00 / 10/09/2014 12:46:27 cc:Fan Brown PA-C This document has been electronically Signed by: MARLENA MCKEON DO On: Oct 11 20148:28A UTI HYPONATREMIA WEAKNESS HYPERTENSIVE CRISIS Result Amended on 2014-10-11 at 08:28:06. Previous status was MD. UTI HYPONATREMIA WEAKNESS HYPERTENSIVE CRISIS Chest XRay - Port - 1 View PACs Image DATE OF EXAM: 2013 RAD 0292-CHEST 1 VIEW PORT : RADIOLOGY REPORT DATE OF SERVICE: 10/09/14 HISTORY: Patient has uncontrolled hypertension. PORTABLE ONE VIEW CHEST 1027 HOURS The patient took poor inspiration and this degrades study significantly. Heart and mediastinum are normal. Lungs are clear. No effusion is seen. IMPRESSION: Negative study, but degraded by poor inspiration. DO SABRINA Ward/lisa 10/09/2014 11:53:00 / 10/09/2014 12:51:46 cc:Fan Brown PA-C This document has been electronically Signed by: On: DATE OF EXAM: 2013 RAD 0292-CHEST 1 VIEW PORT : RADIOLOGY REPORT DATE OF SERVICE: 10/09/14 HISTORY: Patient has uncontrolled hypertension. PORTABLE ONE VIEW CHEST 1027 HOURS The patient took poor inspiration and this degrades study significantly. Heart and mediastinum are normal. Lungs are clear. No effusion is seen. IMPRESSION: Negative study, but degraded by poor inspiration. Marlena Mckeon DO /ak 10/09/2014 11:53:00 / 10/09/2014 12:51:46 cc:Fan Brown PA-C This document has been electronically Signed by: MARLENA MCKEON DO On: Oct 11 20148:28A UTI HYPONATREMIA WEAKNESS HYPERTENSIVE CRISIS Result Amended on 2014-10-11 at 08:28:14. Previous status was MD. UTI HYPONATREMIA WEAKNESS HYPERTENSIVE CRISIS [id number]:45:00 Result Normal Range Units MPV H 11.2 7.3-10.4 FL [id number]:10:00 Result Normal Range Units MPV 10.4 7.3-10.4 FL [id number]:37:00 CT HEAD W/O CONT PACs Image DATE OF EXAM: 2013 [id number] HEAD WO CONTRAST : RADIOLOGY REPORT DATE OF SERVICE: 10/08/14 HISTORY: Patient has right sided weakness. CT HEAD WITHOUT [id number] HOURS Axial images were obtained from base of skull to vertex. No intracranial hemorrhage is seen. Ventricular system is normal. There is no mass effect. Benign calcification is seen in basal ganglia. The visualized sinuses, orbits, and bony structures appear normal. IMPRESSION: Negative study of the brain. Marlena Mckeon DO /ak 10/08/2014 07:19:00 / 10/08/2014 08:42:36 cc:Fan Brown PA-C This document has been electronically Signed by: On: DATE OF EXAM: 2013 [id number] HEAD WO CONTRAST : RADIOLOGY REPORT DATE OF SERVICE: 10/08/14 HISTORY: Patient has right sided weakness. CT HEAD WITHOUT [id number] HOURS Axial images were obtained from base of skull to vertex. No intracranial hemorrhage is seen. Ventricular system is normal. There is no mass effect. Benign calcification is seen in basal ganglia. The visualized sinuses, orbits, and bony structures appear normal. IMPRESSION: Negative study of the brain. DO SABRINA Ward/ak 10/08/2014 07:19:00 / 10/08/2014 08:42:36 cc:Fan Brown PA-C This document has been electronically Signed by: MARLENA MCKEON DO On: 20131:37P UTI HYPONATREMIA WEAKNESS Result Amended on 2014-10-08 at 13:37:38. Previous status was MD. UTI HYPONATREMIA WEAKNESS [id number]:35:00 Chest X-Ray - 2 View PACs Image DATE OF EXAM: 2013 RAD 0300-CHEST XRAY 2 VIEW : RADIOLOGY REPORT DATE OF SERVICE: 10/07/2014 HISTORY: Patient has weakness and cough. CHEST 2 VIEWS 0930 HOURS Heart and mediastinum are normal.Lungs are clear.No effusion is seen. IMPRESSION: Negative study of the chest unchanged from 11/21/12. DO SABRINA Ward/ 10/07/2014 10:48:00 / 10/07/2014 21:25:01 cc:Fan Brown PA-C This document has been electronically Signed by: On: DATE OF EXAM: 2013 RAD 0300-CHEST XRAY 2 VIEW : RADIOLOGY REPORT DATE OF SERVICE: 10/07/2014 HISTORY: Patient has weakness and cough. CHEST 2 VIEWS 0930 HOURS Heart and mediastinum are normal.Lungs are clear.No effusion is seen. IMPRESSION: Negative study of the chest unchanged from 11/21/12. DO SBARINA Ward/ 10/07/2014 10:48:00 / 10/07/2014 21:25:01 cc:Fan Brown PA-C This document has been electronically Signed by: MARLENA MCKEON DO On: 20131:35P UTI HYPONATREMIA WEAKNESS Result Amended on 2014-10-08 at 13:35:55. Previous status was MD. UTI HYPONATREMIA WEAKNESS [id number]:45:00 Result Normal Range Units MPV 10.2 7.3-10.4 FL [id number]:25:00 Result Normal Range Units MPV 10.2 7.3-10.4 [place] [facility] ([facility]) [id number]:00:00 Result Normal Range Units Creatinine - Urine 131.54 15.0-327 mg/dl History of procedures No procedures recorded for this patient visit. Functional status Functional Status Finding Observation Time Hearing Prob Loc bilateral :45 Vision Problems no :45 Ambulation Asst Dev none :45 Range of Motion full :45 Muscle Strength RUE 2 passive ROM :45 Muscle Strength RLE 2 passive ROM :45 Muscle Strength LUE 5 ROM full resist :45 Muscle Strength LLE 5 ROM full resist :45 Transfers lift :45 Ambulation none :45 Balance unsteady :45 Bathing Assistance none :45 Eating Assistance minimal :51 Dressing Assistance none :45 Toileting Assistance none :45 Transfer Assistance minimal :45 Decline Slf Care/Mob no :45 Phys Cond Stable yes :45 Cognitive Status Finding Observation Time Oriented To Date [address] Yes :[address] 5 Yes :45 Name 3 Objects 3 Yes :45 Name Object in Rm 2 Yes :45 Recall 3 Objects 3 Yes :45 Repeats a Phrase 1 Yes :45 Follows Verbal Direc 3 Yes :45 Follows Written Dire 1 Yes :45 Write a Sentance 1 Yes :45 Draw an Object 1 Yes :45 Mini Mental Total 25 points :45 Less than 20 Phys not applicable :45 Learning Ability comprehends well :45 Neurological yes :45 Psychological no :45 Physical yes :45 Hearing no :45 Maintainer Plant Needed no :45 Sign Language no [id number]:45 Emotional yes [id number]:45 Vision no [id number]:45 [place] no [id number]:45 Financial no :45 Vital signs Type Value Date Respiration Rate 20breaths per minute :46 Pulse 81beats per minute :46 Oxygen Saturation 94% :46 BP Systolic 151mmHg 98-23-304027:46 BP Diastolic 80mmHg 71-65-535508:46 Temperature 97.2F :46 Height 61inches 97-17-142626:56 Weight 229.7LB 58-54-789208:57 Social history Type Value Smoking Status FORMER SMOKER Treatment Plan No treatment plan text is available for this visit. Hospital discharge instructions Discharge Date/Time 10-19-2014 10:40 Accompanied By Daughter Relationship child Dismissal Condition good Disposition on DC other (specify) Comment: [facility] Valuables yes Valuable Type other (specify) Comment: clothes from home Valuables Returned T patient DC Inst/Educ Give yes Comment: Report given to [facility] nurse Kim Vaccines Ord Given no Comment: Patient refused any vaccines Diet Explained yes Follow up appt other (specify) Comment: Follow up per [facility]
--- OUTSIDE RECORDS SUMMARY | 2018-07-26 14:35 | XMS REPORT ---
Author Author [facility] Medical Staff Organization [facility] Address [address], [place] [id number] Phone [phone] Care Team Providers Care Mechanical Test Technician Name Role Phone FAN SALCEDO PP [phone] Summary purpose TRANSITION OF CARE AUTO GENERATION Chief Complaint and Reason for Visit Admit Diagnosis 1 DYSURIA Problem list No authorized problems tracked for continuity of care are available for this visit. Encounters No authorized problems tracked for encounter diagnoses are available for this visit. Medications No home medications recorded for this patient visit Allergies, adverse reactions, alerts Allergen Category Ingredient Status Reaction Severity Onset Penicillins Drug Allergy Penicillins Confirmed or Verified Immunizations No immunizations recorded for this patient visit Relevant diagnostic tests and/or laboratory data RESULTS Routine Urinalysis [id number]:10:00 Result Normal Range Units Color YELLOW Clarity Cloudy Specific [place] 1.015 1.003-1.035 pH 6.0 4.5-8.0 Glucose NEGATIVE Bilirubin NEGATIVE Ketones NEGATIVE Protein NEGATIVE Urobilinogen 0.2 0-0.2 E.U./dL Nitrites NEGATIVE Blood NEGATIVE Leukocytes 1+ WBCs Too numerous to count RBCs 0-5 Squamous Epithelial 1+ Bacteria 3+ Routine Cultures [id number]:10:00 Urine Culture Plate Date and Time 12/13/2014 08:16 SourceURINE CULTURE REPORT >100,000 colonies/ml Mixed Gram Pos [place] Release Date/Time: 12/14/2014 09:46 CULTURE REPORT >100,000 colonies/ml Mixed Gram Pos [place] Release Date/Time: 12/15/2014 07:38 Body Fluid [id number]:10:00 Result Normal Range Units pH 6.0 4.5-8.0 History of procedures Procedure Code Code Type Description Date Performed Performing Physician 60048 CPT-4 URINALYSIS, AUTO W/SCOPE 12-13-2014 FAN PLA 54822 CPT-4 URINE CULTURE/COLONY COUNT 12-13-2014 FAN PAL Functional status No functional or [...]
--- OUTSIDE RECORDS SUMMARY | 2018-07-26 14:36 | XMS REPORT ---
Author [facility] Medical Staff Organization [facility] Address [address] [place] [id number] Phone [phone] Care Team Providers Care Subcontract Manager Name Role Phone FAN SALCEDO PP [phone] Summary purpose TRANSITION OF CARE AUTO GENERATION Chief Complaint and Reason for Visit Admit Diagnosis 1 UTI HYPONATREMIA WEAKNESS Admit Diagnosis 2 HYPERTENSIVE CRISIS Problem list [...] tests and/or laboratory data RESULTS Routine Urinalysis [id number]:40:00 Result Normal Range Units Color YELLOW Clarity Slighty cloudy Specific [place] 1.025 1.003-1.035 pH 5.5 4.5-8.0 Glucose NEGATIVE Bilirubin NEGATIVE Ketones NEGATIVE Protein NEGATIVE Urobilinogen 0.2 0-0.2 E.U./dL Nitrites NEGATIVE Blood NEGATIVE Leukocytes TRACE WBCs 20-30 RBCs 0-5 Squamous Epithelial Few Bacteria 1+ Hyaline Casts 1+ 60-62-458180:50:00 Result Normal Range Units Color YELLOW Clarity Slighty cloudy Specific [place] 1.010 1.003-1.035 pH 7.5 4.5-8.0 Glucose NEGATIVE Bilirubin NEGATIVE Ketones NEGATIVE Protein NEGATIVE Urobilinogen 0.2 0-0.2 E.U./dL Nitrites NEGATIVE Blood NEGATIVE Leukocytes 3+ WBCs 20-30 RBCs No RBC's Seen. Squamous Epithelial 2+ Bacteria 2+ Trichomonas 2+ [id number]:40:00 Result Normal Range Units Color YELLOW Clarity Hazy Specific [place] 1.010 1.003-1.035 pH 6.5 4.5-8.0 Glucose NEGATIVE Bilirubin NEGATIVE Ketones NEGATIVE Protein TRACE Urobilinogen 0.2 0-0.2 E.U./dL Nitrites NEGATIVE Blood TRACE Leukocytes 3+ WBCs Too numerous to count RBCs 0-5 Squamous Epithelial 1+ Bacteria 1+ Trichomonas Occasional Culture Set Blood Cultures [id number]:20:00 Blood Culture Plate Date and Time 10/07/2014 13:25 SourceBLOOD CULTURE REPORT NoGrowth at 1 day. Unless otherwise notified. Final report in 5 Days. Release Date/Time: 10/08/2014 11:22 CULTURE REPORT No growth in 5 days. Release Date/Time: 10/13/2014 07:38 [id number]:04:00 Blood Culture Plate Date and Time 10/07/2014 13:25 SourceBLOOD CULTURE REPORT NoGrowth at 1 day. Unless otherwise notified. Final report in 5 Days. Release Date/Time: 10/08/2014 11:21 CULTURE REPORT No growth in 5 days. Release Date/Time: 10/13/2014 07:37 Routine Cultures [id number]:40:00 Urine Culture Plate Date and Time 10/17/2014 13:47 SourceURINE CULTURE REPORT No Growth After 24 Hours Release Date/Time: 10/18/2014 07:22 CULTURE REPORT No Growth After 48 Hours Release Date/Time: 10/19/2014 07:39 [id number]:50:00 Urine Culture Plate Date and Time 10/11/2014 21:55 SourceURINE CULTURE REPORT Large Amount Possible Contamination No Further Work Up Release Date/Time: 10/13/2014 08:29 [id number]:40:00 Urine Culture Plate Date and Time 10/07/2014 12:56 SourceURINE CULTURE REPORT >100,000 colonies/ml Mixed Gram Pos [place] Release Date/Time: 10/08/2014 07:36 CULTURE REPORT >100,000 colonies/ml Mixed Gram Pos [place] Release Date/Time: 10/09/2014 07:39 Chemistry [id number]:00:00 Result Normal Range Units Sodium L 132 [...] 10-20 Estimated GFR L 43 >=60 mL/min/1.7 [id number]:50:00 Result Normal Range Units Sodium L 133 [...] 10-20 Estimated GFR L 39 >=60 mL/min/1.7 [id number]:55:00 Result Normal Range Units Sodium L 132 134-145 mEq/l Potassium 3.8 3.5-5.1 mEq/l Chloride L 95 98-107 mEq/l CO2 27.8 22-28 mEq/l Glucose H 140 70-105 mg/dl BUN H 21 7-18 mg/dl Creatinine H 1.38 0.6-1.0 mg/dl Calcium 9.4 8.4-10.2 mg/dl Osmolality L 269.8 280-300 mOsm/L Anion GAP 9.2 8-16 BUN/Creatinine Ratio 15.2 10-20 Estimated GFR L 42 >=60 mL/min/1.7 67-46-302056:35:00 Result Normal Range Units Sodium 134 134-145 mEq/l Potassium 3.7 3.5-5.1 mEq/l Chloride L 97 98-107 mEq/l CO2 H 29.5 22-28 mEq/l Glucose 97 70-105 mg/dl BUN 16 7-18 mg/dl Creatinine H 1.32 0.6-1.0 mg/dl Calcium 9.5 8.4-10.2 mg/dl Osmolality L 269.3 280-300 mOsm/L Anion GAP L 7.5 8-16 BUN/Creatinine Ratio 12.1 10-20 Estimated GFR L 44 >=60 mL/min/1.7 [id number]:00:00 Result Normal Range Units Sodium L 133 [...] 10-20 Estimated GFR L 58 >=60 mL/min/1.7 [id number]:45:00 Result Normal Range Units Sodium 135 134-145 [...] 10-20 Estimated GFR L 56 >=60 mL/min/1.7 [id number]:10:00 Result Normal Range Units Sodium L 133 [...] 10-20 Estimated GFR L 49 >=60 mL/min/1.7 [id number]:45:00 Result Normal Range Units Sodium L 130 [...] 10-20 Estimated GFR L 44 >=60 mL/min/1.7 [id number]:25:00 Result Normal Range Units Sodium L 129 [...] mL/min/1.7 Lactic Acid 1.9 0.4-2.0 mmol/L Hematology [id number]:00:00 Result Normal Range Units WBC H 14.5 4.8-10.8 103/uL RBC 4.3 4.2-5.4 106/uL HGB 14.3 12.0-16.0 g/dl HCT 41.4 36.9-47.0 % MCV 96.5 81-99 FL MCH H 33.3 27-31 pg MCHC 34.5 33-37 g/dl RDW 14.9 11.5-15.5 % PLT 306 130-400 103/uL MPV 10.3 7.3-10.4 FL Segs 60.0 40-70 % Lymphs 29.0 20-40 % Randall 6.0 0-10 % Eos 3.0 0-7 % Baso 2.0 0-2 % :50:00 Result Normal Range Units WBC H 15.6 4.8-10.8 103/uL RBC 4.4 4.2-5.4 106/uL HGB 14.3 12.0-16.0 g/dl HCT 42.3 36.9-47.0 % MCV 97.0 81-99 FL MCH H 32.8 27-31 pg MCHC 33.8 33-37 g/dl RDW 15.0 11.5-15.5 % PLT 339 130-400 103/uL MPV 10.2 7.3-10.4 FL Segs 54.0 40-70 % Bands 2.0 0-5 % Lymphs 40.0 20-40 % Randall 2.0 0-10 % Eos 2.0 0-7 % [id number]:55:00 Result Normal Range Units WBC H 15.3 4.8-10.8 103/uL RBC 4.4 4.2-5.4 106/uL HGB 14.6 12.0-16.0 g/dl HCT 42.8 36.9-47.0 % MCV 96.6 81-99 FL MCH H 33.0 27-31 pg MCHC 34.1 33-37 g/dl RDW 14.9 11.5-15.5 % PLT 357 130-400 103/uL MPV 10.1 7.3-10.4 FL [id number]:00:00 Result Normal Range Units WBC H 13.5 4.8-10.8 103/uL RBC 4.4 4.2-5.4 106/uL HGB 14.2 12.0-16.0 g/dl HCT 42.1 36.9-47.0 % MCV 95.7 81-99 FL MCH H 32.3 27-31 pg MCHC 33.7 33-37 g/dl RDW 14.5 11.5-15.5 % PLT 337 130-400 103/uL MPV 10.0 7.3-10.4 FL Neutro % 56.9 40-70 % Lymph % 34.2 20-40 % Randall % 6.4 0-10.0 % Eos % 2.1 0-7.0 % Baso % 0.4 0-2 % Neutro # H 7.7 1.5-7.5 103/uL Lymph # H 4.6 0.9-4.0 103/uL Randall # H 0.9 0-0.8 103/uL Eos # 0.3 0-0.6 103/uL Baso # 0.1 0-0.1 103/uL [id number]:42:00 Result Normal Range Units WBC H 13.6 4.8-10.8 103/uL RBC 4.2 4.2-5.4 106/uL HGB 14.0 12.0-16.0 g/dl HCT 40.1 36.9-47.0 % MCV 95.0 81-99 FL MCH H 33.2 27-31 pg MCHC 34.9 33-37 g/dl RDW 14.5 11.5-15.5 % PLT 278 130-400 103/uL MPV H 10.6 7.3-10.4 FL 51-25-907587:45:00 Result Normal Range Units WBC H 14.6 4.8-10.8 103/uL RBC L 4.1 4.2-5.4 106/uL HGB 13.2 12.0-16.0 g/dl HCT 37.8 36.9-47.0 % MCV 93.3 81-99 FL MCH H 32.6 27-31 pg MCHC 34.9 33-37 g/dl RDW 14.5 11.5-15.5 % PLT 250 130-400 103/uL MPV H 11.2 7.3-10.4 FL Segs 62.0 40-70 % Bands 1.0 0-5 % Lymphs 34.0 20-40 % Randall 3.0 0-10 % [id number]:10:00 Result Normal Range Units WBC H 13.2 4.8-10.8 103/uL RBC L 3.9 4.2-5.4 106/uL HGB 12.7 12.0-16.0 g/dl HCT L 36.5 36.9-47.0 % MCV 93.6 81-99 FL MCH H 32.6 27-31 pg MCHC 34.8 33-37 g/dl RDW 13.7 11.5-15.5 % PLT 288 130-400 103/uL MPV 10.4 7.3-10.4 FL Segs 56.0 40-70 % Bands 1.0 0-5 % Lymphs 38.0 20-40 % Randall 2.0 0-10 % Eos 2.0 0-7 % Baso 1.0 0-2 % [id number]:45:00 Result Normal Range Units WBC H 13.3 4.8-10.8 103/uL RBC L 3.8 4.2-5.4 106/uL HGB 12.5 12.0-16.0 g/dl HCT L 35.4 36.9-47.0 % MCV 93.9 81-99 FL MCH H 33.2 27-31 pg MCHC 35.3 33-37 g/dl RDW 13.6 11.5-15.5 % PLT 268 130-400 103/uL MPV 10.2 7.3-10.4 FL Segs 53.0 40-70 % Bands 1.0 0-5 % Lymphs H 41.0 20-40 % Randall 4.0 0-10 % Eos 1.0 0-7 % [id number]:25:00 Result Normal Range Units WBC H 20.8 4.8-10.8 103/uL RBC 4.5 4.2-5.4 106/uL HGB 14.9 12.0-16.0 g/dl HCT 41.8 36.9-47.0 % MCV 93.1 81-99 FL MCH H 33.2 27-31 pg MCHC 35.6 33-37 g/dl RDW 14.0 11.5-15.5 % PLT 338 130-400 103/uL MPV 10.2 7.3-10.4 FL Segs 68.0 40-70 % Lymphs 28.0 20-40 % Randall 2.0 0-10 % Eos 1.0 0-7 % Baso 1.0 0-2 % Microbiology [id number]:44:00 Result Normal Range Units MRSA Screen See Comments Plate Date and Time 10/09/2014 09:37 SourceNOSE CULTURE REPORT Negative - No MRSA Colonization Day 1 Release Date/Time: 10/13/2014 07:42 CULTURE REPORT Negative - No MRSA Colonization Day 2 Release Date/Time: 10/14/2014 07:32 Special Chemistry [id number]:20:00 Result Normal Range Units Hemoglobin A1C H 10.3 4.5-6.2 % Urine Chemistry [id number]:00:00 Result Normal Range Units Creatinine - Urine 131.54 15.0-327 mg/dl Microalbumin 160.2 mg/l Reference Range Not Established Results reported on diluted specimen Microalbumin Creatinine Ratio H 122 0-30 mcg/mg Cre Reference Lab ([facility]) [id number]:04:00 Result Normal Range Units Influenza A & B, Rapid Negative Negative Body Fluid 56-59-554936:40:00 Result Normal Range Units pH 5.5 4.5-8.0 60-78-971122:50:00 Result Normal Range Units pH 7.5 4.5-8.0 :40:00 Result Normal Range Units pH 6.5 4.5-8.0 Cardiac :00:00 Result Normal Range Units CK 113 26-192 IU/L :04:00 Result Normal Range Units CK H 206 [...] should be interpreted with caution. Thyroid Testing 45-43-018100:45:00 Result Normal Range Units TSH H 38.77 0.36-3.74 uIU/mL Radiology Results [id number]:00:00 Result Normal Range Units MPV 10.3 7.3-10.4 FL 43-02-779936:50:00 Result Normal Range Units MPV 10.2 7.3-10.4 FL 54-11-983169:48:00 Chest XRay - Port - 1 View [...] normal. No acute chest abnormality. MD BRANDON Sultana/hi10/15/2014 13:43:00 / 10/15/2014 13:52:47 cc:Fan Brown PA-C [...] normal. No acute chest abnormality. MD BRANDON Sultana/hi10/15/2014 13:43:00 / 10/15/2014 13:52:47 cc:Fan Brown PA-C This document has been electronically Signed by: LUISA RIVERA On: Oct 15 20142:48P UTI HYPONATREMIA WEAKNESS HYPERTENSIVE CRISIS Result Amended on 2014-10-15 at 14:48:17. Previous status was [place]. 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 CAROTID DOPPLER [id number] HOURS On the right there is apparent [...] on 2014-10-11 at 08:28:29. Previous status was [place]. UTI HYPONATREMIA WEAKNESS HYPERTENSIVE CRISIS MRA BRAIN W/O CONT PACs Image DATE OF EXAM: 2013 MRI [id number] BRAIN WO CONTRAST : RADIOLOGY REPORT DATE OF SERVICE: 10/09/14 HISTORY: Right sided weakness and trouble, aphasia MRA OF THE BRAIN 1010 HOURS [id number] images were obtained. There is absence likely [...] right anterior cerebral artery. Otherwise negative study. Marlena Mckeon DO [facility] 10/09/2014 11:51:00 / 10/09/2014 12:49:17 cc:Fan Brown PA-C This document has been electronically Signed by: On: DATE OF EXAM: 2013 MRI [id number] BRAIN WO CONTRAST : RADIOLOGY REPORT DATE OF SERVICE: 10/09/14 HISTORY: Right sided weakness and trouble, aphasia MRA OF THE BRAIN 1010 HOURS [id number] images were obtained. There is absence likely [...] right anterior cerebral artery. Otherwise negative study. Marlena Mckeon DO [facility] 10/09/2014 11:51:00 / 10/09/2014 12:49:17 cc:Fan Brown PA-C This document has been electronically Signed by: MARLENA MCKEON DO On: Oct 11 20148:28A UTI HYPONATREMIA WEAKNESS HYPERTENSIVE CRISIS Result Amended on 2014-10-11 at 08:28:08. Previous status was [place]. UTI HYPONATREMIA WEAKNESS HYPERTENSIVE CRISIS MRI BRAIN [...] on 2014-10-11 at 08:28:06. Previous status was [place]. UTI HYPONATREMIA WEAKNESS HYPERTENSIVE CRISIS Chest XRay [...] degraded by poor inspiration. Marlena Mckeon DO [facility] 10/09/2014 11:53:00 / 10/09/2014 12:51:46 cc:Fan Brown [...] degraded by poor inspiration. Marlena Mckeon DO [facility] 10/09/2014 11:53:00 / 10/09/2014 12:51:46 cc:Fan Brown PA-C This document has been electronically Signed by: MARLENA MCKEON DO On: Oct 11 20148:28A UTI HYPONATREMIA WEAKNESS HYPERTENSIVE CRISIS Result Amended on 2014-10-11 at 08:28:14. Previous status was [place]. UTI HYPONATREMIA WEAKNESS HYPERTENSIVE CRISIS [id number]:45:00 Result Normal Range Units MPV H 11.2 7.3-10.4 FL [id number]:10:00 Result Normal Range Units MPV 10.4 7.3-10.4 FL 39-57-979154:37:00 CT HEAD W/O CONT PACs Image DATE OF EXAM: 2013 [id number] HEAD WO CONTRAST : RADIOLOGY REPORT DATE OF SERVICE: 10/08/14 HISTORY: Patient has right sided weakness. CT HEAD WITHOUT [id number] HOURS Axial images were obtained from base of skull to vertex. No intracranial hemorrhage is seen. Ventricular system is normal. There is no mass effect. Benign calcification is seen in basal ganglia. The visualized sinuses, orbits, and bony structures appear normal. IMPRESSION: Negative study of the brain. DO SABRINA Ward/hi 10/08/2014 07:19:00 / 10/08/2014 08:42:36 cc:Fan Brown PA-C This document has been electronically Signed by: On: DATE OF EXAM: 2013 [id number] HEAD WO CONTRAST : RADIOLOGY REPORT DATE OF SERVICE: 10/08/14 HISTORY: Patient has right sided weakness. CT HEAD WITHOUT [id number] HOURS Axial images were obtained from base of skull to vertex. No intracranial hemorrhage is seen. Ventricular system is normal. There is no mass effect. Benign calcification is seen in basal ganglia. The visualized sinuses, orbits, and bony structures appear normal. IMPRESSION: Negative study of the brain. DO SABRINA Ward/hi 10/08/2014 07:19:00 / 10/08/2014 08:42:36 cc:Fan Brown PA-C This document has been electronically Signed by: MARLENA MCKEON DO On: 20131:37P UTI HYPONATREMIA WEAKNESS Result Amended on 2014-10-08 at 13:37:38. Previous status was [place]. UTI HYPONATREMIA WEAKNESS 69-43-284248:35:00 Chest X-Ray - 2 View PACs Image [...] study of the chest unchanged from 11/21/12. Marlena Mckeon DO MW/gc 10/07/2014 10:48:00 / 10/07/2014 21:25:01 cc:Fan Brown PA-C This document has been electronically Signed by: MARLENA MCKEON DO On: 20131:35P UTI HYPONATREMIA WEAKNESS Result Amended on 2014-10-08 at 13:35:55. Previous status was [place]. UTI HYPONATREMIA WEAKNESS 06-29-856078:45:00 Result Normal Range Units MPV 10.2 7.3-10.4 FL 33-63-940398:25:00 Result Normal Range Units MPV 10.2 7.3-10.4 FL Reference Lab ([facility]) [id number]:00:00 Result Normal Range Units Creatinine - Urine [...] :45 Physical yes :45 Hearing no :45 Monotype Mechanic Needed no :45 Sign Language no :45 Emotional yes :45 Vision no :45 [place] no :45 Financial no :45 Vital signs Type Value Date Respiration Rate 20breaths per minute :46 Pulse 81beats per minute :46 Oxygen Saturation 94% :46 BP Systolic 151mmHg :46 BP Diastolic 80mmHg :46 Temperature 97.2F 00-74-605303:46 Height 61inches 58-49-629204:56 Weight 229.7LB 22-34-578392:57 Social history Type Value Smoking Status FORMER SMOKER Treatment Plan No treatment plan text is available for this visit. Hospital discharge instructions Discharge Date/Time 10-19-2014 10:40 Accompanied By Daughter Relationship child Dismissal Condition good Disposition on DC other (specify) Comment: [facility] Valuables yes Valuable Type other (specify) Comment: clothes from home Valuables Returned T patient DC Inst/Educ Give yes Comment: Report given to [facility] nurse Kim Vaccines Ord Given no Comment: Patient refused any vaccines Diet Explained yes Follow up appt other (specify) Comment: Follow up per [facility]
--- OUTSIDE RECORDS SUMMARY | 2018-07-26 14:37 | XMS REPORT | Continuity of Care Document ---
Demographics x Preferred Language Unknown Marital Status Unknown Jainism Affiliation Unknown Race Unknown Ethnic Group Unknown Author Author [facility] Organization [facility] Address Unknown Phone Unavailable Allergies Active Description Code Type Severity Reaction Onset Reported/Identified Relationship to Patient Clinical Status Yes Penicillins 476 Drug Allergy N/ A N/A Yes Levaquin Drug N/A [id number] Yes Levaquin Drug N/A N/A Yes penicillin 3 Drug N/A N/A Yes penicillin 3 Drug N/A unknown Yes Penicillins Drug Allergy N/A N/A 07/25/2013 Medications There is no data. Problems Date Dx Coded Attending Type Code Diagnosis Diagnosed By 07/25/2013 YANIQUE BERTRAND DO 250.00 DIABETES II CONTROLLED (UNCOMPLICATED) 07/25/2013 YANIQUE BERTRAND DO 401.1 HYPERTENSION, BENIGN ESSENTIAL 07/25/2013 YANIQUE BERTRAND DO 782.3 EDEMA 12/13/2014 FAN PAL 788.1 DYSURIA 04/20/2015 MARLENA PHILLIPS 682.6 CELLULITIS OF LEG 04/20/2015 MARLENA PHILLIPS 729.5 PAIN IN LIMB 04/29/2015 GILBERT SYLVESTER 682.9 CELLULITIS NOS 05/06/2015 GILBERT SYLVESTER 428.0 CHF NOS 05/17/2015 GILBERT SYLVESTER 599.0 URIN TRACT INFECTION NOS 05/17/2015 GILBERT SYLVESTER 787.03 VOMITING ALONE Procedures Code [place] [address] URINALYSIS, AUTO W/SCOPE 12/13/2014 54084 URINE CULTURE/COLONY COUNT 12/13/2014 85378 EMERGENCY DEPT VISIT 04/20/2015 77734 EMERGENCY DEPT VISIT 04/20/2015 A9270 NON-COVERED ITEM OR SERVICE 04/20/2015 93237 METABOLIC PANEL TOTAL CA 04/29/2015 49022 METABOLIC PANEL TOTAL CA 05/06/2015 56246 ROUTINE VENIPUNCTURE 05/17/2015 51214 COMPREHEN METABOLIC PANEL 05/17/2015 55931 URINALYSIS, AUTO W/SCOPE 05/17/2015 16243 COMPLETE CBC W/AUTO DIFF WBC 05/17/2015 94674 CULTURE AEROBIC IDENTIFY 05/17/2015 87483 URINE CULTURE/COLONY COUNT 05/17/2015 23436 MICROBE SUSCEPTIBLE, THADDEUS 05/17/2015 22714 EMERGENCY DEPT VISIT 05/17/2015 28239 EMERGENCY DEPT VISIT 05/17/2015 A9270 NON-COVERED ITEM OR SERVICE 05/17/2015 J7030 NORMAL SALINE SOLUTION INFUS 05/17/2015 83830 COMPREHEN METABOLIC PANEL 01/29/2016 38624 GLYCOSYLATED HEMOGLOBIN TEST 01/29/2016 50206 NATRIURETIC PEPTIDE 01/29/2016 78758 ASSAY THYROID STIM HORMONE 01/29/2016 87560 COMPLETE CBC W/AUTO DIFF WBC 01/29/2016 15469 LIPID PANEL 02/05/2016 59938 COMP SCREEN MAMMOGRAM ADD- ON 02/05/2016 53489 MAMMOGRAM, SCREENING 02/05/2016 55011 ROUTINE VENIPUNCTURE 02/10/2016 16066 METABOLIC PANEL TOTAL CA 02/10/2016 53699 ASSAY OF MAGNESIUM 02/10/2016 75615 COMPLETE CBC, AUTOMATED 02/10/2016 28822 FIBRIN DEGRADATION, QUANT 02/10/2016 23953 PROTHROMBIN TIME 02/10/2016 00259 THROMBOPLASTIN TIME, PARTIAL 02/10/2016 28611 EMERGENCY DEPT VISIT 02/10/2016 A9270 NON-COVERED ITEM OR SERVICE 02/10/2016 71370 ASSAY OF MAGNESIUM 02/17/2016 14234 EXTREMITY STUDY 02/18/2016 96253 METABOLIC PANEL TOTAL CA 02/28/2016 77888 ASSAY OF MAGNESIUM 02/28/2016 23218 METABOLIC PANEL TOTAL CA 03/18/2016 50768 ASSAY OF MAGNESIUM 03/18/2016 77751 X-RAY EXAM OF FOOT 03/25/2016 40911 EMERGENCY DEPT VISIT 03/25/2016 L1902 AFO ANKLE GAUNTLET 03/25/2016 03074 X-RAY EXAM OF ANKLE 04/07/2016 19913 X-RAY EXAM OF FOOT 04/07/2016 48903 EMERGENCY DEPT VISIT 05/04/2016 37837 METABOLIC PANEL TOTAL CA 05/06/2016 55397 GLYCOSYLATED HEMOGLOBIN TEST 05/06/2016 82797 ASSAY OF MAGNESIUM 05/06/2016 Results Test Result Range CBC WITH DIFF - 10/07/14 00:00 BASO 1.0 % 0-2 EOS 1.0 % 0-7 HCT 41.8 % 36.9-47.0 HGB 14.9 G/DL 12.0-16.0 LYMPH 28.0 % 20-40 MCH 33.2 PG 27-31 MCHC 35.6 G/DL 33-37 MCV 93.1 FL 81-99 MONO 2.0 % 0-10 MPV 10.2 FL 7.3-10.4 PLT 338 10^3u 130-400 RBC 4.5 10^6u 4.2-5.4 RDW 14.0 % 11.5-15.5 WBC 20.8 10^3u 4.8-10.8 SEGS 68.0 % 40-70 INFLU A B RAPID - 10/07/14 00:00 INFLRAP N Negative CMP - 10/07/14 00:00 ALB 3.4 G/DL 3.5-5 ALP 136 IU/L 25-72 ALT 38 IU/L 12-65 AST 34 IU/L 10-42 BCR 6.2 10-20 BUN 8 MG/DL 7-18 CA 9.5 MG/DL 8.4-10.2 CL 94 MEQ/L 98-107 CO2 25.1 MEQ/L 22-28 CREA 1.28 MG/DL 0.6-1.0 EGFR 46 eGFR >=60 GLU 296 MG/DL 70-105 K 4.1 MEQ/L 3.5-5.1 NA 129 MEQ/L 134-145 OSMSC 268.2 MOSML 280-300 TBIL 0.4 MG/DL 0.1-1.0 TP 8.4 G/DL 6.0-8.3 Albumin/Globulin Ratio 0.7 0-8 Anion Gap 9.9 8-16 LACTIC ACID - 10/07/14 00:00 LA 1.9 MMOLL 0.4-2.0 MONOSP - 10/07/14 00:00 MONOSP N Negative RAPID MYCOPLASMA - 10/07/14 00:00 RAPMYCO N Negative CK - 10/07/14 00:00 CK 206 IU/L 26-192 CKMB - 10/07/14 00:00 CKMB 2.5 NG/ML 0-3.6 TROP - 10/07/14 00:00 TROP < 0.04 NG/ML 0.0-0.4 UA - 10/07/14 00:00 PH 6.5 4.5-8.0 SG 1.010 1.003-1.035 UABILI NEGATIVE UABLD TRACE UACOLOR YEL UAGLU NEGATIVE UAKET NEGATIVE UALEUK 3+ UANIT NEGATIVE UAURO 0.2 0-0.2 CLARITY HAZY PROTEIN TRACE UA WBC TNTC UA RBC R05 SQUAMOUS EPITHELIAL CELLS 1+ BACTERIA 1+ TRICHOMONAS OCC HA1C - 10/07/14 00:00 HA1C 10.3 % 4.5-6.2 CBC WITH DIFF - 10/08/14 00:00 BANDS 1.0 % 0-5 EOS 1.0 % 0-7 HCT 35.4 % 36.9-47.0 HGB 12.5 G/DL 12.0-16.0 LYMPH 41.0 % 20-40 MCH 33.2 PG 27-31 MCHC 35.3 G/DL 33-37 MCV 93.9 FL 81-99 MONO 4.0 % 0-10 MPV 10.2 FL 7.3-10.4 PLT 268 10^3u 130-400 RBC 3.8 10^6u 4.2-5.4 RDW 13.6 % 11.5-15.5 WBC 13.3 10^3u 4.8-10.8 SEGS 53.0 % 40-70 CMP - 10/08/14 00:00 ALB 3.1 G/DL 3.5-5 ALP 109 IU/L 25-72 ALT 42 IU/L 12-65 AST 43 IU/L 10-42 BCR 7.5 10-20 BUN 10 MG/DL 7-18 CA 8.8 MG/DL 8.4-10.2 CL 94 MEQ/L 98-107 CO2 24.9 MEQ/L 22-28 CREA 1.33 MG/DL 0.6-1.0 EGFR 44 eGFR >=60 GLU 260 MG/DL 70-105 K 3.6 MEQ/L 3.5-5.1 NA 130 MEQ/L 134-145 OSMSC 268.8 MOSML 280-300 TBIL 0.4 MG/DL 0.1-1.0 TP 7.4 G/DL 6.0-8.3 Albumin/Globulin Ratio 0.7 0-8 Anion Gap 11.1 8-16 TSH - 10/08/14 00:00 TSH 38.77 UIUML 0.36-3.74 CBC WITH DIFF - 10/09/14 00:00 BANDS 1.0 % 0-5 BASO 1.0 % 0-2 EOS 2.0 % 0-7 HCT 36.5 % 36.9-47.0 HGB 12.7 G/DL 12.0-16.0 LYMPH 38.0 % 20-40 MCH 32.6 PG 27-31 MCHC 34.8 G/DL 33-37 MCV 93.6 FL 81-99 MONO 2.0 % 0-10 MPV 10.4 FL 7.3-10.4 PLT 288 10^3u 130-400 RBC 3.9 10^6u 4.2-5.4 RDW 13.7 % 11.5-15.5 WBC 13.2 10^3u 4.8-10.8 SEGS 56.0 % 40-70 CMP - 10/09/14 00:00 ALB 3.2 G/DL 3.5-5 ALP 109 IU/L 25-72 ALT 41 IU/L 12-65 AST 43 IU/L 10-42 BCR 9.2 10-20 BUN 11 MG/DL 7-18 CA 8.9 MG/DL 8.4-10.2 CL 97 MEQ/L 98-107 CO2 25.8 MEQ/L 22-28 CREA 1.20 MG/DL 0.6-1.0 EGFR 49 eGFR >=60 GLU 210 MG/DL 70-105 K 3.8 MEQ/L 3.5-5.1 NA 133 MEQ/L 134-145 OSMSC 272.0 MOSML 280-300 TBIL 0.3 MG/DL 0.1-1.0 TP 7.6 G/DL 6.0-8.3 Albumin/Globulin Ratio 0.7 0-8 Anion Gap 10.2 8-16 LIPID - 10/11/14 00:00 CHOHDL 6.3 1-3.5 CHOL 320 MG/DL 120-200 HDL 51 MG/DL 39-96 LDL 239 MG/DL 30-100 TRIG 239 MG/DL 35-160 VLDL 48 MG/DL 5-40 CMP - 10/11/14 00:00 ALB 3.1 G/DL 3.5-5 ALP 103 IU/L 25-72 ALT 35 IU/L 12-65 AST 40 IU/L 10-42 BCR 6.5 10-20 BUN 7 MG/DL 7-18 CA 9.0 MG/DL 8.4-10.2 CL 99 MEQ/L 98-107 CO2 28.1 MEQ/L 22-28 CREA 1.07 MG/DL 0.6-1.0 EGFR 56 eGFR >=60 GLU 99 MG/DL 70-105 K 3.7 MEQ/L 3.5-5.1 NA 135 MEQ/L 134-145 OSMSC 268.1 MOSML 280-300 TBIL 0.2 MG/DL 0.1-1.0 TP 6.9 G/DL 6.0-8.3 Albumin/Globulin Ratio 0.8 0-8 Anion Gap 7.9 8-16 CBC WITH DIFF - 10/11/14 00:00 BANDS 1.0 % 0-5 HCT 37.8 % 36.9-47.0 HGB 13.2 G/DL 12.0-16.0 LYMPH 34.0 % 20-40 MCH 32.6 PG 27-31 MCHC 34.9 G/DL 33-37 MCV 93.3 FL 81-99 MONO 3.0 % 0-10 MPV 11.2 FL 7.3-10.4 PLT 250 10^3u 130-400 RBC 4.1 10^6u 4.2-5.4 RDW 14.5 % 11.5-15.5 WBC 14.6 10^3u 4.8-10.8 SEGS 62.0 % 40-70 UA - 10/11/14 00:00 PH 7.5 4.5-8.0 SG 1.010 1.003-1.035 UABILI NEGATIVE UABLD NEGATIVE UACOLOR YEL UAGLU NEGATIVE UAKET NEGATIVE UALEUK 3+ UANIT NEGATIVE UAURO 0.2 0-0.2 CLARITY SLTCLDY PROTEIN NEGATIVE UA WBC R2030 UA RBC NORBC SQUAMOUS EPITHELIAL CELLS 2+ BACTERIA 2+ TRICHOMONAS 2+ CBC - 10/12/14 00:00 HCT 40.1 % 36.9-47.0 HGB 14.0 G/DL 12.0-16.0 MCH 33.2 PG 27-31 MCHC 34.9 G/DL 33-37 MCV 95.0 FL 81-99 MPV 10.6 FL 7.3-10.4 PLT 278 10^3u 130-400 RBC 4.2 10^6u 4.2-5.4 RDW 14.5 % 11.5-15.5 WBC 13.6 10^3u 4.8-10.8 BMP - 10/12/14 00:00 BCR 6.7 10-20 BUN 7 MG/DL 7-18 CA 9.3 MG/DL 8.4-10.2 CL 99 MEQ/L 98-107 CO2 28.6 MEQ/L 22-28 CREA 1.04 MG/DL 0.6-1.0 EGFR 58 eGFR >=60 GLU 124 MG/DL 70-105 K 4.0 MEQ/L 3.5-5.1 NA 137 MEQ/L 134-145 OSMSC 273.2 MOSML 280-300 Anion Gap 9.4 8-16 CBC WITH DIFF - 10/13/14 00:00 BASO% 0.4 % 0-2 EOS% 2.1 % 0-7.0 HCT 42.1 % 36.9-47.0 HGB 14.2 G/DL 12.0-16.0 LYMPH% 34.2 % 20-40 MCH 32.3 PG 27-31 MCHC 33.7 G/DL 33-37 MCV 95.7 FL 81-99 MONO% 6.4 % 0-10.0 MPV 10.0 FL 7.3-10.4 NEUTRO% 56.9 % 40-70 PLT 337 10^3u 130-400 RBC 4.4 10^6u 4.2-5.4 RDW 14.5 % 11.5-15.5 WBC 13.5 10^3u 4.8-10.8 NEUTRO# 7.7 10^3u 1.5-7.5 LYMPH# 4.6 10^3u 0.9-4.0 MONO# 0.9 10^3u 0-0.8 EOS# 0.3 10^3u 0-0.6 BASO# 0.1 10^3u 0-0.1 CMP - 10/13/14 00:00 ALB 3.5 G/DL 3.5-5 ALP 117 IU/L 25-72 ALT 35 IU/L 12-65 AST 37 IU/L 10-42 BCR 8.0 10-20 BUN 9 MG/DL 7-18 CA 9.6 MG/DL 8.4-10.2 CL 95 MEQ/L 98-107 CO2 29.4 MEQ/L 22-28 CREA 1.13 MG/DL 0.6-1.0 EGFR 53 eGFR >=60 GLU 134 MG/DL 70-105 K 4.0 MEQ/L 3.5-5.1 NA 133 MEQ/L 134-145 OSMSC 267.0 MOSML 280-300 TBIL 0.3 MG/DL 0.1-1.0 TP 7.5 G/DL 6.0-8.3 Albumin/Globulin Ratio 0.9 0-8 Anion Gap 8.6 8-16 MICROALBUMIN CREATININE RATIO - 10/14/14 00:00 MALB 160.2 MG/L MALCRR 122 MCGCR 0-30 UCREAT 131.54 MG/DL 15.0-327 [facility] - 10/14/14 00:00 BCR 12.1 10-20 BUN 16 MG/DL 7-18 CA 9.5 MG/DL 8.4-10.2 CL 97 MEQ/L 98-107 CO2 29.5 MEQ/L 22-28 CREA 1.32 MG/DL 0.6-1.0 EGFR 44 eGFR >=60 GLU 97 MG/DL 70-105 K 3.7 MEQ/L 3.5-5.1 NA 134 MEQ/L 134-145 OSMSC 269.3 MOSML 280-300 Anion Gap 7.5 8-16 CBC - 10/15/14 00:00 HCT 42.8 % 36.9-47.0 HGB 14.6 G/DL 12.0-16.0 MCH 33.0 PG 27-31 MCHC 34.1 G/DL 33-37 MCV 96.6 FL 81-99 MPV 10.1 FL 7.3-10.4 PLT 357 10^3u 130-400 RBC 4.4 10^6u 4.2-5.4 RDW 14.9 % 11.5-15.5 WBC 15.3 10^3u 4.8-10.8 [facility] - 10/15/14 00:00 BCR 15.2 10-20 BUN 21 MG/DL 7-18 CA 9.4 MG/DL 8.4-10.2 CL 95 MEQ/L 98-107 CO2 27.8 MEQ/L 22-28 CREA 1.38 MG/DL 0.6-1.0 EGFR 42 eGFR >=60 GLU 140 MG/DL 70-105 K 3.8 MEQ/L 3.5-5.1 NA 132 MEQ/L 134-145 OSMSC 269.8 MOSML 280-300 Anion Gap 9.2 8-16 CBC WITH DIFF - 10/16/14 00:00 BANDS 2.0 % 0-5 EOS 2.0 % 0-7 HCT 42.3 % 36.9-47.0 HGB 14.3 G/DL 12.0-16.0 LYMPH 40.0 % 20-40 MCH 32.8 PG 27-31 MCHC 33.8 G/DL 33-37 MCV 97.0 FL 81-99 MONO 2.0 % 0-10 MPV 10.2 FL 7.3-10.4 PLT 339 10^3u 130-400 RBC 4.4 10^6u 4.2-5.4 RDW 15.0 % 11.5-15.5 WBC 15.6 10^3u 4.8-10.8 SEGS 54.0 % 40-70 CMP - 10/16/14 00:00 ALB 3.5 G/DL 3.5-5 ALP 123 IU/L 25-72 ALT 32 IU/L 12-65 AST 32 IU/L 10-42 BCR 18.6 10-20 BUN 27 MG/DL 7-18 CA 9.3 MG/DL 8.4-10.2 CL 96 MEQ/L 98-107 CO2 26.7 MEQ/L 22-28 CREA 1.45 MG/DL 0.6-1.0 EGFR 39 eGFR >=60 GLU 147 MG/DL 70-105 K 3.9 MEQ/L 3.5-5.1 NA 133 MEQ/L 134-145 OSMSC 274.2 MOSML 280-300 TBIL 0.3 MG/DL 0.1-1.0 TP 7.9 G/DL 6.0-8.3 Albumin/Globulin Ratio 0.8 0-8 Anion Gap 10.3 8-16 UA - 10/17/14 00:00 PH 5.5 4.5-8.0 SG 1.025 1.003-1.035 UABILI NEGATIVE UABLD NEGATIVE UACOLOR YEL UAGLU NEGATIVE UAKET NEGATIVE UALEUK TRACE UANIT NEGATIVE UAURO 0.2 0-0.2 CLARITY SLTCLDY PROTEIN NEGATIVE UA WBC R2030 UA RBC R05 SQUAMOUS EPITHELIAL CELLS FEW BACTERIA 1+ HYALINE CASTS 1+ CBC WITH DIFF - 10/18/14 00:00 BASO 2.0 % 0-2 EOS 3.0 % 0-7 HCT 41.4 % 36.9-47.0 HGB 14.3 G/DL 12.0-16.0 LYMPH 29.0 % 20-40 MCH 33.3 PG 27-31 MCHC 34.5 G/DL 33-37 MCV 96.5 FL 81-99 MONO 6.0 % 0-10 MPV 10.3 FL 7.3-10.4 PLT 306 10^3u 130-400 RBC 4.3 10^6u 4.2-5.4 RDW 14.9 % 11.5-15.5 WBC 14.5 10^3u 4.8-10.8 SEGS 60.0 % 40-70 BMP - 10/18/14 00:00 BCR 23.0 10-20 BUN 31 MG/DL 7-18 CA 9.5 MG/DL 8.4-10.2 CL 96 MEQ/L 98-107 CO2 25.7 MEQ/L 22-28 CREA 1.35 MG/DL 0.6-1.0 EGFR 43 eGFR >=60 GLU 123 MG/DL 70-105 K 3.7 MEQ/L 3.5-5.1 NA 132 MEQ/L 134-145 OSMSC 272.4 MOSML 280-300 Anion Gap 10.3 8-16 MG - 10/18/14 00:00 MG 1.7 MG/DL 1.7-2.8 CK - 10/18/14 00:00 CK 113 IU/L 26-192 UA - 12/13/14 00:00 PH 6.0 4.5-8.0 SG 1.015 1.003-1.035 UABILI NEGATIVE UABLD NEGATIVE UACOLOR YEL UAGLU NEGATIVE UAKET NEGATIVE UALEUK 1+ UANIT NEGATIVE UAURO 0.2 0-0.2 CLARITY CLD PROTEIN NEGATIVE UA WBC TNTC UA RBC R05 SQUAMOUS EPITHELIAL CELLS 1+ BACTERIA 3+ CBC - 04/03/15 00:00 HCT 35.3 % 36.9-47.0 HGB 12.5 G/DL 12.0-16.0 MCH 32.6 PG 27-31 MCHC 35.4 G/DL 33-37 MCV 91.9 FL 81-99 MPV 10.0 FL 7.3-10.4 PLT 282 10^3u 130-400 RBC 3.8 10^6u 4.2-5.4 RDW 12.9 % 11.5-15.5 WBC 20.4 10^3u 4.8-10.8 PRO-BNP - 04/03/15 00:00 PRO-BNP 503 PG/ML 0-450 CKMB - 04/03/15 00:00 CKMB 1.1 NG/ML 0-3.6 CK - 04/03/15 00:00 CK 52 IU/L 26-192 CMP - 04/03/15 00:00 ALB 3.6 G/DL 3.5-5 ALP 122 IU/L 25-72 ALT 20 IU/L 12-65 AST 13 IU/L 10-42 BCR 16.7 10-20 BUN 23 MG/DL 7-18 CA 9.2 MG/DL 8.4-10.2 CL 99 MEQ/L 98-107 CO2 25.3 MEQ/L 22-28 CREA 1.38 MG/DL 0.6-1.0 EGFR 42 eGFR >=60 GLU 206 MG/DL 70-105 K 4.0 MEQ/L 3.5-5.1 NA 137 MEQ/L 134-145 OSMSC 283.5 MOSML 280-300 TBIL 0.4 MG/DL 0.1-1.0 TP 7.6 G/DL 6.0-8.3 Albumin/Globulin Ratio 0.9 0-8 Anion Gap 12.7 8-16 TROP - 04/03/15 00:00 TROP < 0.04 NG/ML 0.0-0.4 DIFFERENTIAL, MANUAL - 04/03/15 00:00 BANDS 4.0 % 0-5 LYMPH 10.0 % 20-40 MONO 2.0 % 0-10 SEGS 84.0 % 40-70 LACTIC ACID - 04/03/15 00:00 LA 1.5 MMOLL 0.4-2.0 UA - 04/03/15 00:00 PH 5.5 4.5-8.0 SG 1.025 1.003-1.035 UABILI NEGATIVE UABLD 3+ UACOLOR YEL UAGLU NEGATIVE UAKET NEGATIVE UALEUK 2+ UANIT POSITIVE UAURO 0.2 0-0.2 CLARITY TURBID PROTEIN 2+ UA WBC TNTC UA RBC R2030 SQUAMOUS EPITHELIAL CELLS FEW BACTERIA 2+ CBC WITH DIFF - 04/03/15 00:00 BANDS 10.0 % 0-5 EOS 1.0 % 0-7 HCT 33.3 % 36.9-47.0 HGB 11.6 G/DL 12.0-16.0 LYMPH 6.0 % 20-40 MCH 32.8 PG 27-31 MCHC 34.8 G/DL 33-37 MCV 94.1 FL 81-99 MONO 7.0 % 0-10 MPV 10.2 FL 7.3-10.4 PLT 268 10^3u 130-400 RBC 3.5 10^6u 4.2-5.4 RDW 13.1 % 11.5-15.5 WBC 23.0 10^3u 4.8-10.8 SEGS 76.0 % 40-70 BMP - 04/03/15 00:00 BCR 12.6 10-20 BUN 24 MG/DL 7-18 CA 8.7 MG/DL 8.4-10.2 CL 98 MEQ/L 98-107 CO2 24.0 MEQ/L 22-28 CREA 1.90 MG/DL 0.6-1.0 EGFR 29 eGFR >=60 GLU 244 MG/DL 70-105 K 3.6 MEQ/L 3.5-5.1 NA 135 MEQ/L 134-145 OSMSC 282.2 MOSML 280-300 Anion Gap 13.0 8-16 CBC WITH DIFF - 04/04/15 00:00 BASO% 0.2 % 0-2 EOS% 1.6 % 0-7.0 HCT 32.2 % 36.9-47.0 HGB 11.2 G/DL 12.0-16.0 LYMPH% 15.7 % 20-40 MCH 32.7 PG 27-31 MCHC 34.8 G/DL 33-37 MCV 94.2 FL 81-99 MONO% 9.4 % 0-10.0 MPV 10.1 FL 7.3-10.4 NEUTRO% 73.1 % 40-70 PLT 245 10^3u 130-400 RBC 3.4 10^6u 4.2-5.4 RDW 13.0 % 11.5-15.5 WBC 14.9 10^3u 4.8-10.8 NEUTRO# 10.9 10^3u 1.5-7.5 LYMPH# 2.3 10^3u 0.9-4.0 MONO# 1.4 10^3u 0-0.8 EOS# 0.2 10^3u 0-0.6 BASO# 0.0 10^3u 0-0.1 [facility] - 04/04/15 00:00 ALB 3.1 G/DL 3.5-5 ALP 106 IU/L 25-72 ALT 17 IU/L 12-65 AST 12 IU/L 10-42 BCR 14.2 10-20 BUN 18 MG/DL 7-18 CA 8.5 MG/DL 8.4-10.2 CL 101 MEQ/L 98-107 CO2 22.9 MEQ/L 22-28 CREA 1.27 MG/DL 0.6-1.0 EGFR 46 eGFR >=60 GLU 178 MG/DL 70-105 K 3.9 MEQ/L 3.5-5.1 NA 138 MEQ/L 134-145 OSMSC 282.0 MOSML 280-300 TBIL 0.3 MG/DL 0.1-1.0 TP 6.6 G/DL 6.0-8.3 Albumin/Globulin Ratio 0.9 0-8 Anion Gap 14.1 8-16 [facility] - 04/29/15 00:00 BCR 10.5 10-20 BUN 17 MG/DL 7-18 CA 9.0 MG/DL 8.4-10.2 CL 97 MEQ/L 98-107 CO2 27.9 MEQ/L 22-28 CREA 1.62 MG/DL 0.6-1.0 EGFR 35 eGFR >=60 GLU 221 MG/DL 70-105 K 4.4 MEQ/L 3.5-5.1 NA 135 MEQ/L 134-145 OSMSC 278.4 MOSML 280-300 Anion Gap 10.1 8-16 [facility] - 05/06/15 00:00 BCR 13.5 10-20 BUN 20 MG/DL 7-18 CA 9.4 MG/DL 8.4-10.2 CL 96 MEQ/L 98-107 CO2 27.6 MEQ/L 22-28 CREA 1.48 MG/DL 0.6-1.0 EGFR 38 eGFR >=60 GLU 195 MG/DL 70-105 K 4.0 MEQ/L 3.5-5.1 NA 136 MEQ/L 134-145 OSMSC 279.9 MOSML 280-300 Anion Gap 12.4 8-16 CBC WITH DIFF - 05/17/15 00:00 BASO% 0.1 % 0-2 EOS% 0.1 % 0-7.0 HCT 34.1 % 36.9-47.0 HGB 11.7 G/DL 12.0-16.0 LYMPH% 11.3 % 20-40 MCH 31.8 PG 27-31 MCHC 34.3 G/DL 33-37 MCV 92.7 FL 81-99 MONO% 9.6 % 0-10.0 MPV 10.6 FL 7.3-10.4 NEUTRO% 78.4 % 40-70 PLT 196 10^3u 130-400 RBC 3.7 10^6u 4.2-5.4 RDW 12.3 % 11.5-15.5 WBC 16.1 10^3u 4.8-10.8 NEUTRO# 12.6 10^3u 1.5-7.5 LYMPH# 1.8 10^3u 0.9-4.0 MONO# 1.5 10^3u 0-0.8 EOS# 0.0 10^3u 0-0.6 BASO# 0.0 10^3u 0-0.1 IMM GRANULOCYTE % 0.5 % IMM GRANULOCYTE # 0.1 10^3u 0-5 UA - 05/17/15 00:00 PH 6.0 4.5-8.0 SG 1.015 1.003-1.035 UABILI 1+ UABLD 2+ UACOLOR YEL UAGLU NEGATIVE UAKET TRACE UALEUK 3+ UANIT NEGATIVE UAURO 1.0 0-0.2 CLARITY CLD PROTEIN 2+ UA WBC TNTC UA RBC R2030 SQUAMOUS EPITHELIAL CELLS 1+ BACTERIA 4+ AMORPHOUS CRYSTALS 1+ CMP - 05/17/15 00:00 ALB 3.2 G/DL 3.5-5 ALP 133 IU/L 25-72 ALT 30 IU/L 12-65 AST 21 IU/L 10-42 BCR 10.5 10-20 BUN 16 MG/DL 7-18 CA 8.5 MG/DL 8.4-10.2 CL 95 MEQ/L 98-107 CO2 27.1 MEQ/L 22-28 CREA 1.53 MG/DL 0.6-1.0 EGFR 37 eGFR >=60 GLU 151 MG/DL 70-105 K 3.2 MEQ/L 3.5-5.1 NA 136 MEQ/L 134-145 OSMSC 276.1 MOSML 280-300 TBIL 0.6 MG/DL 0.1-1.0 TP 7.9 G/DL 6.0-8.3 Albumin/Globulin Ratio 0.7 0-8 Anion Gap 13.9 8-16 BMP - 06/12/15 00:00 BCR 14.7 10-20 BUN 21 MG/DL 7-18 CA 9.0 MG/DL 8.4-10.2 CL 97 MEQ/L 98-107 CO2 32.4 MEQ/L 22-28 CREA 1.43 MG/DL 0.6-1.0 EGFR 40 eGFR >=60 GLU 172 MG/DL 70-105 K 4.1 MEQ/L 3.5-5.1 NA 138 MEQ/L 134-145 OSMSC 282.7 MOSML 280-300 Anion Gap 8.6 8-16 CBC WITH DIFF - 01/29/16 00:00 BASO% 0.3 % 0-2 EOS% 1.0 % 0-7.0 HCT 41.7 % 36.9-47.0 HGB 13.8 G/DL 12.0-16.0 LYMPH% 17.7 % 20-40 MCH 31.7 PG 27-31 MCHC 33.1 G/DL 33-37 MCV 95.6 FL 81-99 MONO% 5.1 % 0-10.0 MPV 10.8 FL 7.3-10.4 NEUTRO% 75.5 % 40-70 PLT 294 10^3u 130-400 RBC 4.4 10^6u 4.2-5.4 RDW 12.6 % 11.5-15.5 WBC 14.5 10^3u 4.8-10.8 NEUTRO# 10.9 10^3u 1.5-7.5 LYMPH# 2.6 10^3u 0.9-4.0 MONO# 0.7 10^3u 0-0.8 EOS# 0.2 10^3u 0-0.6 BASO# 0.0 10^3u 0-0.1 IMM GRANULOCYTE % 0.4 % IMM GRANULOCYTE # 0.1 10^3u 0-5 TSH - 01/29/16 00:00 TSH 3.91 UIUML 0.36-3.74 PRO-BNP - 01/29/16 00:00 PRO-BNP 280 PG/ML 0-450 CMP - 01/29/16 00:00 ALB 3.9 G/DL 3.5-5 ALP 145 IU/L 25-72 ALT 23 IU/L 12-65 AST 12 IU/L 10-42 BCR 15.4 10-20 BUN 16 MG/DL 7-18 CA 9.1 MG/DL 8.4-10.2 CL 98 MEQ/L 98-107 CO2 30.4 MEQ/L 22-28 CREA 1.04 MG/DL 0.6-1.0 EGFR 58 eGFR >=60 GLU 163 MG/DL 70-105 K 4.4 MEQ/L 3.5-5.1 NA 139 MEQ/L 134-145 OSMSC 282.3 MOSML 280-300 TBIL 0.3 MG/DL 0.1-1.0 TP 7.4 G/DL 6.0-8.3 Albumin/Globulin Ratio 1.1 0-8 Anion Gap 10.6 8-16 HA1C - 01/29/16 00:00 HA1C 7.8 % 4.5-6.2 LIPID - 02/05/16 00:00 CHOHDL 4.3 1-3.5 CHOL 143 MG/DL 120-200 HDL 33 MG/DL 39-96 LDL 69 MG/DL 30-100 TRIG 256 MG/DL 35-160 VLDL 51 MG/DL 5-40 CBC - 02/10/16 00:00 HCT 40.2 % 36.9-47.0 HGB 13.6 G/DL 12.0-16.0 MCH 32.0 PG 27-31 MCHC 33.8 G/DL 33-37 MCV 94.6 FL 81-99 MPV 10.6 FL 7.3-10.4 PLT 302 10^3u 130-400 RBC 4.3 10^6u 4.2-5.4 RDW 12.8 % 11.5-15.5 WBC 16.6 10^3u 4.8-10.8 PT INR - 02/10/16 00:00 INR 1.0 0.8-1.2 PT 10.0 SEC 9.1-12.0 APTT - 02/10/16 00:00 APTT 26.2 SEC 22-35.4 MG - 02/10/16 00:00 MG 1.1 MG/DL 1.7-2.8 [facility] - 02/10/16 00:00 BCR 14.5 10-20 BUN 16 MG/DL 7-18 CA 8.6 MG/DL 8.4-10.2 CL 97 MEQ/L 98-107 CO2 29.4 MEQ/L 22-28 CREA 1.10 MG/DL 0.6-1.0 EGFR 54 eGFR >=60 GLU 174 MG/DL 70-105 K 4.0 MEQ/L 3.5-5.1 NA 136 MEQ/L 134-145 OSMSC 277.3 MOSML 280-300 Anion Gap 9.6 8-16 D DIMER - 02/10/16 00:00 DDIM 126 NG/ML 0-400 MG - 02/17/16 00:00 MG 1.5 MG/DL 1.7-2.8 MG - 02/28/16 00:00 MG 1.4 MG/DL 1.7-2.8 [facility] - 02/28/16 00:00 BCR 22.7 10-20 BUN 22 MG/DL 7-18 CA 8.9 MG/DL 8.4-10.2 CL 102 MEQ/L 98-107 CO2 29.7 MEQ/L 22-28 CREA 0.97 MG/DL 0.6-1.0 EGFR 62 eGFR >=60 GLU 140 MG/DL 70-105 K 4.5 MEQ/L 3.5-5.1 NA 138 MEQ/L 134-145 OSMSC 281.3 MOSML 280-300 Anion Gap 6.3 8-16 MG - 03/18/16 00:00 MG 1.5 MG/DL 1.7-2.8 BMP - 03/18/16 00:00 BCR 21.8 10-20 BUN 29 MG/DL 7-18 CA 8.9 MG/DL 8.4-10.2 CL 97 MEQ/L 98-107 CO2 27.5 MEQ/L 22-28 CREA 1.33 MG/DL 0.6-1.0 EGFR 43 eGFR >=60 GLU 199 MG/DL 70-105 K 4.5 MEQ/L 3.5-5.1 NA 134 MEQ/L 134-145 OSMSC 279.7 MOSML 280-300 Anion Gap 9.5 8-16 MG - 05/06/16 00:00 MG 1.1 MG/DL 1.7-2.8 BMP - 05/06/16 00:00 BCR 17.4 10-20 BUN 19 MG/DL 7-18 CA 9.1 MG/DL 8.4-10.2 CL 97 MEQ/L 98-107 CO2 31.8 MEQ/L 22-28 CREA 1.09 MG/DL 0.6-1.0 EGFR 55 eGFR >=60 GLU 200 MG/DL 70-105 K 4.0 MEQ/L 3.5-5.1 NA 137 MEQ/L 134-145 OSMSC 281.7 MOSML 280-300 Anion Gap 8.2 8-16 HA1C - 05/06/16 00:00 HA1C 7.5 % 4.5-6.2 Encounters ACCT No. Visit Date/Time Discharge Status Pt. Type Provider Facility Loc./Unit Complaint [id number] 05/06/2016 15:55:00 05/06/2016 15:55:00 DIS Outpatient KAE FAN [facility] PANACE [id number] 05/04/2016 16:02:00 05/04/2016 16:43:00 DIS Emergency NIMESH GARCIA [facility] EMR [id number] 04/07/2016 16:13:00 04/07/2016 16:13:00 DIS Outpatient KAE FAN [facility] PANACE [id number] 03/25/2016 19:17:00 03/25/2016 20:20:00 DIS Emergency ROGELIO PALOMINO [facility] EMR [id number] 03/18/2016 10:52:00 03/18/2016 10:52:00 DIS Outpatient KAE FAN [facility] PA[facility]CE [id number] 02/28/2016 16:36:00 02/28/2016 16:36:00 DIS Outpatient KAE FAN [facility] PA[facility]CE [id number] 02/18/2016 13:49:00 02/18/2016 13:49:00 DIS Outpatient BREGRACERONNY [facility] PANACE [id number] 02/17/2016 10:42:00 02/17/2016 10:42:00 DIS Outpatient BREITLATESHA FAN [facility] PANACE [id number] 02/09/2016 23:04:00 02/10/2016 01:08:00 DIS Emergency JOSSY VILLA [facility] EMR [id number] 02/05/2016 13:26:00 02/05/2016 13:26:00 DIS Outpatient BREITLATESHA [facility] RAD [id number] 02/05/2016 10:53:00 02/05/2016 10:53:00 DIS Outpatient BREITLATESHA [facility] PANACE [id number] 12/31/2015 00:01:00 01/30/2016 23:59:00 DIS Outpatient BREITLATESHA [facility] PT [id number] 01/29/2016 14:28:00 01/29/2016 14:28:00 DIS Outpatient KAE [facility] PANACE [id number] 12/02/2015 00:01:00 12/30/2015 23:59:00 DIS Outpatient BREITLATESHA [facility] PT [id number] 11/01/2015 00:01:00 12/01/2015 23:59:00 DIS Outpatient BREITLATESHA [facility] PT [id number] 10/02/2015 09:59:00 10/31/2015 23:59:00 DIS Outpatient BREITLATESHA [facility] PT [id number] 06/14/2015 09:41:00 06/14/2015 09:41:00 DIS Outpatient BREITLATESHA [facility] RAD [id number] 06/12/2015 18:09:00 06/12/2015 23:59:59 CLS Outpatient RASHEEDITLATESHA [facility] PANACE [id number] 06/07/2015 13:43:00 06/07/2015 13:43:00 DIS Outpatient KAE FAN [facility] RAD [id number] 06/04/2015 15:38:00 06/04/2015 23:59:59 CLS Outpatient KAE [facility] RAD [id number] 05/17/2015 02:58:00 05/17/2015 23:59:59 CLS Outpatient KAE [facility] EMR [id number] 05/17/2015 22:11:00 05/17/2015 23:55:00 DIS Emergency GILBERT SYLVESTER [facility] EMR [id number] 05/06/2015 12:05:00 05/06/2015 12:05:00 DIS Outpatient GILBERT SYLVESTER [facility] [id number] 04/29/2015 12:12:00 04/29/2015 12:12:00 DIS Outpatient GILBERT SYLVESTER [facility] HH [id number] 04/20/2015 03:35:00 04/20/2015 04:20:00 DIS Emergency MARLENA PHILLIPS [facility] EMR [id number] 04/05/2015 11:13:00 04/05/2015 12:20:00 DIS Outpatient GILBERT SYLVESTER [facility] OBS [id number] 04/03/2015 11:15:00 04/04/2015 14:45:00 DIS Outpatient GILBERT SYLVESTER [facility] OBS [id number] 04/03/2015 01:13:00 04/03/2015 03:40:00 DIS Emergency GILBERT SYLVESTER [facility] OBS [id number] 03/13/2015 14:03:00 03/13/2015 14:03:00 DIS Outpatient GILBERT SYLVESTER [facility] RAD [id number] 02/05/2015 06:27:00 02/05/2015 06:27:00 DIS Outpatient GILBERT SYLVESTER [facility] RAD [id number] 12/13/2014 07:21:00 12/13/2014 07:21:00 DIS Outpatient FAN PAL [facility] [id number] 10/07/2014 13:18:00 10/19/2014 10:40:00 DIS Inpatient GILBERT SYLVESTER [address] [id number] 10/07/2014 08:33:00 10/07/2014 13:18:00 DIS Emergency JUAN CARLOS MAY [facility] EMR [id number] 09/30/2015 00:00:00 Document Registration [id number] 09/30/2015 00:00:00 Document Registration [id number] 09/30/2015 00:00:00 Document Registration [id number] 09/30/2015 00:00:00 Document Registration [id number] 09/30/2015 00:00:00 Document Registration [id number] 09/30/2015 00:00:00 Document Registration [id number] 09/30/2015 00:00:00 Document Registration [id number] 09/30/2014 00:00:00 Document Registration [id number] 09/30/2014 00:00:00 Document Registration [id number] 09/30/2014 00:00:00 Document Registration [id number] 09/30/2014 00:00:00 Document Registration [id number] 09/30/2014 00:00:00 Document Registration [id number] 09/30/2014 00:00:00 Document Registration [id number] 09/30/2014 00:00:00 Document Registration [id number] 09/30/2013 00:00:00 Document Registration [id number] 06/22/2018 13:38:50 06/22/2018 23:59:59 DIS Outpatient WILMER [facility] [id number] 06/22/2018 12:51:47 06/22/2018 23:59:59 DIS Outpatient WILMER [facility] [id number] 05/25/2018 15:33:37 05/25/2018 23:59:59 DIS Outpatient WILMER [facility] [id number] 05/25/2018 15:30:00 05/25/2018 23:59:59 DIS Outpatient WILMER [facility] [id number] 10/15/2017 16:00:54 10/15/2017 23:59:59 CLS Preadmit WILMER [facility] [place] RAD screening [id number] 10/13/2017 14:35:17 10/13/2017 23:59:59 DIS Outpatient HOWARD [facility] [id number] 10/13/2017 13:35:04 10/13/2017 23:59:59 DIS Outpatient WILMER [facility] [id number] 10/04/2017 15:22:37 10/04/2017 23:59:59 DIS Outpatient WILMER [facility] [id number] 10/01/2017 15:23:15 10/01/2017 23:59:59 DIS Outpatient WILMER [facility] [id number] 09/27/2017 15:12:57 09/27/2017 23:59:59 DIS Outpatient WILMER [facility] [id number] 09/23/2017 17:18:23 09/23/2017 23:59:59 CLS Preadmit [facility] [place] INF wound [id number] 09/23/2017 16:49:00 09/23/2017 23:59:59 CLS Emergency [facility] [place] ED cyst [id number] 09/22/2017 18:20:00 09/22/2017 23:59:59 CLS Emergency [facility] [place] ED boils [id number] 09/10/2017 09:30:00 09/10/2017 23:59:59 DIS Outpatient [facility] [id number] 07/22/2017 13:47:11 07/22/2017 23:59:59 [facility] [id number] 07/22/2017 12:58:15 07/22/2017 23:59:59 DIS Outpatient HOWARD [facility] [id number] 06/16/2017 15:47:06 06/16/2017 23:59:59 DIS Outpatient HOWARD GUILLEN [facility] [id number] 06/16/2017 14:27:47 06/16/2017 23:59:59 DIS Outpatient WILMER [facility] [id number] 05/14/2017 16:52:09 05/14/2017 23:59:59 DIS Outpatient WILMER [facility] [id number] 05/14/2017 15:57:23 05/14/2017 23:59:59 DIS Outpatient WILMER HOWARD [facility] [id number] 04/09/2017 09:43:30 04/09/2017 23:59:59 CLS Outpatient WILMER [facility] [id number] 03/24/2017 11:03:39 03/24/2017 23:59:59 CLS Preadmit Ramos Iniguez [facility] [place] RAD stroke [id number] 03/05/2017 10:57:26 03/05/2017 23:59:59 CLS Outpatient WILMER [facility] [id number] 02/09/2017 13:36:16 02/09/2017 23:59:59 CLS Outpatient FAN PAL [facility] [id number] 01/05/2017 14:44:16 01/05/2017 23:59:59 CLS Preadmit NOAH GUY [facility] [place] RAD irregular menstrual cycles, skipping 2-3 months at a time [id number] 12/25/2016 11:22:24 12/25/2016 23:59:59 CLS Outpatient FAN PAL [facility] [id number] 12/15/2016 00:37:00 12/15/2016 23:59:59 CLS Emergency [facility] [place] ED unknown [id number] 11/24/2016 15:32:46 11/24/2016 23:59:59 CLS Outpatient GILBERT SYLVESTER [facility] [id number] 06/06/2018 02:00:46 Document Registration [id number] 06/02/2018 06:08:22 Document Registration [id number] 06/02/2018 02:33:23 Document Registration [id number] 04/09/2017 10:20:07 Document Registration [id number] 03/05/2017 11:21:00 Document Registration [id number] 03/02/2017 14:00:24 Document Registration [id number] 03/02/2017 13:58:34 Document Registration [id number] 02/22/2017 16:26:31 Document Registration [id number] 02/22/2017 16:24:26 Document Registration [id number] 02/21/2017 01:25:00 ACT V GILBERT SYLVESTER [facility] [place] OBS Vomiting, nausea, lightheaded [id number] 02/18/2017 13:52:27 Document Registration [id number] 02/18/2017 13:48:52 Document Registration [id number] 02/04/2017 14:16:23 Document Registration [id number] 02/04/2017 14:14:07 Document Registration [id number] 01/01/2017 10:11:19 Document Registration [id number] 01/01/2017 10:08:45 Document Registration [id number] 01/01/2017 02:00:15 Document Registration [id number] 12/25/2016 12:28:20 Document Registration [id number] 12/18/2016 02:00:45 Document Registration [id number] 12/15/2016 06:32:15 Document Registration [id number] 12/15/2016 00:47:37 Document Registration [id number] 10/05/2016 16:45:29 Document Registration [id number] 06/22/2017 11:01:25 ACT Unknown [id number] 07/16/2015 10:59:11 07/16/2015 23:59:59 CLS Outpatient Melisa Luo [id number] 06/10/2015 22:26:53 06/10/2015 23:59:59 CLS Outpatient Melisa Luo [id number] 07/25/2013 14:02:00 07/25/2013 23:59:59 CLS Outpatient YANIQUE BERTRAND DO [facility] 06/26/2017 21:51:40 ACT Document Registration
== END 2018-07-26 14:34 | disposition home or self-care (01) ==
LOC: ER 13:32
DX: N39.0 Urinary tract infection, site not specified (principal); B34.9 Viral infection, unspecified; I10 Essential (primary) hypertension; F17.200 Nicotine dependence, unspecified, uncomplicated
CPT/HCPCS: 99282

== ENCOUNTER 2021-10-16 14:37 | Emergency (ER) | payer MEDICARE ==
[~2021-10-16] VITALS: Ht 154 cm; Wt 113.0 kg
[~2021-10-16 14:37] MED LIST: AMIT25TA9; ATOR40TA70; CLOP75TA28; DANT25CA; DULO60CA59; FURO20TA4; GLBR2.5T; LEVO200T6; METO-333; MIRA50TA
[2021-10-16 14:50] VITALS: BP_DIAS 83
[2021-10-16] MEDS ORDERED: IBUPROFEN 800 MG (MOTRIN) TAB PO ONE (15:00)
[2021-10-16] MEDS ORDERED: LACTATED RINGERS 1,000 ML IV SCH (15:00)
--- NOTE | 2021-10-16 15:03 | ED General ---
General Stated Complaint: COUGH,FEVER,DIZZINESS Source of Information: Patient Exam Limitations: No Limitations (ANTHONY RICHARDSON APRN) History of Present Illness Date Seen by Provider: Oct 16, 2021 Time Seen by Provider: 15:01 Initial Comments To ER with reports of a 7 day history of fever up to 101 currently, cough, dizziness. She has some chronic urinary incontinence no change. No diarrhea abdominal pain or dysuria. She is not vaccinated against Covid. She is an ins ulin-dependent diabetic. Timing/Duration: 1 Week Severity: Moderate Associated Systoms: Cough, Fever/Chills, Headaches, Malaise (ANTHONY RICHARDSON APRN) Allergies and Home Medications Allergies Coded Allergies: No Known Drug Allergies (Unverified , 10/16/21) Patient Home Medication List Home Medication List Reviewed: Yes (ANTHONY RICHARDSON APRN) Amitriptyline HCl (Amitriptyline HCl) 25 Mg Tablet, (Reported) Entered as Reported by: JESSICA DARNELL on 07/26/18 141 Atorvastatin Calcium (Atorvastatin Calcium) 40 Mg Tablet, (Reported) Entered as Reported by: JESSICA DARNELL on 07/26/18 1412 Clopidogrel Bisulfate (Clopidogrel) 75 Mg Tablet, (Reported) Entered as Reported by: JESSICA DARNELL on 07/26/18 141 Dantrolene Sodium (Dantrolene Sodium) 25 Mg Capsule, (Reported) Entered as Reported by: JESSICA DARNELL on 07/26/18 1412 Duloxetine HCl (Duloxetine HCl) 60 Mg Capsule., (Reported) Entered as Reported by: JESSICA DARNELL on 07/26/18 1413 Furosemide (Furosemide) 20 Mg Tablet, (Reported) Entered as Reported by: JESSICA DARNELL on 07/26/18 1412 Glyburide (Glyburide) 2.5 Mg Tablet, (Reported) Entered as Reported by: JESSICA DARNELL on 07/26/18 141 Levothyroxine Sodium (Levothyroxine Sodium) 200 Mcg Tablet, (Reported) Entered as Reported by: JESSICA DARNELL on 07/26/18 1412 Metoprolol Tartrate (Metoprolol Tartrate) 25 Mg Tablet, (Reported) Entered as Reported by: JESSICA DARNELL on 07/26/18 1413 Mirabegron (Myrbetriq) 50 Mg Tab.er.24h, (Reported) Entered as Reported by: JESSICA Ramirez CARIE on 07/26/18 1412 Review of Systems Review of Systems Constitutional: see HPI, chills, fever, malaise, weakness EENTM: see HPI Respiratory: see HPI, cough Cardiovascular: no symptoms reported Genitourinary: no symptoms reported Musculoskeletal: no symptoms reported Skin: no symptoms reported Psychiatric/Neurological: No Symptoms Reported Hematologic/Lymphatic: No Symptoms Reported (ANTHONY RICHARDSON APRN) Past Crgdbxx-Ajfgdo-Fvlaad Hx Past Medical History Surgeries: Yes (TRIPPLE BYPASS) Gallbladder Respiratory: No Cardiac: Yes Hypertension Neurological: No Gastrointestinal: No Musculoskeletal: No Endocrine: Yes Diabetes, Insulin dep HEENT: No Cancer: No Integumentary: No (ANTHONY RICHARDSON APRN) Physical Exam Vital Signs Vital Signs - First Documented 10/16/21 14:50 Temp 38.6 Pulse 115 Resp 18 B/P (MAP) 147/83 (104) Pulse Ox 96 O2 Delivery Room Air (OTONIEL COLLINS MD) Vital Signs Capillary Refill : (ANTHONY RICHARDSON APRN) Height, Weight, BMI Height: 5'1.00" Weight: 220lbs. oz. 99.235962ok; BMI Method:Stated General Appearance: No Apparent Distress, WD/WN, Other (Alert and oriented no distress temperature 101 here. Blood pressure one forties over nineties. Heart rate is about 100. Oxygen 94% room air. She does not appear dyspneic and speaks in full sentences.) Eyes: Bilateral Eye Normal Inspection, Bilateral Eye PERRL, Bilateral Eye EOMI HEENT: PERRL/EOMI, TMs Normal, Normal ENT Inspection Respiratory: No Accessory Muscle Use, No Respiratory Distress Cardiovascular: Normal Peripheral Pulses, Tachycardia Gastrointestinal: Normal Bowel Sounds, Non Tender, Soft Neurologic/Psychiatric: Alert, Oriented x3 Skin: Normal Color, Warm/Dry (ANTHONY RICHARDSON APRN) Focused Exam Lactate Level 10/16/21 14:55: Lactic Acid Level 1.51 (OTONIEL COLLINS MD) Lactic Acid Level Laboratory Tests Test 10/16/21 14:55 Lactic Acid Level 1.51 MMOL/L (0.50-2.00) (OTONIEL COLLINS MD) Progress/Results/Core Measures Suspected Sepsis SIRS Temperature: Pulse: Respiratory Rate: Laboratory Tests 10/16/21 14:55: White Blood Count 10.1 Blood Pressure / Mean: 10/16/21 14:55: Lactic Acid Level 1.51 Laboratory Tests 10/16/21 14:55: Creatinine 1.95H, INR Comment 1.0, Platelet Count 205, Total Bilirubin 0.3 (ANTHONY RICHARDSON APRN) Results/Orders Lab Results Laboratory Tests Test 10/16/21 14:53 10/16/21 14:55 10/16/21 15:51 Range/Units Influenza Type A (RT-PCR) Not Detected Not Detecte Influenza Type B (RT-PCR) Not Detected Not Detecte SARS-CoV-2 RNA (RT-PCR) Detected H Not Detecte White Blood Count 10.1 4.3-11.0 10^3/uL Red Blood Count 4.43 3.80-5.11 10^6/uL Hemoglobin 14.3 11.5-16.0 g/dL Hematocrit 43 35-52 % Mean Corpuscular Volume 96 80-99 fL Mean Corpuscular Hemoglobin 32 25-34 pg Mean Corpuscular Hemoglobin Concent 34 32-36 g/dL Red Cell Distribution Width 13.5 10.0-14.5 % Platelet Count 205 130-400 10^3/uL Mean Platelet Volume 10.8 9.0-12.2 fL Immature Granulocyte % (Auto) 1 % Neutrophils (%) (Auto) 56 42-75 % Lymphocytes (%) (Auto) 38 12-44 % Monocytes (%) (Auto) 5 0-12 % Eosinophils (%) (Auto) 0 0-10 % Basophils (%) (Auto) 0 0-10 % Neutrophils # (Auto) 5.7 1.8-7.8 10^3/uL Lymphocytes # (Auto) 3.8 1.0-4.0 10^3/uL Monocytes # (Auto) 0.5 0.0-1.0 10^3/uL Eosinophils # (Auto) 0.0 0.0-0.3 10^3/uL Basophils # (Auto) 0.0 0.0-0.1 10^3/uL Immature Granulocyte # (Auto) 0.1 0.0-0.1 10^3/uL Neutrophils % (Manual) 62 % Lymphocytes % (Manual) 21 % Monocytes % (Manual) 5 % Reactive Lymphocytes 12 % Blood Morphology Comment NORMAL Prothrombin Time 13.4 12.2-14.7 SEC INR Comment 1.0 0.8-1.4 Activated Partial Thromboplast Time 32 24-35 SEC D-Dimer 0.66 H 0.00-0.49 UG/ML Sodium Level 131 L 135-145 MMOL/L Potassium Level 4.6 3.6-5.0 MMOL/L Chloride Level 95 L 98-107 MMOL/L Carbon Dioxide Level 21 21-32 MMOL/L Anion Gap 15 H 5-14 MMOL/L Blood Urea Nitrogen 15 7-18 MG/DL Creatinine 1.95 H 0.60-1.30 MG/DL Estimat Glomerular Filtration Rate 27 BUN/Creatinine Ratio 8 Glucose Level 177 H 70-105 MG/DL Lactic Acid Level 1.51 0.50-2.00 MMOL/L Calcium Level 8.6 8.5-10.1 MG/DL Corrected Calcium 8.7 8.5-10.1 MG/DL Total Bilirubin 0.3 0.1-1.0 MG/DL Aspartate Amino Transf (AST/SGOT) 40 H 5-34 U/L Alanine Aminotransferase (ALT/SGPT) 29 0-55 U/L Alkaline Phosphatase 78 40-136 U/L C-Reactive Protein High Sensitivity 4.47 H 0.00-0.50 MG/DL Total Protein 8.6 H 6.4-8.2 GM/DL Albumin 3.9 3.2-4.5 GM/DL Urine Color YELLOW Urine Clarity CLEAR Urine pH 6.0 5-9 Urine Specific [place] 1.025 H 1.016-1.022 Urine Protein 3+ H NEGATIVE Urine Glucose (UA) NEGATIVE NEGATIVE Urine Ketones NEGATIVE NEGATIVE Urine Nitrite NEGATIVE NEGATIVE Urine Bilirubin 1+ H NEGATIVE Urine Urobilinogen 0.2 < = 1.0 MG/DL Urine Leukocyte Esterase 2+ H NEGATIVE Urine RBC (Auto) 2+ H NEGATIVE Urine RBC 10-25 H /HPF Urine WBC TNTC H /HPF Urine Squamous Epithelial Cells 25-50 H /HPF Urine Crystals NONE /LPF Urine Bacteria LARGE H /HPF Urine Casts PRESENT /LPF Urine Granular Casts 25-50 H /LPF Urine Mucus NEGATIVE /LPF Urine Culture Indicated YES (OTONIEL COLLINS MD) Medications Given in ED Current Medications Medications Dose Ordered Sig/Juan Route Start Time Stop Time Status Last Admin Dose Admin Ibuprofen 800 mg ONCE ONCE PO 10/16/21 15:00 10/16/21 15:01 DC 10/16/21 15:02 800 MG (OTONIEL COLLINS MD) Vital Signs/I&O 10/16/21 10/16/21 14:50 16:39 Temp 38.6 Pulse 115 77 Resp 18 16 B/P (MAP) 147/83 (104) 70/ Pulse Ox 96 98 O2 Delivery Room Air Room Air (OTONIEL COLLINS MD) Vital Signs/I&O Capillary Refill : (ANTHONY RICHARDSON APRN) Departure Communication (Admissions) Family Conversation NAME: ALEXIS TENA MED REC#: [id number] PT STATUS: REG ER : 1970 PHYSICIAN: ANTHONY RICHARDSON APRN ADMIT DATE: 10/16/21/ER Signed Date of Exam:10/16/21 CHEST 1 VIEW, AP/PA ONLY HISTORY: Cough, dizziness, fever. COMPARISON: None. TECHNIQUE: Frontal view of the chest. FINDINGS: There are patchy airspace opacities in the lungs bilaterally, right greater than left. The cardiac silhouette is stable in size. Sternotomy wires and post-CABG changes are seen. There is no pleural effusion or pneumothorax. IMPRESSION: 1. Patchy airspace opacities bilaterally, consistent with infection. Dictated by: Dictated on workstation # [id number] Dict: 10/16/21 1620 Trans: 10/16/21 [id number] Interpreted by: SUZAN CORONADO MD Electronically signed by: SUZAN CORONADO MD 10/16/21 1624 Her oxygen has occasionally dropped to about 88 to 90% though this is likely associated with sleep apnea because when she awakens oxygen is 92 to 94% on room air. I have discussed monoclonal antibody with her, emergency use authorization, risks of treatment and alternatives to therapy. She like to proceed with receiving this. I will fill out the form and fax to pharmacy. (ANTHONY RICHARDSON APRN) Impression Primary Impression: COVID-19 Disposition: 01 HOME, SELF-CARE Condition: Stable Departure-Patient Inst. Decision time for Depature: 15:36 (ANTHONY RICHARDSON APRN) Referrals: NO,LOCAL PHYSICIAN (PCP/Family) Primary Care Physician Patient Instructions: COVID-19 ED Add. Discharge Instructions: 1. Tylenol as needed for fever control. Return to ER for any worsening symptoms. Hospital will call you otherwise to schedule antibody infusion. ATTENDING PHYSICIAN NOTE: I was physically present as attending physician in the emergency department during the care of this patient, but I was not directly involved in the decision making or delivery of care for this patient. (OTONIEL COLLINS MD) ANTHONY RICHARDSON APRN Oct 16, 2021 15:02 OTONIEL COLLINS MD Oct 16, 2021 19:26
[2021-10-16 15:07] LABS: BASOPHILS % (AUTO) 0 % (0-10); EOSINOPHILS % (AUTO) 0 % (0-10); HEMATOCRIT 43 % (35-52); HEMOGLOBIN 14.3 g/dL (11.5-16.0); LYMPHOCYTES # (AUTO) 3.8 10^3/uL (1.0-4.0); LYMPHOCYTES % (AUTO) 38 % (12-44); MEAN CORPUSCULAR HEMOGLOBIN 32 pg (25-34); MEAN CORPUSCULAR HGB CONC 34 g/dL (32-36); MEAN CORPUSCULAR VOLUME 96 fL (80-99); MEAN PLATELET VOLUME 10.8 fL (9.0-12.2); MONOCYTES # (AUTO) 0.5 10^3/uL (0.0-1.0); MONOCYTES % (AUTO) 5 % (0-12); NEUTROPHILS # (AUTO) 5.7 10^3/uL (1.8-7.8); NEUTROPHILS % (AUTO) 56 % (42-75); PLATELET COUNT 205 10^3/uL (130-400); WHITE BLOOD COUNT 10.1 10^3/uL (4.3-11.0)
[2021-10-16 15:19] LABS: ALBUMIN 3.9 GM/DL (3.2-4.5); POTASSIUM 4.6 MMOL/L (3.6-5.0)
[2021-10-16 15:21] LABS: CALCIUM 8.6 MG/DL (8.5-10.1)
[2021-10-16 15:22] LABS: PROTHROMBIN TIME PATIENT 13.4 SEC (12.2-14.7); TOTAL PROTEIN 8.6 GM/DL (6.4-8.2)
[2021-10-16 15:23] LABS: BILIRUBIN,TOTAL 0.3 MG/DL (0.1-1.0)
[2021-10-16 15:25] LABS: CREATININE SERUM 1.95 MG/DL (0.60-1.30)
[2021-10-16 15:43] LABS: LYMPHOCYTES % (MANUAL) 21 %; MONOCYTES % (MANUAL) 5 %; NEUTROPHILS % (MANUAL) 62 %; RBC MORPH NORMAL; REACTIVE LYMPHOCYTES 12 %
[2021-10-16 16:02] LABS: CLARITY,URINE CLEAR; COLOR,URINE YELLOW; GLUCOSE, URINE (UA) NEGATIVE (NEGATIVE); KETONES,URINE NEGATIVE (NEGATIVE); LEUKOCYTE ESTERASE ,URINE 2+ (NEGATIVE); NITRITE,URINE NEGATIVE (NEGATIVE); PROTEIN,URINE 3+ (NEGATIVE)
--- NOTE | 2021-10-16 16:22 | Diagnostic Imaging Report ---
HISTORY: Cough, dizziness, fever. COMPARISON: None. TECHNIQUE: Frontal view of the chest. FINDINGS: There are patchy airspace opacities in the lungs bilaterally, right greater than left. The cardiac silhouette is stable in size. Sternotomy wires and post-CABG changes are seen. There is no pleural effusion or pneumothorax. IMPRESSION: 1. Patchy airspace opacities bilaterally, consistent with infection. Dictated by: Dictated on workstation # [id number]
[2021-10-16 16:39] VITALS: BP_SYST 70
[2021-10-16 16:44] LABS: BACTERIA,URINE LARGE /HPF; BILIRUBIN,URINE 1+ (NEGATIVE); WBC,URINE TNTC /HPF
[2021-10-16 16:45] LABS: GRANULAR CASTS,URINE 25-50 /LPF; SQUAMOUS EPITHELIAL CELL,UR 25-50 /HPF
== END 2021-10-16 16:39 | disposition home or self-care (01) ==
LOC: EDUNIT# 14:37 → ER 14:39
DX: U07.1 COVID-19 (principal); R00.0 Tachycardia, unspecified; I10 Essential (primary) hypertension; E11.9 Type 2 diabetes mellitus without complications; Z79.01 Long term (current) use of anticoagulants
CPT/HCPCS: 36415; 71045; 80053; 81000; 83605; 85007; 85027; 85379; 85610; 85730; 86141; 87040; 87077; 87088; 87186; 87636

== ENCOUNTER → 2022-08-25 | Outpatient (CLI) | payer MEDICARE, MEDICAID ==
[~2022-08-25] VITALS: Ht 154 cm; Wt 101.0 kg
[~2022-08-25] MED LIST changes: +CATHETER FLUSH 10 ML SYR IVP PRN; +REGADENOSON 0.4 MG/5 ML SYR (LEXISCAN) IV ONE
[2022-08-25 12:55] VITALS: BP 134/69
--- NOTE | 2022-08-26 22:24 | STRESS TEST ---
DATE OF SERVICE: 08/25/2022 RESTING AND POST REGADENOSON TECHNETIUM-99M TETROFOSMIN SPECT CT IMAGING ORDERING PHYSICIAN: Dr. Dobbs. CLINICAL DIAGNOSIS: Shortness of breath. Baseline images were carried out after injection of 10.53 mCi of technetium-99m Tetrofosmin. This was followed by 0.4 mg regadenoson and 31 mCi of technetium-99m Tetrofosmin for stress imaging. The electrocardiogram showed sinus rhythm at baseline. It showed nonspecific T-wave abnormality at baseline. It did not change significantly with regadenoson infusion. The patient noted some shortness of breath following regadenoson infusion, which resolved in a few minutes. Review of images at rest and following stress indicates a predominantly fixed inferolateral perfusion defect. Gated images show inferolateral akinesis. Left ventricular ejection fraction is calculated to be 60%. CONCLUSIONS: 1. Inferolateral myocardial infarction without significant ischemia. 2. Inferolateral akinesis. 3. Left ventricular ejection fraction is calculated to be 60%. Job ID: [id number] DocumentID: [id number] Dictated Date: 08/26/2022 16:52:57 Merchandiser Date: 08/26/2022 22:23:35 Dictated By: TATYANA DOBBS MD, MA, FACP, FACC,
== END ==
LOC: CARD 10:49
PROVIDERS: ATTEND Internal Medicine Cardiovascular Disease
DX: I21.19 ST elevation (STEMI) myocardial infarction involving other coronary artery of inferior wall (principal)
CPT/HCPCS: 78452; 93017; A9502

== ENCOUNTER → 2022-08-27 | Outpatient (CLI) | payer MEDICARE, MEDICAID ==
[~2022-08-27] MED LIST changes: -CATHETER FLUSH 10 ML SYR IVP PRN; -REGADENOSON 0.4 MG/5 ML SYR (LEXISCAN) IV ONE
== END ==
LOC: CARD 12:00
PROVIDERS: ATTEND Internal Medicine Cardiovascular Disease
DX: I51.7 Cardiomegaly (principal); I25.10 Atherosclerotic heart disease of native coronary artery without angina pectoris
CPT/HCPCS: 93306

== ENCOUNTER → 2022-11-09 | Outpatient (CLI) | payer MEDICARE, MEDICAID ==
[~2022-11-09] MED LIST changes: +RT-ALBUTEROL SULF 2.5 MG/3 ML PRE-MIX VIAL INH ONE
== END ==
LOC: RT 09:15
PROVIDERS: ATTEND Nurse Practitioner Family
DX: J44.9 Chronic obstructive pulmonary disease, unspecified (principal); F17.200 Nicotine dependence, unspecified, uncomplicated
CPT/HCPCS: 94060; 94726; 94729

== ENCOUNTER 2023-07-05 14:54 | Emergency (ER) | payer MEDICARE ==
[~2023-07-05] VITALS: Ht 157.4 cm; Wt 113.6 kg
[~2023-07-05 14:54] MED LIST changes: -RT-ALBUTEROL SULF 2.5 MG/3 ML PRE-MIX VIAL INH ONE
[2023-07-05] MEDS ORDERED: NS IV 1000 ML 1,000 ML IV STA ×2 (15:48→16:26)
--- NOTE | 2023-07-05 15:51 | ED General ---
General Chief Complaint: General Problems/Pain Stated Complaint: GENERAL WEAKNESS Nursing Triage Note: pt states she was in the hospital in [place] a couple weeks ago for a uti. was supposed to follow up with her pcp last week but started to not feel good so [facility] did not see her. states she has been weak and not feeling well for a few days Source of Information: Patient Exam Limitations: No Limitations History of Present Illness Date Seen by Provider: Jul 05, 2023 Time Seen by Provider: 15:49 Initial Comments Patient is a 53-year-old female with a history of COPD, stroke, diabetes who presents to ED for fatigue and weakness. Symptoms over the past 2 weeks. Patient states she has not been feeling well. Patient states she was admitted two weeks at [facility] for uti. She was placed on antibiotics which she cannot re call. She denies of vomiting, diarrhea. She reports nausea. She reports lower back pain but denies of any specific injury. She urinates every 2 hours which is normal. Patient Denies headache, chest pain, shortness of breath, abdominal pain, cough, wheezing, fever, chills dizziness, visual changes. Allergies and Home Medications Allergies Coded Allergies: No Known Drug Allergies (Unverified , 10/16/21) Patient Home Medication List Home Medication List Reviewed: Yes Amitriptyline HCl (Amitriptyline HCl) 25 Mg Tablet, (Reported) Entered as Reported by: JESSICA DARNELL on 07/26/18 141 Atorvastatin Calcium (Atorvastatin Calcium) 40 Mg Tablet, (Reported) Entered as Reported by: JESSICA DARNELL on 07/26/18 141 Clopidogrel Bisulfate (Clopidogrel) 75 Mg Tablet, (Reported) Entered as Reported by: JESSICA DARNELL on 07/26/18 1412 Dantrolene Sodium (Dantrolene Sodium) 25 Mg Capsule, (Reported) Entered as Reported by: JESSICA DARNELL on 07/26/18 1412 Duloxetine HCl (Duloxetine HCl) 60 Mg Capsule., (Reported) Entered as Reported by: JESSICA DARNELL on 07/26/18 1413 Furosemide (Furosemide) 20 Mg Tablet, (Reported) Entered as Reported by: JESSICA DARNELL on 07/26/18 141 Glyburide (Glyburide) 2.5 Mg Tablet, (Reported) Entered as Reported by: JESSICA DARNELL on 07/26/18 1412 Levothyroxine Sodium (Levothyroxine Sodium) 200 Mcg Tablet, (Reported) Entered as Reported by: JESSICA DARNELL on 07/26/18 1412 Metoprolol Tartrate (Metoprolol Tartrate) 25 Mg Tablet, (Reported) Entered as Reported by: JESSICA DARNELL on 07/26/18 1413 Mirabegron (Myrbetriq) 50 Mg Tab.er.24h, (Reported) Entered as Reported by: JESSIAC DARNELL on 07/26/18 1412 Review of Systems Review of Systems Constitutional: No chills; malaise, weakness EENTM: No ear pain, No blurred vision, No double vision Respiratory: No cough, No dyspnea on exertion Cardiovascular: No chest pain Gastrointestinal: No abdominal pain, No constipation, No diarrhea; nausea; No vomiting Genitourinary: No decreased output, No discharge; frequency Musculoskeletal: No back pain Skin: No change in color, No change in hair/nails All Other Systems Reviewed Negative Unless Noted: Yes Past Mwnqjzp-Oqrcsb-Wenzbk Hx Patient Social History Tobacco Use?: Yes Smoking Status: Current Everyday Smoker Substance use?: No Alcohol Use?: No Past Medical History Surgery/Hospitalization HX: hypothyroid, dm, cad,htn, afib, pvd Surgeries: Yes ([facility]IP[facility] BYPASS) Gallbladder Respiratory: No Cardiac: Yes Hypertension Neurological: No Gastrointestinal: No Musculoskeletal: No Endocrine: Yes Diabetes, Insulin dep HEENT: No Cancer: No Integumentary: No Physical Exam Vital Signs Vital Signs - First Documented 07/05/23 15:01 Temp 37.9 Pulse 106 Resp 20 B/P (MAP) 116/78 (91) Pulse Ox 93 Capillary Refill : Height, Weight, BMI Height: 5'1.00" Weight: 220lbs. oz. 99.462645gm; 45.00 BMI Method:Stated General Appearance: No Apparent Distress, WD/WN Eyes: Bilateral Eye Normal Inspection, Bilateral Eye PERRL, Bilateral Eye EOMI HEENT: PERRL/EOMI, TMs Normal, Normal ENT Inspection, Pharynx Normal Neck: Full Range of Motion, Normal Inspection, Non Tender, Supple Respiratory: Chest Non Tender, Lungs Clear, Normal Breath Sounds, No Accessory Muscle Use, No Respiratory Distress Cardiovascular: Regular Rate, Rhythm, No Edema, No Gallop, No JVD, No Murmur Gastrointestinal: Normal Bowel Sounds, No Organomegaly, No Pulsatile Mass, Non Tender Back: Normal Inspection, No Vertebral Tenderness, Vertebral Tenderness (Lumbar midline tenderness.) Extremity: Normal Capillary Refill, Normal Inspection, Normal Range of Motion, Non Tender Neurologic/Psychiatric: Alert, Oriented x3, No Motor/Sensory Deficits, Normal Mood/Affect Skin: Normal Color, Warm/Dry Focused Exam Lactate Level 07/05/23 16:50: Lactic Acid Level 1.57 Lactic Acid Level Laboratory Tests Test 07/05/23 16:50 Lactic Acid Level 1.57 MMOL/L (0.50-2.00) Progress/Results/Core Measures Suspected Sepsis SIRS Temperature: Pulse: 106 Respiratory Rate: 20 Laboratory Tests 07/05/23 15:10: White Blood Count 18.4H Blood Pressure 116 /78 Mean: 91 07/05/23 16:50: Lactic Acid Level 1.57 Laboratory Tests 07/05/23 15:10: Creatinine 3.94H, Platelet Count 329, Total Bilirubin 0.6 Results/Orders Lab Results Laboratory Tests Test 07/05/23 15:10 07/05/23 15:54 07/05/23 16:03 07/05/23 16:50 Range/Units White Blood Count 18.4 H 4.3-11.0 10^3/uL Red Blood Count 3.20 L 3.80-5.11 10^6/uL Hemoglobin 9.8 L 11.5-16.0 g/dL Hematocrit 30 L 35-52 % Mean Corpuscular Volume 94 80-99 fL Mean Corpuscular Hemoglobin 31 25-34 pg Mean Corpuscular Hemoglobin Concent 33 32-36 g/dL Red Cell Distribution Width 14.6 H 10.0-14.5 % Platelet Count 329 130-400 10^3/uL Mean Platelet Volume 10.7 9.0-12.2 fL Immature Granulocyte % (Auto) 2 % Neutrophils (%) (Auto) 82 H 42-75 % Lymphocytes (%) (Auto) 10 L 12-44 % Monocytes (%) (Auto) 6 0-12 % Eosinophils (%) (Auto) 0 0-10 % Basophils (%) (Auto) 0 0-10 % Neutrophils # (Auto) 15.0 H 1.8-7.8 10^3/uL Lymphocytes # (Auto) 1.9 1.0-4.0 10^3/uL Monocytes # (Auto) 1.2 H 0.0-1.0 10^3/uL Eosinophils # (Auto) 0.0 0.0-0.3 10^3/uL Basophils # (Auto) 0.1 0.0-0.1 10^3/uL Immature Granulocyte # (Auto) 0.3 H 0.0-0.1 10^3/uL Neutrophils % (Manual) 79 % Lymphocytes % (Manual) 7 % Monocytes % (Manual) 4 % Band Neutrophils 7 % Reactive Lymphocytes 3 % Clumped Platelets SLIGHT Anisocytosis SLIGHT Sodium Level 128 L 135-145 MMOL/L Potassium Level 4.8 3.6-5.0 MMOL/L Chloride Level 93 L 98-107 MMOL/L Carbon Dioxide Level 19 L 21-32 MMOL/L Anion Gap 16 H 5-14 MMOL/L Blood Urea Nitrogen 36 H 7-18 MG/DL Creatinine 3.94 H 0.60-1.30 MG/DL Estimat Glomerular Filtration Rate 13 BUN/Creatinine Ratio 9 Glucose Level 261 H 70-105 MG/DL Calcium Level 9.4 8.5-10.1 MG/DL Corrected Calcium 9.6 8.5-10.1 MG/DL Total Bilirubin 0.6 0.1-1.0 MG/DL Aspartate Amino Transf (AST/SGOT) 39 H 5-34 U/L Alanine Aminotransferase (ALT/SGPT) 25 0-55 U/L Alkaline Phosphatase 85 40-136 U/L C-Reactive Protein High Sensitivity 20.87 H 0.00-0.50 MG/DL Total Protein 8.7 H 6.4-8.2 GM/DL Albumin 3.8 3.2-4.5 GM/DL Lipase 32 8-78 U/L Influenza Type A (RT-PCR) Not Detected Not Detecte Influenza Type B (RT-PCR) Not Detected Not Detecte SARS-CoV-2 RNA (RT-PCR) Not Detected Not Detecte Urine Color YELLOW Urine Clarity CLOUDY Urine pH 5.5 5-9 Urine Specific Russell 1.025 H 1.016-1.022 Urine Protein 3+ H NEGATIVE Urine Glucose (UA) NEGATIVE NEGATIVE Urine Ketones TRACE H NEGATIVE Urine Nitrite NEGATIVE NEGATIVE Urine Bilirubin 1+ H NEGATIVE Urine Urobilinogen 1.0 < = 1.0 MG/DL Urine Leukocyte Esterase 3+ H NEGATIVE Urine RBC (Auto) 2+ H NEGATIVE Urine RBC 5-10 H /HPF Urine WBC 50-100 H /HPF Urine Squamous Epithelial Cells 5-10 /HPF Urine Crystals PRESENT H /LPF Urine Amorphous Sediment LARGE AZALIA URATES H /LPF Urine Bacteria LARGE H /HPF Urine Casts PRESENT /LPF Urine Granular Casts 5-10 H /LPF Urine Mucus NEGATIVE /LPF Urine Culture Indicated YES Urine Opiates Screen NEGATIVE NEGATIVE Urine Oxycodone Screen NEGATIVE NEGATIVE Urine Methadone Screen NEGATIVE NEGATIVE Urine Propoxyphene Screen NEGATIVE NEGATIVE Urine Barbiturates Screen NEGATIVE NEGATIVE Ur Tricyclic Antidepressants Screen NEGATIVE NEGATIVE Urine Phencyclidine Screen NEGATIVE NEGATIVE Urine Amphetamines Screen NEGATIVE NEGATIVE Urine Methamphetamines Screen NEGATIVE NEGATIVE Urine Benzodiazepines Screen NEGATIVE NEGATIVE Urine Cocaine Screen NEGATIVE NEGATIVE Urine Cannabinoids Screen NEGATIVE NEGATIVE Lactic Acid Level 1.57 0.50-2.00 MMOL/L My Orders Orders - SARAN SUE PA Cbc With Automated Diff (07/05/23 15:48) Comprehensive Metabolic Panel (07/05/23 15:48) Hs C Reactive Protein (07/05/23 15:48) Lipase (07/05/23 15:48) Ua Culture If Indicated (07/05/23 15:48) Ns Iv 1000 Ml (Ns Iv 1000 Ml) (07/05/23 15:48) Covid 19 Inhouse Test (07/05/23 15:48) Influenza A And B By Pcr (07/05/23 15:48) Manual Differential (07/05/23 15:10) Blood Culture (07/05/23 16:25) Lactic Acid Analyzer (07/05/23 16:25) Ceftriaxone Iv/Im (Ceftriaxone Iv/Im) (07/05/23 16:25) Urine Culture (07/05/23 16:03) Ns Iv 1000 Ml (Ns Iv 1000 Ml) (07/05/23 16:26) Chest 1 View, Ap/Pa Only (07/05/23 16:26) Blood Culture (07/05/23 16:34) Ct Abdomen/Pelvis Wo (07/05/23 16:46) Drug Screen Stat (Urine) (07/05/23 17:33) Acetaminophen Tablet (Acetaminophen Ta (07/05/23 18:00) Vancomycin Injection (Vancomycin Injecti (07/05/23 18:00) Medications Given in ED Current Medications Medications Dose Ordered Sig/Juan Route Start Time Stop Time Status Last Admin Dose Admin Acetaminophen 1,000 mg ONCE ONCE PO 07/05/23 18:00 07/05/23 18:01 DC 07/05/23 18:40 1,000 MG Vancomycin HCl 1000 mg/Sodium Chloride 250 ml @ 250 mls/hr ONCE ONCE IV 07/05/23 18:00 07/05/23 18:59 DC 07/05/23 18:40 250 MLS/HR Vital Signs/I&O 07/05/23 07/05/23 15:01 19:19 Temp 37.9 37.9 Pulse 106 102 Resp 20 20 B/P (MAP) 116/78 (91) 116/56 Pulse Ox 93 94 Capillary Refill : Blood Pressure Mean: 91 Departure Communication (PCP) History of stroke with right-sided deficits currently on Plavix, COPD, diabetes who presents to ED with fatigue and weakness. Residual right-sided deficit. Recent admission at [facility] for UTI. No improvement. She was placed on oral antibiotics. Patient was tachycardic and febrile on arrival. She denies of any specific chest pain cough, shortness of breath or abdominal pain. Differential diagnosis, UTI, pneumonia, viral syndrome. Patient was tachy and febrile. Stable blood pressure. Sepsis work-up was initiated. CBC elevated white blood count 18.4, hemoglobin 9.8. Chemistry with a sodium of 128, chloride 93, BUN of 36, creatinine 3.98, GFR 13, blood sugar 261, normal lactic acid, normal liver enzymes and lipase. Patient was started on a liter of fluid. Received Rocephin. Patint Was given Tylenol for fever. She appears dry with acute kidney injury. Urinalysis positive for UTI. COVID influenza negative. Chest x-ray was negative. Patient was complaining of some low back pain. She did have some low vertebral midline tenderness. CT abdomen pelvis was ordered without contrast which noted a masslike density in the retroperitoneum of the right pelvis anterior to the right sacrum. Multiple droplets of gas. Suspicion for area of focal infection. There is obliteration of the fat plane between the area in question in the lumbosacral junction. Suspicious for underlying discitis versus osteomyelitis. She will need further evaluation with MRI. Patient was started on vancomycin. Patient was discussed with our hospitalist for admission. Dr. Botello was consulted. Due to the potential osteomyelitis patient will need more emergent MRI and infectious disease, neurosurgery, and nephrology consult secondary to her acute kidney injury. Did not feel comfortable accepting this patient. Consulted with [facility] in [place]. Recommended transfer to a tertiary center. Consulted with [facility] who refused transfer and states that they recommended admission here for MRI and if needing further treatment patient can be discharged. Consulted with [facility] in [facility] and talk to Dr. Blair in the ER who agreed to accept the patient to the ED for further evaluation. Do not have any ground ambulance for the next 24 hours. Considered critically ill. Patient will be transferred by air. Med flight will be transferring patient. Impression Primary Impression: UTI (urinary tract infection) Additional Impression: Weakness Disposition: ADMITTED INPATIENT Condition: Stable Admissions Decision to Admit Reason: Admit from ER (General) Decision to Admit/Date: Jul 05, 2023 Time/Decision to Admit Time: 17:20 Transfer [facility] Medically Cleared for Xfer: Yes Transfer Reason: Exceeds level of care Time Spoke to Accepting Phy: 19:00 Transfer Progress Notes Accepted by DR. Angel Blair Transfer Time: 19:00 Transfer Facility: [facility] Method of Transfer: Air Departure-Patient Inst. Referrals: NO,LOCAL PHYSICIAN (PCP/Family) Primary Care Physician SARAN SUE Jul 05, 2023 15:51
[2023-07-05 15:53] LABS: BASOPHILS # (AUTO) 0.1 10^3/uL (0.0-0.1); BASOPHILS % (AUTO) 0 % (0-10); EOSINOPHILS % (AUTO) 0 % (0-10); HEMATOCRIT 30 % (35-52); HEMOGLOBIN 9.8 g/dL (11.5-16.0); LYMPHOCYTES # (AUTO) 1.9 10^3/uL (1.0-4.0); LYMPHOCYTES % (AUTO) 10 % (12-44); MEAN CORPUSCULAR HEMOGLOBIN 31 pg (25-34); MEAN CORPUSCULAR HGB CONC 33 g/dL (32-36); MEAN CORPUSCULAR VOLUME 94 fL (80-99); MEAN PLATELET VOLUME 10.7 fL (9.0-12.2); MONOCYTES # (AUTO) 1.2 10^3/uL (0.0-1.0); MONOCYTES % (AUTO) 6 % (0-12); NEUTROPHILS % (AUTO) 82 % (42-75); PLATELET COUNT 329 10^3/uL (130-400); WHITE BLOOD COUNT 18.4 10^3/uL (4.3-11.0)
[2023-07-05 16:11] LABS: ALBUMIN 3.8 GM/DL (3.2-4.5); BILIRUBIN,TOTAL 0.6 MG/DL (0.1-1.0); CALCIUM 9.4 MG/DL (8.5-10.1); CREATININE SERUM 3.94 MG/DL (0.60-1.30); POTASSIUM 4.8 MMOL/L (3.6-5.0); TOTAL PROTEIN 8.7 GM/DL (6.4-8.2)
[2023-07-05 16:15] LABS: BAND NEUTROPHILS 7 %; LYMPHOCYTES % (MANUAL) 7 %; MONOCYTES % (MANUAL) 4 %; NEUTROPHILS % (MANUAL) 79 %; REACTIVE LYMPHOCYTES 3 %
[2023-07-05 16:16] LABS: ANISOCYTOSIS SLIGHT; PLATELET CLUMPS SLIGHT
[2023-07-05 16:24] LABS: CLARITY,URINE CLOUDY; COLOR,URINE YELLOW; GLUCOSE, URINE (UA) NEGATIVE (NEGATIVE); PH,URINE 5.5 (5-9); PROTEIN,URINE 3+ (NEGATIVE)
[2023-07-05 16:25] LABS: AMORPHOUS SEDIMENT,UR LARGE AMOR URATES /LPF; BACTERIA,URINE LARGE /HPF; BILIRUBIN,URINE 1+ (NEGATIVE); KETONES,URINE TRACE (NEGATIVE); LEUKOCYTE ESTERASE ,URINE 3+ (NEGATIVE); NITRITE,URINE NEGATIVE (NEGATIVE); WBC,URINE 50-100 /HPF
[2023-07-05] MEDS ORDERED: cefTRIAXone IV/IM 1,000 MG in NS (IVPB) 50 ML 50 ML IV STA (16:25)
--- NOTE | 2023-07-05 17:00 | Diagnostic Imaging Report ---
Indication: Cough. Time of Exam: 4:24 PM Correlation is made with prior chest from 10/16/2021. The heart is enlarged but stable. Changes of median sternotomy are noted. Lungs are clear. No infiltrates are detected. There is no effusion or pneumothorax. IMPRESSION: No acute cardiopulmonary process is detected. Dictated by: Dictated on workstation # [id number]
--- NOTE | 2023-07-05 17:24 | Diagnostic Imaging Report ---
PROCEDURE: CT abdomen and pelvis without contrast. TECHNIQUE: Multiple contiguous axial images were obtained through the abdomen and pelvis without the use of intravenous contrast. Auto Exposure Controls were utilized during the CT exam to meet ALARA standards for radiation dose reduction. INDICATION: UTI. Weakness, generalized. COMPARISON: None FINDINGS: Included portions of the lung bases are clear. There is moderate calcified aortic and coronary atherosclerosis. CT ABDOMEN: There is an abnormal retroperitoneal soft tissue density anterior to the sacrum on the right. It measures 3.9 x 4.5 cm. There are areas of gas within this collection. Note is made that the right common iliac artery bifurcation is located within this area. This is concerning for an area of infection, although source is not well-defined on this exam. Normal appendix could not be adequately identified, but there is no pericecal inflammation. Small bowel loops are nondilated. There is no free fluid or free air. Multiple punctate nonobstructive right renal calculi are present. Right ureter is difficult to follow in a contiguous fashion, but no calculi are seen along the expected course of the right ureter. Additionally, there is no hydroureteronephrosis or other evidence of obstruction on this exam. Adrenal glands, spleen, pancreas, and liver have an unremarkable noncontrast CT appearance. No abnormal mesenteric or retroperitoneal adenopathy is seen. Osseous structures show no acute abnormalities. No advanced osteolytic process is seen. CT PELVIS: Urinary bladder is unopacified. No calculi are seen within the urinary bladder. No additional loculated fluid collection is seen. There is no free fluid or free air. Osseous structures show no acute abnormalities. IMPRESSION: 1. Masslike density in the retroperitoneum of the right pelvis anterior to the right sacrum. Again, there are multiple droplets of gas. This does raise suspicion for area of focal infection. The source of the potential infection is not well-defined on this exam. Note is made that there is obliteration of fat plane between the area in question and the lumbosacral junction. This does raise suspicion for potential underlying discitis. Please note, osteomyelitis cannot be excluded based on CT alone. If there is clinical concern for osteomyelitis discitis, MRI with contrast as advised. 2. Multiple punctate nonobstructive right renal calculi. Dictated by: Dictated on workstation # [id number]
[2023-07-05 17:50] LABS: AMPHETAMINE SCREEN, URINE NEGATIVE (NEGATIVE); BARBITURATE SCREEN URINE NEGATIVE (NEGATIVE); BENZODIAZEPINES SCREEN URINE NEGATIVE (NEGATIVE); CANNABINOID SCREEN, URINE NEGATIVE (NEGATIVE); COCAINE SCREEN URINE NEGATIVE (NEGATIVE); METHADONE STAT NEGATIVE (NEGATIVE); OPIATE SCREEN URINE NEGATIVE (NEGATIVE); OXYCODONE STAT NEGATIVE (NEGATIVE); PROPOXYPHENE STAT NEGATIVE (NEGATIVE); TRICYCLIC ANTIDEPRESSANTS SCRE NEGATIVE (NEGATIVE)
[2023-07-05] MEDS ORDERED: ACETAMINOPHEN 500 MG TABLET PO ONE (18:00)
[2023-07-05] MEDS ORDERED: VANCOMYCIN INJECTION 1,000 MG in NS (IVPB) 250 ML 250 ML IV ONE (18:00)
[2023-07-05 19:19] VITALS: BP 116/56
== END 2023-07-05 19:41 | disposition short-term general hospital (02) ==
LOC: EDUNIT# 14:54 → ER 14:56
DX: N39.0 Urinary tract infection, site not specified (principal); I63.9 Cerebral infarction, unspecified; G81.91 Hemiplegia, unspecified affecting right dominant side; I10 Essential (primary) hypertension; R00.0 Tachycardia, unspecified; M54.50 Low back pain, unspecified; F17.200 Nicotine dependence, unspecified, uncomplicated; E11.9 Type 2 diabetes mellitus without complications; Z79.4 Long term (current) use of insulin; Z79.02 Long term (current) use of antithrombotics/antiplatelets; Z20.822 Contact with and (suspected) exposure to COVID-19
CPT/HCPCS: 36415; 71045; 74176; 80053; 80306; 81000; 83605; 83690; 85007; 85027; 86141; 87040; 87088; 87636

== ENCOUNTER 2023-07-16 09:33 | Emergency (ER) | payer MEDICARE ==
[~2023-07-16] VITALS: Ht 152.4 cm; Wt 113.7 kg
[2023-07-16 10:00] VITALS: BP 142/67
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
[2023-07-16] MEDS ORDERED: oxyCODONE IMMEDIATE RELEASE 5 MG TABLET PO ONE (12:15)
--- NOTE | 2023-07-16 13:37 | Diagnostic Imaging Report ---
Indication: Peripheral vascular disease, painful and discolored lower leg. There is slow velocity and abnormal diminished resistance with monophasic waveform from the common femoral through the ankle. No obstruction or arterial occlusion. There is very slow velocity of the ankle rates 15 and 5 cm/s at the posterior tibial and dorsalis pedis respectively. There is diffuse subcutaneous edema. No discrete fluid collection. Impression: Diffusely abnormal right lower extremity arterial Doppler with slow monophasic waveform throughout suggests an upstream stenosis in the pelvis or abdomen. No segmental occlusion. No focal lower extremity stenosis suspected. Previous noncontrasted belly CT showed complex gas debris collection circumscribing the atherosclerotic right common iliac. This is presumed contributory to the abnormal right lower extremity Doppler study. CT angiography at that level may provide further utility versus a catheter angiographic study. Dictated by: Dictated on workstation # [id number]
== END 2023-07-16 13:40 | disposition home or self-care (01) ==
LOC: EDUNIT# 09:33 → ER 09:35
DX: S90.111A Contusion of right great toe without damage to nail, initial encounter (principal); M25.551 Pain in right hip; I82.401 Acute embolism and thrombosis of unspecified deep veins of right lower extremity; R10.9 Unspecified abdominal pain; E11.22 Type 2 diabetes mellitus with diabetic chronic kidney disease; I12.9 Hypertensive chronic kidney disease with stage 1 through stage 4 chronic kidney disease, or unspecified chronic kidney disease; N18.9 Chronic kidney disease, unspecified; F17.210 Nicotine dependence, cigarettes, uncomplicated; E66.01 Morbid (severe) obesity due to excess calories; Z79.4 Long term (current) use of insulin; Z79.01 Long term (current) use of anticoagulants; Z68.42 Body mass index [BMI] 45.0-49.9, adult; Z95.9 Presence of cardiac and vascular implant and graft, unspecified; Z86.73 Personal history of transient ischemic attack (TIA), and cerebral infarction without residual deficits; X58.XXXA Exposure to other specified factors, initial encounter
CPT/HCPCS: 93926

== ENCOUNTER 2023-07-21 21:15 | Emergency (ER) | payer MEDICARE ==
[~2023-07-21] VITALS: Ht 162.6 cm; Wt 126.6 kg
[2023-07-21] MEDS ORDERED: NS IV 1000 ML 1,000 ML IV SCH (21:30)
[2023-07-21] MEDS ORDERED: NS IV 500 ML 500 ML IV SCH (21:30)
[2023-07-21 21:38] LABS: BASOPHILS % (AUTO) 0 % (0-10); EOSINOPHILS % (AUTO) 0 % (0-10); HEMATOCRIT 22 % (35-52); LYMPHOCYTES # (AUTO) 1.3 10^3/uL (1.0-4.0); LYMPHOCYTES % (AUTO) 8 % (12-44); MEAN CORPUSCULAR HEMOGLOBIN 29 pg (25-34); MEAN CORPUSCULAR HGB CONC 31 g/dL (32-36); MEAN CORPUSCULAR VOLUME 96 fL (80-99); MEAN PLATELET VOLUME 10.7 fL (9.0-12.2); MONOCYTES # (AUTO) 0.6 10^3/uL (0.0-1.0); MONOCYTES % (AUTO) 4 % (0-12); NEUTROPHILS # (AUTO) 14.5 10^3/uL (1.8-7.8); NEUTROPHILS % (AUTO) 87 % (42-75); PLATELET COUNT 205 10^3/uL (130-400); WHITE BLOOD COUNT 16.5 10^3/uL (4.3-11.0)
[2023-07-21 21:42] LABS: HEMOGLOBIN 6.7 g/dL (11.5-16.0)
--- NOTE | 2023-07-21 21:42 | ED General ---
General Stated Complaint: LETHARGIC Source of Information: Patient, EMS, Senior Living Records, Old Records Exam Limitations: No Limitations History of Present Illness Date Seen by Provider: Jul 21, 2023 Time Seen by Provider: 21:20 Initial Comments 53-year-old female with past medical history of COPD, diabetes, recent DVT on Eliquis, paroxysmal A-fib, severe morbid obesity, and recent severe sepsis coming in via EMS from the [facility] due to decreased responsiveness. They did labs this morning, noted her hemoglobin was 6.7, creatinine greater than 4 which is much higher than normal, and she has had significant diarrhea. She has a PICC line in place and has been on IV ertapenem and p.o. linezolid for recent infection. It was also reported her oxygen saturation was 88 to 89% on room air. She typically is 95% on room air. The patient is confused and further elements of the history and physical unable to be obtained. Allergies and Home Medications Allergies Coded Allergies: No Known Drug Allergies (Unverified , 10/16/21) Patient Home Medication List Home Medication List Reviewed: Yes Amitriptyline HCl (Amitriptyline HCl) 25 Mg Tablet, (Reported) Entered as Reported by: JESSICA DARNELL on 07/26/18 141 Atorvastatin Calcium (Atorvastatin Calcium) 40 Mg Tablet, (Reported) Entered as Reported by: JESSICA DARNELL on 07/26/18 141 Clopidogrel Bisulfate (Clopidogrel) 75 Mg Tablet, (Reported) Entered as Reported by: JESSICA DARNELL on 07/26/18 141 Dantrolene Sodium (Dantrolene Sodium) 25 Mg Capsule, (Reported) Entered as Reported by: JESSICA DARNELL on 07/26/18 1412 Duloxetine HCl (Duloxetine HCl) 60 Mg Capsule., (Reported) Entered as Reported by: JESSICA DARNELL on 07/26/18 1413 Furosemide (Furosemide) 20 Mg Tablet, (Reported) Entered as Reported by: JESSICA DARNELL on 07/26/18 141 Glyburide (Glyburide) 2.5 Mg Tablet, (Reported) Entered as Reported by: JESSICA DARNELL on 07/26/18 141 Levothyroxine Sodium (Levothyroxine Sodium) 200 Mcg Tablet, (Reported) Entered as Reported by: JESSICA DARNELL on 07/26/18 1412 Metoprolol Tartrate (Metoprolol Tartrate) 25 Mg Tablet, (Reported) Entered as Reported by: JESSICA DARNELL on 07/26/18 1413 Mirabegron (Myrbetriq) 50 Mg Tab.er.24h, (Reported) Entered as Reported by: JESSICA James DARNELL on 07/26/18 1412 Review of Systems Review of Systems Constitutional: No fever EENTM: no symptoms reported Respiratory: see HPI Cardiovascular: no symptoms reported Gastrointestinal: see HPI Genitourinary: no symptoms reported Psychiatric/Neurological: See HPI Past Djedmkz-Kpsnve-Gnbcik Hx Past Medical History Surgery/Hospitalization HX: hypothyroid, iddm, cad,htn, afib, pvd Surgeries: Yes (TRIPPLE BYPASS) Cardiac, Section, Gallbladder Respiratory: Yes COPD Cardiac: Yes Atrial Fibrillation, Coronary Artery Disease, Deep Vein Thrombosis, Hypertension Neurological: Yes Paralysis, Stroke Reproductive Disorders: No Genitourinary: Yes Renal Failure, UTI-Chronic Gastrointestinal: Yes Gall Bladder Disease Musculoskeletal: No Endocrine: Yes Diabetes, Insulin dep, Hypothyroidsim HEENT: No Cancer: No Psychosocial: Yes (panic attacks) Anxiety, Depression Integumentary: No Family Medical History No Pertinent Family Hx Physical Exam Vital Signs Vital Signs - First Documented 07/21/23 21:17 Temp 36.4 Pulse 81 Resp 16 B/P (MAP) 58/34 (42) Pulse Ox 95 O2 Delivery Nasal Cannula O2 Flow Rate 3.00 Capillary Refill : Height, Weight, BMI Height: 5'1.00" Weight: 220lbs. oz. 99.722016bq; 48.00 BMI Method:Stated General Appearance: Obese, Other (decreased responsiveness) Eyes: Bilateral Eye Normal Inspection, Bilateral Eye PERRL HEENT: PERRL/EOMI, Normal ENT Inspection Neck: Full Range of Motion, Normal Inspection, Non Tender, Supple Respiratory: Chest Non Tender, No Accessory Muscle Use, No Respiratory Distress, Wheezing Cardiovascular: Regular Rate, Rhythm, Normal Peripheral Pulses Gastrointestinal: Normal Bowel Sounds, Non Tender, Soft Back: Normal Inspection, No CVA Tenderness Extremity: Other (Right lower extremity with toes that are almost purple in hue, difficult to palpate distal pulses, does have bilateral lower extremity edema) Neurologic/Psychiatric: Alert, Other (Oriented to person only, moving all extremities) Focused Exam Lactate Level 07/21/23 21:22: Lactic Acid Level 3.05*H Lactic Acid Level Laboratory Tests Test 07/21/23 21:22 Lactic Acid Level 3.05 MMOL/L (0.50-2.00) *H Procedures/Interventions Lumen: triple Central Line Procedure: sterile drapes applied, sterile dressing applied Position: internal jugular (R) Anesthesia: Lidocaine Volume Anesthetic (ccs): 2 Complications: none Post Position: sutured, good blood return, position confirmed w/ CXR Central line was placed under emergent conditions due to the patient being severely hypotensive despite fluid resuscitation and needing immediate norepinephrine. Patient tolerated this procedure well Progress/Results/Core Measures Suspected Sepsis SIRS Temperature: Pulse: Respiratory Rate: Laboratory Tests 07/21/23 21:22: White Blood Count 16.5H Blood Pressure / Mean: 07/21/23 21:22: Lactic Acid Level 3.05*H Laboratory Tests 07/21/23 21:22: Creatinine 5.60H, INR Comment 1.7H, Platelet Count 205, Total Bilirubin 0.3 Results/Orders Lab Results Laboratory Tests Test 07/21/23 21:22 07/21/23 21:30 07/21/23 22:10 07/21/23 22:53 Range/Units White Blood Count 16.5 H 4.3-11.0 10^3/uL Red Blood Count 2.28 L 3.80-5.11 10^6/uL Hemoglobin 6.7 *L 11.5-16.0 g/dL Hematocrit 22 L 35-52 % Mean Corpuscular Volume 96 80-99 fL Mean Corpuscular Hemoglobin 29 25-34 pg Mean Corpuscular Hemoglobin Concent 31 L 32-36 g/dL Red Cell Distribution Width 17.1 H 10.0-14.5 % Platelet Count 205 130-400 10^3/uL Mean Platelet Volume 10.7 9.0-12.2 fL Immature Granulocyte % (Auto) 1 % Neutrophils (%) (Auto) 87 H 42-75 % Lymphocytes (%) (Auto) 8 L 12-44 % Monocytes (%) (Auto) 4 0-12 % Eosinophils (%) (Auto) 0 0-10 % Basophils (%) (Auto) 0 0-10 % Neutrophils # (Auto) 14.5 H 1.8-7.8 10^3/uL Lymphocytes # (Auto) 1.3 1.0-4.0 10^3/uL Monocytes # (Auto) 0.6 0.0-1.0 10^3/uL Eosinophils # (Auto) 0.0 0.0-0.3 10^3/uL Basophils # (Auto) 0.0 0.0-0.1 10^3/uL Immature Granulocyte # (Auto) 0.1 0.0-0.1 10^3/uL Neutrophils % (Manual) 85 % Lymphocytes % (Manual) 13 % Monocytes % (Manual) 2 % Eosinophils % (Manual) 0 % Basophils % (Manual) 0 % Band Neutrophils 0 % Toxic Granulation 1+ Polychromasia SLIGHT Anisocytosis SLIGHT Macrocytosis SLIGHT Prothrombin Time 20.3 H 12.2-14.7 SEC INR Comment 1.7 H 0.8-1.4 Activated Partial Thromboplast Time 50 H 24-35 SEC Sodium Level 129 L 135-145 MMOL/L Potassium Level 5.3 H 3.6-5.0 MMOL/L Chloride Level 99 98-107 MMOL/L Carbon Dioxide Level 13 L 21-32 MMOL/L Anion Gap 17 H 5-14 MMOL/L Blood Urea Nitrogen 53 H 7-18 MG/DL Creatinine 5.60 H 0.60-1.30 MG/DL Estimat Glomerular Filtration Rate 9 BUN/Creatinine Ratio 9 Glucose Level 115 H 70-105 MG/DL Lactic Acid Level 3.05 *H 0.50-2.00 MMOL/L Calcium Level 8.2 L 8.5-10.1 MG/DL Corrected Calcium 9.2 8.5-10.1 MG/DL Total Bilirubin 0.3 0.1-1.0 MG/DL Aspartate Amino Transf (AST/SGOT) 711 H 5-34 U/L Alanine Aminotransferase (ALT/SGPT) 117 H 0-55 U/L Alkaline Phosphatase 120 40-136 U/L Troponin I 0.214 H <0.028 NG/ML C-Reactive Protein High Sensitivity 19.16 H 0.00-0.50 MG/DL Total Protein 6.6 6.4-8.2 GM/DL Albumin 2.7 L 3.2-4.5 GM/DL Venous Blood pH 7.17 L 7.31-7.41 Venous Blood Partial Pressure CO2 50 40-52 MMHG Venous Blood HCO3 17 L 22-28 MMOL/L Influenza Type A (RT-PCR) Not Detected Not Detecte Influenza Type B (RT-PCR) Not Detected Not Detecte SARS-CoV-2 RNA (RT-PCR) Not Detected Not Detecte Urine Color YELLOW Urine Clarity CLEAR Urine pH 5.0 5-9 Urine Specific [place] 1.020 1.016-1.022 Urine Protein 1+ H NEGATIVE Urine Glucose (UA) NEGATIVE NEGATIVE Urine Ketones NEGATIVE NEGATIVE Urine Nitrite POSITIVE H NEGATIVE Urine Bilirubin NEGATIVE NEGATIVE Urine Urobilinogen 0.2 < = 1.0 MG/DL Urine Leukocyte Esterase 1+ H NEGATIVE Urine RBC (Auto) TRACE H NEGATIVE Urine RBC 0-2 /HPF Urine WBC 10-25 H /HPF Urine Squamous Epithelial Cells 2-5 /HPF Urine Crystals NONE /LPF Urine Bacteria MODERATE H /HPF Urine Casts NONE /LPF Urine Mucus SMALL H /LPF Urine Yeast LARGE H /HPF Urine Culture Indicated CULTURE PENDING My Orders Orders - SARAN HECTOR MD Cbc With Automated Diff (07/21/23:) Comprehensive Metabolic Panel (07/21/23:) Blood Culture (07/21/23:) Urinalysis (07/21/23:) Urine Culture (07/21/23:) Protime With Inr (07/21/23:) Partial Thromboplastin Time (07/21/23:) Chest 1 View, Ap/Pa Only (07/21/23:27) Ed Iv/Invasive Line Start (07/21/23 21:27) Ed Iv/Invasive Line Start (07/21/23:27) Ekg Tracing (07/21/23:) Troponin I Desi (07/21/23 21:27) Vital Signs Adult Sepsis Patie Q15M (07/21/23 21:27) O2 (07/21/23 21:27) Remove Rings In Anticipation O (07/21/23:) Lactic Acid Analyzer (07/21/23:) Influenza A And B By Pcr (07/21/23:27) Ns Iv 1000 Ml (Ns Iv 1000 Ml) (07/21/23 21:30) Hs C Reactive Protein (07/21/23:) Covid 19 Inhouse Test (07/21/23 21:27) C Difficile Ag + Toxin A/B. (07/21/23 21:27) Vital Signs: Special (Order) (07/21/23 21:27) Consent-Obtain Consent For (07/21/23 21:) Monitor S/S Transfusion Reacti (07/21/23 21:27) Ns Iv 500 Ml (Ns Iv 500 Ml) (07/21/23 21:30) Type And Screen (07/21/23:) Red Cells Leukocytes Reduced (07/21/23 21:27) Venous Blood Gas (07/21/23 21:31) Manual Differential (07/21/23 21:22) Norepinephrine 8 Mg/250 Ml (Norepinephri (07/21/23 21:58) Norepinephrine 8 Mg/250 Ml (Norepinephri (07/21/23 22:18) Lactated Ringers 1,000 Ml (Lactated Ring (07/21/23 22:54) Catheter(Urinary) Insert & Ass 03,15 (07/21/23 23:08) Vital Signs/I&O 07/21/23 07/21/23 07/21/23 07/21/23 21:17 22:04 22:19 22:27 Temp 36.4 36.3 36.3 36.4 Pulse 81 82 85 83 Resp 16 16 17 16 B/P (MAP) 58/34 (42) Pulse Ox 95 95 97 96 O2 Delivery Nasal Cannula Nasal Cannula Nasal Cannula Nasal Cannula O2 Flow Rate 3.00 3.00 3.00 3.00 07/21/23 07/21/23 23:05 23:20 Pulse 86 86 B/P (MAP) 41/29 Capillary Refill : Progress Note : Progress Note 53-year-old female brought [facility] by EMS from the [facility] due to decreased responsiveness. On arrival here, the patient's eyes were open, she is answering questions but confused. She has decreased capillary refill and looks pale. Difficult to obtain blood pressure, with a history of hemoglobin of 6.7 drawn earlier today, we contacted the blood bank and ordered a unit of uncrossed matched blood O+. Ordered fluids as well. Patient's ideal body weight is 54 kg, she received more than 20/kg of fluids. Basic labs including septic work-up obtained. Stool was sent for C. difficile as the patient was having massive amounts of completely liquid stool constantly. Likely is very hypovolemic. The stool is brown, was fecal occult blood positive. She is on Eliquis. Are significant for hemoglobin of 6.7 here as well, elevated leukocytosis, very elevated creatinine 5.6 which is new for her, potassium just above 5, troponin slightly elevated which is likely a type II NSTEMI in the setting of her hypotension. I emergently placed a central line since the patient only had a PICC line and had very difficult to obtain IV access. Norepinephrine was started through that. I contacted [facility], the patient was a excepted for admission through the emergency department to Dr. Flynn her hypovolemic shock and acute renal failure. The patient is getting broad-spectrum antibiotics via IV, she already received these today, we did not give her another dose of IV antibiotics in the ER here. I think the large portion of her issues are actually due to the antibiotics causing the diarrhea and hypovolemia. Prior to being transferred, last blood pressure was 120/90, we were titrating down the norepinephrine. An extra liter of fluids had been given just prior to this. Patient is likely approaching euvolemia. ECG Initial ECG Impression Date: Jul 21, 2023 Initial ECG Impression Time: 22:07 Initial ECG Rate: 83 Initial ECG Rhythm: Normal Sinus Comment QRS duration of 112 ms which is technically narrow, no STEMI, ST depression almost globally Diagnostic Imaging Diagonstic Imaging: Xray (chest) Comments Chest ordered and interpreted by me showing no pneumothorax and the central line is in good position Critical Care Note Critical Care Start Time: 21:20 Stop Time: 23:50 Total Time (minutes) 67 Progress All time billed for critical care was separate from procedures. Patient was hemodynamically unstable requiring frequent reassessments and medication changes. Time was also spent discussing the case with other physicians and family. Departure Impression Primary Impression: Hypovolemic shock Additional Impression: ARF (acute renal failure) Qualified Codes: N17.8 - Other acute kidney failure Disposition: 02 XFER SHT-TRM HOSP Condition: Critical Admissions Decision to Admit/Date: Jul 21, 2023 Time/Decision to Admit Time: 22:30 Transfer Medically Cleared for Xfer: Yes Transfer Reason: Exceeds level of care (needs nephrology) Time Spoke to Accepting Phy: 22:50 Transfer Progress Notes Accepted to [facility] by Dr. Flynn in the ER Transfer Facility: [facility] Method of Transfer: Air Departure-Patient Inst. Referrals: [facility] (PCP/Family) Primary Care Physician SARAN HECTOR MD Jul 21, 2023 21:42
[2023-07-21 21:49] LABS: POTASSIUM 5.3 MMOL/L (3.6-5.0)
[2023-07-21 21:50] LABS: CALCIUM 8.2 MG/DL (8.5-10.1)
[2023-07-21 21:53] LABS: BILIRUBIN,TOTAL 0.3 MG/DL (0.1-1.0)
[2023-07-21] MEDS ORDERED: NOREPINEPHRINE 8 MG/250 ML 250 ML IV STA (21:58)
[2023-07-21 22:07] LABS: INR 1.7 (0.8-1.4); PROTHROMBIN TIME PATIENT 20.3 SEC (12.2-14.7)
[2023-07-21 22:17] LABS: ALBUMIN 2.7 GM/DL (3.2-4.5); CREATININE SERUM 5.6 MG/DL (0.60-1.30); TOTAL PROTEIN 6.6 GM/DL (6.4-8.2)
[2023-07-21] MEDS ORDERED: NOREPINEPHRINE 8 MG/250 ML 250 ML IV ONE (22:18)
[2023-07-21 22:29] LABS: ANISOCYTOSIS SLIGHT; BAND NEUTROPHILS 0 %; BASOPHILS % (MANUAL) 0 %; EOSINOPHILS % (MANUAL) 0 %; LYMPHOCYTES % (MANUAL) 13 %; MONOCYTES % (MANUAL) 2 %; NEUTROPHILS % (MANUAL) 85 %; POLYCHROMASIA SLIGHT; TOXIC GRANULATION/VACUOLAZATIO 1+
[2023-07-21] MEDS ORDERED: LACTATED RINGERS 1,000 ML 1,000 ML IV STA (22:54)
[2023-07-21 23:16] LABS: BACTERIA,URINE MODERATE /HPF; BILIRUBIN,URINE NEGATIVE (NEGATIVE); CLARITY,URINE CLEAR; COLOR,URINE YELLOW; GLUCOSE, URINE (UA) NEGATIVE (NEGATIVE); KETONES,URINE NEGATIVE (NEGATIVE); LEUKOCYTE ESTERASE ,URINE 1+ (NEGATIVE); NITRITE,URINE POSITIVE (NEGATIVE); PROTEIN,URINE 1+ (NEGATIVE); RBC,URINE 0-2 /HPF
[2023-07-21 23:17] LABS: YEAST,URINE LARGE /HPF
[2023-07-21 23:40] VITALS: BP 133/96
--- NOTE | 2023-07-22 06:34 | Diagnostic Imaging Report ---
INDICATION: Hypotension, respiratory distress Portable chest 10:55 PM There are postoperative changes from a median sternotomy. Right IJ central line tip projects over the SVC. Heart size and pulmonary vascularity are within normal limits. There are no infiltrates, effusions or pneumothoraces. IMPRESSION: Postsurgical changes in the chest. No acute abnormalities seen. Dictated by: Dictated on workstation # [id number]
== END 2023-07-22 00:20 | disposition short-term general hospital (02) ==
LOC: EDUNIT# 21:15 → ER 21:17
DX: N17.9 Acute kidney failure, unspecified (principal); R57.1 Hypovolemic shock; D72.829 Elevated white blood cell count, unspecified; E66.01 Morbid (severe) obesity due to excess calories; E11.9 Type 2 diabetes mellitus without complications; Z79.4 Long term (current) use of insulin; Z86.718 Personal history of other venous thrombosis and embolism; Z79.01 Long term (current) use of anticoagulants; Z95.9 Presence of cardiac and vascular implant and graft, unspecified; Z20.822 Contact with and (suspected) exposure to COVID-19; Z68.42 Body mass index [BMI] 45.0-49.9, adult
CPT/HCPCS: 36430; 36556; 51702; 71045; 80053; 81000; 82274; 82805; 82947; 83605; 84484; 85007; 85027; 85610; 85730; 86141; 86850; 86900; 86901; 86920; 87040; 87088; 87324; 87449; 87636; 93005; 99285; P9016; 36415